=== PATIENT | male | born 1930 | race Caucasian/White ===

== ENCOUNTER 2018-01-07 13:09 | Inpatient (IN) ==
[2018-01-07] MEDS ORDERED: Acetaminophen 325 MG TABLET PO PRN (17:52)
[2018-01-07] MEDS ORDERED: Naloxone 0.4 MG/ML INJ IVP PRN (17:52)
--- NOTE | 2018-01-07 17:54 | Event Note ---
Date of Encounter: 01/07/18 Time of Encounter: 17:50 I have personally performed a face to face evaluation on this patient. I have reviewed and agree with the care plan. History and Exam by me shows: Patient presented on outside hospital for evaluation of severe shortness of breath. Has been progressive over the last 24 hours. He also burning sensation of the upper chest and face. Upon presentation his EKG showed SVT with heart rate in the 200s. He was given adenosine 6 mg and he converted to sinus rhythm. He was given IV fluids and transferred for further workup and care. On exam he is in no acute distress, appears dyskinetic. Heart is regular rate and rhythm S1-S2 with a systolic murmur. Lungs are clear with coarse breath sounds. A: SVT, pancytopenia P: trend troponin, Echo, consult cardiology, consult hematology. Transfuse 2 units platelets.
[2018-01-07] MEDS ORDERED: Ipratropium/Albuterol Neb 3 ML IH PRN (19:01)
[2018-01-07] MEDS ORDERED: Saline Nasal Spray 44 ML BOTTLE NS PRN (19:04)
--- NOTE | 2018-01-07 19:35 | Internal Med History&Physical ---
<Sam Modi - Last Filed: 01/07/18 20:19> Date of Encounter: 01/07/18 Time of Encounter: 18:00 Assessment and Plan (1) Pancytopenia Current visit: Yes Status: Acute Acute pancytopenia w/WBC of 2.9, RBC of 2.47, and platelets of 7K. Pt has chronic anemia and Hgb of 8.1 and Hct of 25.1 today is at or near his recent baseline. Pt. typed and screened. Will transfuse w/2 units of platelets. Platelet count at 23:55. Pt. reports generalized weakness most likely d/t current pancytopenia. Pt. has cancer hx, so concerning for need for further testing. Consult for Oncology Hematology ordered and discussed w/Dr. Barrow and I appreciate the consult. Falls/safety precautions, up with assist, and bed rest w/bathroom privileges w/assist only. Pt. discussed w/Dr. Cohen who is in agreement w/plan of care. Pat is high risk for further morbidity d/t current pancytopenia, anemia, new onset of SVT, generalized weakness and frailty, current tobacco abuse, hx, and other risk factors. Inpatient. (2) SVT (supraventricular tachycardia) Current visit: Yes Status: Acute Acute SVTs today. Pt. presented to [facility] ED today w/onset of sx. Denies hx. Pt. has hx of chronic anemia and is currently pancytopenic. Pt. received adenosine at [facility] which resolved SVT. Continuous cardiac telemetry. Echocardiogram. Cardiology consult ordered and discussed w/Dr. Stauffer and I appreciate the consult. Monitor. (3) SOB (shortness of breath) Current visit: Yes Status: Acute Acute SOB over the past 24 hours. Pt. has hx of COPD and is current smoker of 1/ 2 to 1 PPD. concern is for possible PE d/t D-dimer of 635. D/t pts. renal function, VQ scan ordered to r/o PE. Supplemental O2 w/titration and SpO2 monitoring. DuoNebs Q6 PRN. (4) Generalized weakness Current visit: Yes Status: Acute Acute generalized weakness most likely d/t current pancytopenia and chronic anemia. Nutrition consult ordered for PO supplementation. PT/OT consults ordered to assess for ambulation strength, stability, and safety. Falls/safety precautions/up with assist/bed rest w/bathroom privileges w/assist only. Monitor f/u labs. (5) HLD (hyperlipidemia) Current visit: Yes Status: Chronic Hx of chronic HLD. Lipid panel in a.m. labs. Continue pts. Zocor. Qualifiers: Hyperlipidemia type: pure hypercholesterolemia Qualified Code(s): E78.00 - Pure hypercholesterolemia, unspecified; E78.0 - Pure hypercholesterolemia (6) HTN (hypertension) Current visit: Yes Status: Chronic Hx of chronic HTN. Monitor pt. and VS. Continue pts. Lopressor. Qualifiers: Hypertension type: essential hypertension Qualified Code(s): I10 - Essential (primary) hypertension (7) GERD (gastroesophageal reflux disease) Current visit: Yes Status: Chronic Hx of chronic GERD. IVP Zofran 4 mg every 6 when necessary for nausea and vomiting. IVP Protonix 40 mg daily. Qualifiers: Esophagitis presence: esophagitis presence not specified Qualified Code(s) : K21.9 - Gastro-esophageal reflux disease without esophagitis (8) Anemia Current visit: Yes Status: Chronic Hx of chronic anemia. Hgb 8.1 and Hct 25.1 on admission which is at or near pts. baseline. Patient denies unusual bleeding. Iron profile, B12, and folate levels ordered. H/H in a.m. labs. Monitor. Qualifiers: Anemia type: unspecified type Qualified Code(s): D64.9 - Anemia, unspecified (9) COPD (chronic obstructive pulmonary disease) Current visit: Yes Status: Chronic Hx of chronic COPD. Stable. Supplemental O2 w/titration and SpO2 monitoring. DuoNebs Q6 PRN. Qualifiers: COPD type: unspecified COPD Qualified Code(s): J44.9 - Chronic obstructive pulmonary disease, unspecified (10) DVT prophylaxis Current visit: Yes Status: Acute Bilateral SCDs on LEs for DVT prophylaxis d/t chronic anemia of unknown etiology. Internal Medicine - H&P: HPI Chief complaint: SOB/Generalized Weakness/Palpitations Admitted From: Intrahospital Transfer Plans for Post Hospital Care: Home History of present illness: Mr. 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 Pt. reports hx of anemia w/weakness. Pt. denies recent illness, fever , chills, nausea, vomiting, headache, changes in vision, chest pain, unusual bleeding, abdominal pain, diarrhea, constipation, dizziness, lightheadedness, pre-syncope, or syncope. Past Med Surg Social Fam HX - Past Medical History Source: patient, old records reviewed, obtained from family Medical history: cancer (lung s/p chemo and radiation, and squamous of the vocal cords, spinal stenosis L3-4), COPD (on home oxygen), GERD, hyperlipidemia , osteoporosis, other (vitamin d def, macular degeneration, cataracts bilater, hx of vertebral compression fracture. ) Psychiatric history: no psych history - Past Surgical History Surgical History: orthopedic, other (right shoulder), other (vocal cord polyps, laryngoscopy with bronch for squamous ca of vocal cords.) - Social History Smoking Status: Current every day smoker Packs per day: 1/2 to 1 PPD Smokeless Tobacco Status: No (PT HAS SMOKED X70 YEARS) Alcohol use: none Drug use: none Current living situation: Home, With Family Activity Level: Independent ambulation Recent Out of Country Travel Within the Last 8 Weeks: No Exposure or Possible Exposure to Illness During Travel: No - Family History Father Race: Family Member Ethnicity: Non- Living Status: Age at : 62 Cause of : Asthma/COPD Hx Family Respiratory Disorders: Yes (COPD) Mother Race: Family Member Ethnicity: Non- Living Status: Age at : 99 Cause of : Old age Brother Race: Family Member Ethnicity: Non- Living Status: Age at : 88 Cause of : Complications from surgery Hx Family Cardiac Disorders: Yes Sister Race: Family Member Ethnicity: Non- Living Status: Age at : 90 Cause of : Old age Hx Family Cancer: Yes Internal Medicine - H&P: Meds Simvastatin [Zocor] 40 mg PO HS 08/25/15 [History] Ipratropium/Albuterol Neb [Duoneb] 3 ml IH Q6HR PRN #120 inhsol 08/09/17 [Rx] Metoprolol [Lopressor] 25 mg PO BID 30 Days #60 tablet 08/09/17 [Rx] Acetaminophen [Tylenol] 500 mg PO BID 09/15/17 [History] Cholecalciferol (Vitamin D3) [Vitamin D] 1,000 unit PO DAILY 10/11/17 [History] Sodium Chloride [Saline Nasal Mist] 126 ml NS QID PRN #1 bottle 12/08/17 [Rx] Oxygen 3 each .ROUTE AD 12/11/17 [History] Latanoprost [Xalatan] 1 drop OP AD 01/08/18 [History] 3 Allergy/AdvReac Type Severity Reaction Status Date / Time No Known Allergies Allergy Verified 12/11/17 15:00 All Systems PM: A 10-system review of systems was performed and is negative for pertinent findings except as documented above in the HPI. - Constitutional Constitutional: as per HPI, fatigue, weakness, no chills, no fever(s), no night sweats - EENT Eyes: no change in vision, no discharge, no pain, no photophobia Ears: no ear discharge, no ear pain, no tinnitus Nose, mouth and throat: no dysphagia, no nasal discharge, no neck pain, no sore throat - Breasts Breasts: as per HPI - Cardiovascular Cardiovascular ROS IM: as per HPI, dyspnea, dyspnea on exertion, irregular heart rhythm, palpitations, no chest pain, no diaphoresis, no lightheadedness, no syncope - Respiratory Respiratory: as per HPI, cough, dyspnea, dyspnea on exertion, wheezing, no excessive phlegm production - Gastrointestinal Gastrointestinal: no abdominal pain, no diarrhea, no hematemesis, no hematochezia, no melena, no nausea, no vomiting - Genitourinary Genitourinary ROS male: as per HPI - Musculoskeletal Musculoskeletal ROS IM: no numbness, no tingling - Integumentary Integumentary IM: no rash, no unusual bruising - Neurological Neurological ROS: no confusion, no convulsions, no focal weakness, no numbness, no tingling, no tremor(s) - Psychiatric Psychiatric: as per HPI - Endocrine Endocrine IM: as per HPI - Hematologic/Lymphatic Hematologic/Lymphatic: no easy bruising - Allergic/Immunologic Allergic/Immunologic: as per HPI - Constitutional Vitals: Temp Pulse Resp BP Pulse Ox 98.0 F 106 16 104/57 94 01/07/18 18:44 01/07/18 18:44 01/07/18 18:44 01/07/18 18:44 01/07/18 18:44 General appearance: Present: cooperative, A&O X 3, pleasant, no acute distress, underweight, answers questions appropriately - Head Head exam: Present: atraumatic, normocephalic - Eye Eye exam: Present: PERRL, conjuntiva pink, sclera anicteric Pupils: Present: PERRL - ENT ENT exam: Present: normal exam - Neck Neck exam general surgery: Present: normal inspection, supple, trachea midline. Absent: lymphadenopathy - Respiratory Respiratory exam: Present: decreased breath sounds, wheezes. Absent: accessory muscle use, rales, rhonchi - Cardiovascular Cardiovascular exam: Present: irregular rhythm - GI/Abdominal GI/Abdominal exam: Present: normal bowel sounds, soft, no peritoneal signs. Absent: distended, tenderness - Rectal Rectal exam: Present: deferred - Additional comments: exam deferred. - Extremities Exam Extremities exam: Present: warm, radial pulses palpable and symmetrical. Absent : calf tenderness, cyanotic, pedal edema - Back Exam Back exam: Present: normal inspection - Neurological Exam Neurological exam: Present: CN II-XII intact, oriented X3, no focal deficits. Absent: pronater drift, facial droop, speech deficit - Psychiatric Psychiatric exam: Present: normal affect, normal mood - Skin Skin exam: Present: dry, intact Internal Med - H&P Results - Diagnostic Studies Chest x-ray Additional comments: EXAMINATION: SINGLE VIEW OF THE CHEST 01/07/2018 11:15 am COMPARISON: 07/31/2017 HISTORY: ORDERING SYSTEM PROVIDED HISTORY: sob FINDINGS: Frontal view of the chest demonstrates no lines or tubes. Stable cardiomediastinal silhouette. Hyperexpanded lungs with flattening of the hemidiaphragms is seen. Interval appearance of reticular and ground-glass opacities throughout the lungs. No significant pleural effusions. No pneumothorax. No acute osseous abnormality. XR/XR chest 1V portable IMPRESSION: 1. Interval appearance of reticular and ground-glass opacities throughout the lungs. Differential considerations include pulmonary edema or infection. 2. COPD. D/ / 01/07/2018 11:18:59 Mercedes Kyle MD / earnold Interpreting Provider: Mercedes Kyle MD <Rivera Cohen - Last Filed: 01/08/18 09:59> Date of Encounter: 01/07/18 Internal Medicine - H&P: HPI History of present illness: Mr. Smart is a 87 year old male All Systems PM: A 10-system review of systems was performed and is negative for pertinent findings except as documented above in the HPI. - Constitutional Vitals: Temp Pulse Resp BP Pulse Ox 97.8 F 69 16 103/53 95 01/08/18 08:25 01/08/18 08:25 01/08/18 08:25 01/08/18 08:25 01/08/18 08:25 Internal Med - H&P Results - Labs CBC & Chem 7: 01/08/18 08:08 01/08/18 08:08 Labs: Short CBC 01/07/18 01/08/18 Range/Units 20:13 08:08 WBC 2.5 L (4.3-11.1) K/mcL Hgb 7.6 L (12.9-16.9) g/dL Hct 23.2 L (37.5-50.1) % Plt Count 10 L* 102 L D (140-400) K/mcL BMP 01/08/18 08:08 Sodium 138 Potassium 3.8 Chloride 109 H Carbon Dioxide 24 BUN 19 Creatinine 0.83 Glucose 105 Calcium 8.7 Cardiac Enzymes 01/07/18 01/08/18 Range/Units 20:13 00:11 Troponin I < 0.03 0.03 (< 0.04) ng/mL Liver Function 01/08/18 Range/Units 08:08 Total Bilirubin 0.6 (0.3-1.0) mg/dL AST 14 (13-39) Units/L ALT 14 (7-52) Units/L Alkaline Phosphatase 61 (34-104) Units/L Albumin 3.5 (3.5-5.7) g/dL - Impressions ITS Impressions Pulmonary Perfusion Imaging 01/08/18 07:05 IMPRESSION: Very low probability for pulmonary embolism. D/ / John Richards MD / John Richards MD Interpreting Provider: John Richards MD - Attending Attestation I have personally performed a face to face evaluation on this patient. I have reviewed and agree with the care plan. History and Exam by me shows: I have personally performed a face to face evaluation on this patient. I have reviewed and agree with the care plan. History and Exam by me shows: Patient presented on outside hospital for evaluation of severe shortness of breath associated with cough (cough is chronic for him). It has been progressive over the last 24 hours. He also burning sensation of the upper chest and face. Upon presentation his EKG showed SVT with heart rate in the 200s. He was given adenosine 6 mg and he converted to sinus rhythm. He was given IV fluids and transferred for further workup and care. On exam he is in no acute distress, appears dyskinetic. Heart is regular rate and rhythm S1-S2 with a systolic murmur. Lungs are clear with coarse breath sounds. A: SVT, pancytopenia P: trend troponin, Echo, consult cardiology, consult hematology. Transfuse 2 units platelets.
[2018-01-07] MEDS ORDERED: Pantoprazole 40 MG VIAL IVP SCH (19:45)
[2018-01-07] MEDS ORDERED: Ondansetron 4 MG/2 ML VIAL IVP PRN (19:49)
[2018-01-07 20:41] LABS: % Iron Saturation 39 % (20-55); Iron 88 mcg/dL (65-175); Transferrin 160 mg/dL (203-362)
[2018-01-07] MEDS ORDERED: 0.9 % Sodium Chloride 250 ML ONE (22:29)
[2018-01-08] MEDS ORDERED: 0.9 % Sodium Chloride 250 ML ONE ×2 (03:37→12:27)
[2018-01-08] MEDS: Levalbuterol Neb 0.63 MG/3 ML IH PRN ×2 (05:03→11:15)
[2018-01-08 08:31] LABS: Basophils % 1.2 %; Eosinophils # 0.1 K/mcL (0.0-0.6); Eosinophils % 3.2 %; Hematocrit 23.2 % (37.5-50.1); Hemoglobin 7.6 g/dL (12.9-16.9); Immature Granulocytes % 4.4 % (0-4); Lymphocytes # 0.4 K/mcL (0.6-4.6); Lymphocytes % 17.3 %; Mean Corpuscular HGB Conc 32.8 g/dL (31.6-35.5); Mean Corpuscular Hemoglobin 32.9 pg (28.0-33.3); Mean Corpuscular Volume 100.4 fL (83.0-100.0); Mean Platelet Volume 9.7 fL (9.4-12.4); Monocytes # 0.1 K/mcL (0.0-1.3); Monocytes % 5.2 %; Neutrophils # 1.7 K/mcL (1.6-8.9); Platelet Count 102 K/mcL (140-400); Red Blood Count 2.31 M/mcL (4.19-5.50); Red Cell Distribution Width 20.3 % (11.5-14.5); Segmented Neutrophils % 68.7 %
[2018-01-08 08:33] LABS: INR 1.3; Prothrombin Time 14.1 Seconds (9.4-12.1)
[2018-01-08 08:36] LABS: Activated Partial Thrombo Time 28.7 Seconds (26.0-36.0)
--- NOTE | 2018-01-08 09:10 | Internal Med Progress Note ---
Date of Encounter: 01/08/18 Time of Encounter: 09:08 - Assessment and plan (1) Pancytopenia Current Visit: Yes Status: Acute Assessment and plan: per hx. Follows with Dr. Jones. WBC 2.9, Hgb 8.1, PLTs 10 on admission. Received 2 units FFP with improvement in PLTs to 102. Hgb down to 7.6 on 01/08. Transfuse 1 unit PRBC. Oncology consulted (2) Anemia Current Visit: Yes Status: Chronic Assessment and plan: Hgb down to 7.6 on 01/08. Symptomatic with SOB. Transfuse 1 unit PRBC. Oncology consulted Qualifiers: Anemia type: unspecified type Qualified Code(s): D64.9 - Anemia, unspecified (3) SVT (supraventricular tachycardia) Current Visit: Yes Status: Acute Assessment and plan: Reported SVT per EMS, resolved with adenosine. TTE 07/2017 EF preserved 65%, mild MR, mild TR, severe pulmonary HTN. HRs remain in low 100s; unable to uptitrate BB due to soft/borderline BP. Evaluated by Cardiology who recommended continuing home BB. Duonebs changed to xopenex. No further cardiac work-up while inpt. (4) COPD (chronic obstructive pulmonary disease) Current Visit: Yes Status: Chronic Assessment and plan: per hx. Suspect mild exacerbation with wheezing. No increase in sputum production. Afebrile. Hold on ATB. Add steroid burst, duonebs Qualifiers: COPD type: unspecified COPD Qualified Code(s): J44.9 - Chronic obstructive pulmonary disease, unspecified (5) HTN (hypertension) Current Visit: Yes Status: Chronic Assessment and plan: per hx. BP soft/borderline. Cont home BB while closely monitoring heart rate/BP. Qualifiers: Hypertension type: essential hypertension Qualified Code(s): I10 - Essential (primary) hypertension (6) PAF (paroxysmal atrial fibrillation) Current Visit: Yes Status: Acute Assessment and plan: per hx. With tachycardia as noted above. No anticoagulation with anemia, thrombocyte cytopenia. 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 S/p chemo/radiation. Oncology consulted (8) DVT prophylaxis Current Visit: Yes Status: Acute Assessment and plan: SCD - Subjective Interval history: Seen and examined at bedside. Patient is new to me. Information obtained from chart review and patient report. He is complaining of shortness of breath that is worse with exertion as well as generalized weakness and malaise. No chest pain. No active bleeding. Says he feels a little better overall. - Constitutional Vitals: Temp Pulse Resp BP Pulse Ox 97.8 F 69 16 103/53 95 01/08/18 08:25 01/08/18 08:25 01/08/18 08:25 01/08/18 08:25 01/08/18 08:25 General appearance: Present: cooperative, A&O X 3, pleasant, no acute distress, underweight, answers questions appropriately - Head Head exam: Present: atraumatic, normocephalic - Eye Eye exam: Present: PERRL, conjuntiva pink, sclera anicteric Pupils: Present: PERRL - Neck Neck exam general surgery: Present: supple, trachea midline. Absent: lymphadenopathy - Respiratory Respiratory exam: Present: CTAB. Absent: accessory muscle use, rales, rhonchi, wheezes - Cardiovascular Cardiovascular exam: Present: RRR, +S1, +S2. Absent: diastolic murmur, gallop, rubs, systolic murmur - GI/Abdominal GI/Abdominal exam: Present: normal bowel sounds, soft, no peritoneal signs. Absent: distended, tenderness - Extremities Exam Extremities exam: Present: warm, radial pulses palpable and symmetrical. Absent : calf tenderness, cyanotic, pedal edema - Neurological Exam Neurological exam: Present: CN II-XII intact, oriented X3, no focal deficits. Absent: pronater drift, facial droop, speech deficit - Skin Skin exam: Present: dry, intact Internal Medicine: Result - Labs CBC & Chem 7: 01/08/18 08:08 01/08/18 08:08 Labs: Short CBC 01/07/18 01/08/18 Range/Units 20:13 08:08 WBC 2.5 L (4.3-11.1) K/mcL Hgb 7.6 L (12.9-16.9) g/dL Hct 23.2 L (37.5-50.1) % Plt Count 10 L* 102 L D (140-400) K/mcL Cardiac Enzymes 01/07/18 01/08/18 Range/Units 20:13 00:11 Troponin I < 0.03 0.03 (< 0.04) ng/mL - ABG Interpretation ABG results: PT/INR, D-dimer PT 14.1 Seconds (9.4-12.1) H 01/08/18 08:08 - Impressions Impressions Pulmonary Perfusion Imaging 01/08/18 07:05 IMPRESSION: Very low probability for pulmonary embolism. D/ / John Richards MD / John Richrads MD Interpreting Provider: John Richards MD Consult Discharge Plan - Plan Referrals: Lynne Kim MD [Primary Care Provider] -
[2018-01-08 09:12] LABS: Alanine Aminotransferase 14 Units/L (7-52); Albumin 3.5 g/dL (3.5-5.7); Albumin/Globulin Ratio 0.9 (1.1-2.2); Alkaline Phosphatase 61 Units/L (34-104); Aspartate Amino Transferase 14 Units/L (13-39); BUN/Creatinine Ratio 23 (6-26); Bilirubin,Total 0.6 mg/dL (0.3-1.0); Blood Urea Nitrogen 19 mg/dL (8-23); Calcium 8.7 mg/dL (8.6-10.3); Carbon Dioxide 24 mEq/L (23-29); Chloride 109 mEq/L (98-107); Chol/HDL Ratio 2.2 (0-4.9); Cholesterol 103 mg/dL (< 200); Globulin 3.7 g/dL (2.4-3.5); Glucose 105 mg/dL (70-105); HDL Cholesterol 47 mg/dL (40-59); LDL Cholesterol,Calculated 44 mg/dL (0-99); Magnesium 1.9 mg/dL (1.6-2.6); Osmolality,Calculated 289 (280-300); Potassium 3.8 mEq/L (3.5-5.1); Sodium 138 mEq/L (136-145); Total Protein 7.2 g/dL (6.4-8.9); Triglycerides 61 mg/dL (< 150); eGFR For African Americans > 60 (> 60); eGFR For Non-African Americans > 60 (> 60)
[2018-01-08 09:16] LABS: Hemoglobin A1C 5.5 %
--- NOTE | 2018-01-08 09:22 | Cardiology Consult Note ---
Date of Encounter: 01/08/18 Time of Encounter: 09:17 Assessment and Plan (1) SVT (supraventricular tachycardia) Current Visit: Yes Status: Acute Reported SVT per EMS, resolved with adenosine. Suspect secondary to underlying lung disease, also pancytopenic. Known COPD. Currently requiring 4L O2, on 2L at home. Hx of lung ca and vocal cord SCC, in remission with last treatments being in 2013. On Lopressor 25mg BID at home. BP marginal, will not tolerate increase. Continue current Lopressor dose. K 3.8, Mag 1.9. Echo 07/2017 EF preserved 65%, mild MR, mild TR, severe phtn est RVSP 59mmHg. No further cardiac work-up while inpt. Anticipate sign off once seen and evaluated by Dr. Stauffer. (2) PAF (paroxysmal atrial fibrillation) Current Visit: Yes Status: Acute PAF on prior EKG. Currently SR. [id number] 2 for age. Given pancytopenia with plt count as low as 7k, no anticoagulation and no ASA. (3) Pancytopenia Current Visit: Yes Status: Acute Sees oncology as outpt, has previously declined bone marrow biopsy. Management per primary team/hematology oncology. Discussion w patient/family: The assessment and plan as outlined above was discussed with the patient and/or family members who expressed understanding and agreement. All questions were answered. Thank you for involving us in the care of your patient. Please call with any questions. I will discuss all the above with Dr. Stauffer and make changes as necessary. History of Present Illness Consult date: 01/08/18 Requesting physician: Sam Modi Consult reason: SVT Chief complaint: dyspnea, palpitations, dizziness, weakness History of present illness: Mr. 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 Per reports, EMS found pt to be in SVT, gave adenosine with resolution. There are no EKGs or telemetry strips to confirm this. Pt reports ongoing chronic dyspnea, but palpitations and dizziness were new onset, now improved. Pt reports hx of anemia w/weakness, states infusions have been ordered by oncology when needed. Plt count found to be 7k. Transfused 2 units of platelets and plt 102k today. Troponins negative x 3. Pt. denies chest pain or lower extremity edema. Cardiology consulted for further recommendations. CXR showed Interval appearance of reticular and ground-glass opacities throughout the lungs. Differential considerations include pulmonary edema or infection. COPD. VQ scan very low probability for PE. Prior CV testing: TTE 08/02/17: LVEF 65%, mild MR, moderate TR, severe phtn, est RVSP 59mmHg. Past Med Surg Social Fam HX - Past Medical History Medical history: cancer (lung s/p chemo and radiation, and squamous of the vocal cords, spinal stenosis L3-4), COPD (on home oxygen), GERD, hyperlipidemia , osteoporosis, other (vitamin d def, macular degeneration, cataracts bilater, hx of vertebral compression fracture. ) Psychiatric history: no psych history - Past Surgical History Surgical History: orthopedic, other (right shoulder), other (vocal cord polyps, laryngoscopy with bronch for squamous ca of vocal cords.) - Social History Smoking Status: Current every day smoker Packs per day: 1/2 to 1 PPD Smokeless Tobacco Status: No (PT HAS SMOKED X70 YEARS) Alcohol use: none Drug use: none - Family History Father Race: Family Member Ethnicity: Non- Living Status: Age at : 62 Cause of : Asthma/COPD Hx Family Respiratory Disorders: Yes (COPD) Mother Race: Family Member Ethnicity: Non- Living Status: Age at : 99 Cause of : Old age Brother Race: Family Member Ethnicity: Non- Living Status: Age at : 88 Cause of : Complications from surgery Hx Family Cardiac Disorders: Yes Sister Race: Family Member Ethnicity: Non- Living Status: Age at : 90 Cause of : Old age Hx Family Cancer: Yes Medications and Allergies Simvastatin [Zocor] 40 mg PO HS 08/25/15 [History] Ipratropium/Albuterol Neb [Duoneb] 3 ml IH Q6HR PRN #120 inhsol 08/09/17 [Rx] Metoprolol [Lopressor] 25 mg PO BID 30 Days #60 tablet 08/09/17 [Rx] Acetaminophen [Tylenol] 500 mg PO BID 10/27/17 [History] Cholecalciferol (Vitamin D3) [Vitamin D] 1,000 unit PO DAILY 10/11/17 [History] Sodium Chloride [Saline Nasal Mist] 126 ml NS QID PRN #1 bottle 12/08/17 [Rx] Oxygen 3 each .ROUTE AD 12/11/17 [History] Latanoprost [Xalatan] 1 drop OP AD 01/08/18 [History] 3 Allergy/AdvReac Type Severity Reaction Status Date / Time No Known Allergies Allergy Verified 12/11/17 15:00 All Systems Review: A 10-system review of systems was performed and is negative for pertinent findings except as documented above in the HPI. - Constitutional Constitutional: weakness - Cardiovascular Cardiovascular: as per HPI, dyspnea at rest, dyspnea on exertion, palpitations - Respiratory Respiratory: cough, dyspnea Physical Examination Vital Signs, Last 4 Hours Temp Pulse Resp BP Pulse Ox 01/08/18 08:25 97.8 F 69 16 103/53 95 01/08/18 06:46 98.5 F 108 22 103/62 98 Vital Signs Temp Pulse Resp BP Pulse Ox 01/08/18 08:25 97.8 F 69 16 103/53 95 01/08/18 06:46 98.5 F 108 22 103/62 98 01/08/18 05:03 19 95 01/08/18 04:01 98.7 F 101 24 112/67 93 01/08/18 03:46 98.6 F 102 24 102/54 94 01/08/18 01:45 98.6 F 103 18 96/45 90 01/07/18 23:07 98.8 F 93 18 97/58 94 01/07/18 22:45 98.3 F 94 16 91/50 90 01/07/18 18:44 98.0 F 106 16 104/57 94 01/07/18 17:15 98.4 F 98 14 93/52 94 Intake and Output 01/07/18 01/08/18 01/08/18 23:59 07:59 15:59 Intake Total 0 / 0 870 / 870 Output Total 200 / 200 Balance 0 / 0 670 / 670 Intake: IV Fluids 125 / 125 0.9 % Sodium Chloride 250 ML @ 125 / 125 0 mls/hr .ROUTE .[facility] Rx #:[id number] Blood Product 0 / 745 / 745 Platelet Pheresis Lp Irr 1st 450 / 450 Unit [id number] Platelet Pheresis Lp Irr 2nd 0 / 0 295 / 295 Unit [id number] Output: Urine 200 / 200 Other: # Voids 1 Weight 45 kg General: Conversant, No Apparent Distress HEENT: Atraumatic, Normocephaly, Mucus Membranes Moist Neck: No JVD, Normal carotid pulses Cardiac: Reg Rate and Rhythm, Normal S1 and S2, No Murmur Lungs: Other (diminished) Neuro: Alert and responsive, No focal deficits noted Abdomen: Soft, Non-Tender Skin: No rashes noted on visualized skin Musculoskeletal: No Chest Wall Tenderness Extremities: No Clubbing, No Cyanosis, No Edema, Normal Pulses Results 01/08/18 08:08 01/08/18 08:08 Lab Results 01/07/18 01/07/18 01/08/18 20:13 20:13 00:11 WBC Hgb Hct Plt Count 10 L* INR APTT Sodium Potassium Chloride Carbon Dioxide BUN Creatinine Glucose Calcium Magnesium Total Bilirubin AST ALT Alkaline Phosphatase Troponin I < 0.03 0.03 01/08/18 01/08/18 01/08/18 08:08 08:08 08:08 WBC 2.5 L Hgb 7.6 L Hct 23.2 L Plt Count 102 L D INR 1.3 APTT 28.7 Sodium 138 Potassium 3.8 Chloride 109 H Carbon Dioxide 24 BUN 19 Creatinine 0.83 Glucose 105 Calcium 8.7 Magnesium 1.9 Total Bilirubin 0.6 AST 14 ALT 14 Alkaline Phosphatase 61 Troponin I Short CBC 01/08/18 01/07/18 Range/Units 08:08 20:13 WBC 2.5 L (4.3-11.1) K/mcL Hgb 7.6 L (12.9-16.9) g/dL Hct 23.2 L (37.5-50.1) % Plt Count 102 L D 10 L* (140-400) K/mcL BMP 01/08/18 Range/Units 08:08 Sodium 138 (136-145) mEq/L Potassium 3.8 (3.5-5.1) mEq/L Chloride 109 H (98-107) mEq/L Carbon Dioxide 24 (23-29) mEq/L BUN 19 (8-23) mg/dL Creatinine 0.83 (0.70-1.30) mg/dL Glucose 105 (70-105) mg/dL Calcium 8.7 (8.6-10.3) mg/dL Cardiac Enzymes 01/08/18 01/07/18 Range/Units 00:11 20:13 Troponin I 0.03 < 0.03 (< 0.04) ng/mL Liver Function 01/08/18 Range/Units 08:08 Total Bilirubin 0.6 (0.3-1.0) mg/dL AST 14 (13-39) Units/L ALT 14 (7-52) Units/L Alkaline Phosphatase 61 (34-104) Units/L Albumin 3.5 (3.5-5.7) g/dL Impressions Pulmonary Perfusion Imaging 01/08/18 07:05 IMPRESSION: Very low probability for pulmonary embolism. D/ / John Richards MD / John Richards MD Interpreting Provider: John Richards MD Active Medications Acetaminophen (Tylenol) 650 mg PO Q6HR PRN PRN Reason: Mild Pain/Fever Stop: 07/09/18 17:53 Guaifenesin (Robitussin/Dm) 10 ml PO Q6HR PRN PRN Reason: Cough Stop: 07/10/18 03:59 Last Admin: 01/08/18 05:16 Dose: 10 ml Levalbuterol HCl (Xopenex) 0.63 mg IH [id number] PRN PRN Reason: Shortness Of Breath/Wheezing Stop: 07/10/18 04:01 Last Admin: 01/08/18 05:03 Dose: 0.63 mg Metoprolol Tartrate (Lopressor) 25 mg PO BID HENRRY Stop: 07/09/18 21:01 Last Admin: 01/08/18 09:07 Dose: 25 mg Naloxone HCl (Narcan) 0.4 mg IVP Q2MIN PRN PRN Reason: SEE COMMENTS Stop: 07/09/18 17:53 Omeprazole (Prilosec) 40 mg PO DAILY@0730 [facility] PRN Reason: Protocol Stop: 07/10/18 08:01 Last Admin: 01/08/18 09:07 Dose: 40 mg Ondansetron HCl (Zofran) 4 mg IVP Q6HR PRN; Protocol PRN Reason: Nausea And Vomiting Stop: 07/09/18 19:50 Simvastatin (Zocor) 40 mg PO HS HENRRY PRN Reason: Protocol Stop: 07/09/18 21:01 Last Admin: 01/07/18 20:20 Dose: 40 mg Sodium Chloride ([place] Nasal [place]) 2 spray NS Q2H PRN PRN Reason: Congestion Stop: 07/09/18 19:05 - Imaging and Cardiology Echo: report reviewed - EKG Interpretation EKG results cardiology: personally reviewed (Sinus tach, rate 103), other (12 hr tele AVG HR 101, SR, no significant pauses or arrhythmias noted) Consult Discharge Plan - Plan Referrals: Lynne Kim MD [Primary Care Provider] -
[2018-01-08 10:20] LABS: Hypochromasia Present (Not Present); Macrocytosis Present (Not Present); Microcytosis Present (Not Present); Platelet Estimate Decreased (Normal)
--- NOTE | 2018-01-08 13:51 | Oncology Inp Consult Note ---
<Iza Rodrigez - Last Filed: 01/08/18 15:41> Date of Encounter: 01/08/18 Time of Encounter: 13:51 Assessment and Plan (1) Pancytopenia Status: Acute Assessment and plan: H/O squamous cell carcinoma of lung and vocal cords. S/P concurrent chemoradiation (due to stage IIIB Rx first) therapy to chest completed 04/24/14 (-04/24/14). He has completed 8wkly treatments of carbotaxol, (01/31--04/02) which started prior to RT. Detailed in HPI. Pancytopenia present and worsening since July 2017. He is now agreeable to bone marrow aspiration biopsy w/ FISH and cytogenetics. Risks and benefits of procedure explained to patient and patients family, patient agrees with plan. He understands that he may have MDS secondary to prior chemorad treatments, and if diagnosis is correlated to prior treatment, treatment will likely be supportive in nature. Other differentials may include acute leukemia or myelofibrosis. Will check serum EPO. Continue to monitor CBC with diff. WBC 2.5, hgb 7.6, hct 23%, platelets 102 s/ p 1 unit PRBC (transfusing now, hgb results prior) and 2 units platelets transfused. He continues to report SOB- CXR shows interval appearance of reticular and ground-glass opacities throughout the lungs which could be secondary to infection or pulmonary edema, along with evidence of COPD. VQ scan shows very low probability for pulmonary embolism. Denies s/s bleeding. Will arrange for follow up with Dr. Jones next week to discuss BMB results. Please refer to Dr. Barrow's attestation below for further details. - Data of Consult Patient: known to practice within the last 3 years Consult date: 01/08/18 Requesting Physician: Lnaden Aragon Primary Care Provider: Lynne Kim, - Consult Narrative Reason for consult: squamous cell carcinoma of lung and vocal cords History of present illness: Mr. Smart is a 87 year old male with oncologic history significant for squamous cell carcinoma of the vocal cord as well as left hilar/mediastinal PET positive lymphadenopathy. Biopsy was also suggestive of squamous cell carcinoma of lung and vocal cords. Two primaries/metastatic head and neck cancer. The patient is S/P concurrent chemoradiation (due to stage IIIB Rx first) therapy to chest completed 04/24/14 (03/03-04/24/14). He has completed 8wkly treatments of carbotaxol, (01/31--04/02) which started prior to RT. He has not had any specific treatment for neck (chemo was given for chest--probably helped vocal cord lesion). Repeat ENT bx showed no malignancy ENT bx 12/06 reviewed and benign, follows up 6 mo/annually. He has had previous, multiple discussions with Dr. Jones since his initial presentation of pancytopenia in July 2017, regarding the need for bone marrow biopsy for definitive diagnosis. 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 Previously did not consent to procedure despite discussion of risks vs benefits. He smokes cigarettes daily and on oxygen at home as needed. Smoking cessation advised. Prior CT chest shows no signs of recurrence Currently admitted for SVT, Pancyotpenia, SOB/weakness. Past Med Surg Social Fam HX - Past Medical History Medical history: cancer (lung s/p chemo and radiation, and squamous of the vocal cords, spinal stenosis L3-4), COPD (on home oxygen), GERD, hyperlipidemia , osteoporosis, other (vitamin d def, macular degeneration, cataracts bilater, hx of vertebral compression fracture. ) Psychiatric history: no psych history - Past Surgical History Surgical History: orthopedic, other (right shoulder), other (vocal cord polyps, laryngoscopy with bronch for squamous ca of vocal cords.) - Social History Smoking Status: Current every day smoker Packs per day: 1/2 to 1 PPD Smokeless Tobacco Status: No (PT HAS SMOKED X70 YEARS) Alcohol use: none Drug use: none - Family History Father Race: Family Member Ethnicity: Non- Living Status: Age at : 62 Cause of : Asthma/COPD Hx Family Respiratory Disorders: Yes (COPD) Mother Race: Family Member Ethnicity: Non- Living Status: Age at : 99 Cause of : Old age Brother Race: Family Member Ethnicity: Non- Living Status: Age at : 88 Cause of : Complications from surgery Hx Family Cardiac Disorders: Yes Sister Race: Family Member Ethnicity: Non- Living Status: Age at : 90 Cause of : Old age Hx Family Cancer: Yes Medications and Allergies Simvastatin [Zocor] 40 mg PO HS 08/25/15 [History] Ipratropium/Albuterol Neb [Duoneb] 3 ml IH Q6HR PRN #120 inhsol 08/09/17 [Rx] Metoprolol [Lopressor] 25 mg PO BID 30 Days #60 tablet 08/09/17 [Rx] Acetaminophen [Tylenol] 500 mg PO BID 09/15/17 [History] Cholecalciferol (Vitamin D3) [Vitamin D] 1,000 unit PO DAILY 10/11/17 [History] Sodium Chloride [Saline Nasal Mist] 126 ml NS QID PRN #1 bottle 12/08/17 [Rx] Oxygen 3 each .ROUTE AD 12/11/17 [History] Latanoprost [Xalatan] 1 drop OP AD 01/08/18 [History] 3 Allergy/AdvReac Type Severity Reaction Status Date / Time No Known Allergies Allergy Verified 12/11/17 15:00 Constitutional: Present: anorexia, fatigue, weakness, weight loss. Absent: chills, fever(s) Eyes: Absent: change in vision Cardiovascular: Present: as per HPI. Absent: chest pain, irregular heart rhythm , palpitations Respiratory: Present: dyspnea. Absent: hemoptysis Gastrointestinal: Absent: abdominal pain, hematemesis, hematochezia, melena, nausea, vomiting Additional comments: denies dysuria or hematuria Musculoskeletal: Present: muscle weakness Integumentary: Absent: skin ulcer, wounds Neurological: Absent: focal weakness Psychiatric: Present: change in appetite Hematologic/Lymphatic: Absent: easy bleeding, lymphadenopathy Oncology - Exam - Constitutional Vitals: Temp Pulse Resp BP Pulse Ox 98.5 F 108 20 108/64 95 01/08/18 12:49 01/08/18 12:49 01/08/18 12:49 01/08/18 12:49 01/08/18 12:49 General appearance: cooperative, no acute distress, thin, no febrile - Head Head exam: Present: atraumatic - Respiratory Respiratory exam: Present: CTAB. Absent: respiratory distress - Cardiovascular Cardiovascular exam: Present: RRR, +S1, +S2 - GI/Abdominal GI/Abdominal exam: Present: normal bowel sounds, soft. Absent: tenderness - Extremities Exam Extremities exam: Present: normal inspection. Absent: calf tenderness - Neurological Exam Neurological exam: Present: alert, oriented X3, no focal deficits, strengths equal and symetr throughout - Psychiatric Psychiatric exam: Present: normal affect, normal mood - Skin Skin exam: Present: pallor, warm Oncology - Results Labs: Short CBC 01/07/18 01/08/18 Range/Units 20:13 08:08 WBC 2.5 L (4.3-11.1) K/mcL Hgb 7.6 L (12.9-16.9) g/dL Hct 23.2 L (37.5-50.1) % Plt Count 10 L* 102 L D (140-400) K/mcL Neutrophils # 1.7 (1.6-8.9) K/mcL BMP 01/08/18 08:08 Sodium 138 Potassium 3.8 Chloride 109 H Carbon Dioxide 24 BUN 19 Creatinine 0.83 Glucose 105 Calcium 8.7 Cardiac Enzymes 01/07/18 01/08/18 Range/Units 20:13 00:11 Troponin I < 0.03 0.03 (< 0.04) ng/mL Liver Function 01/08/18 Range/Units 08:08 Total Bilirubin 0.6 (0.3-1.0) mg/dL AST 14 (13-39) Units/L ALT 14 (7-52) Units/L Alkaline Phosphatase 61 (34-104) Units/L Albumin 3.5 (3.5-5.7) g/dL Consult Discharge Plan - Plan Referrals: Lynne Kim MD [Primary Care Provider] - <Grant Barrow - Last Filed: 01/09/18 09:43> Date of Encounter: 01/09/18 - Data of Consult Requesting Physician: Ciara Nava MD Primary Care Provider: Lynne Kim, - Consult Narrative History of present illness: Mr. Smart is a 87 year old male Oncology - Exam - Constitutional Vitals: Temp Pulse Resp BP Pulse Ox 97.7 F 101 17 117/72 97 01/09/18 07:40 01/09/18 07:40 01/09/18 07:40 01/09/18 07:40 01/09/18 07:40 Oncology - Results Labs: Short CBC 01/08/18 01/09/18 Range/Units 08:08 03:54 WBC 3.7 L (4.3-11.1) K/mcL Hgb 8.8 L (12.9-16.9) g/dL Hct 26.1 L (37.5-50.1) % Plt Count 75 L (140-400) K/mcL Neutrophils # 1.7 3.3 (1.6-8.9) K/mcL BMP 01/09/18 03:54 Sodium 136 Potassium 4.4 Chloride 109 H Carbon Dioxide 21 L BUN 18 Creatinine 0.69 L Glucose 148 H Calcium 8.7 Liver Function 01/09/18 Range/Units 03:54 Total Bilirubin 0.6 (0.3-1.0) mg/dL AST 12 L (13-39) Units/L ALT 13 (7-52) Units/L Alkaline Phosphatase 61 (34-104) Units/L Albumin 3.3 L (3.5-5.7) g/dL - Attending Attestation Seen and examined patient and agree with assessment and plan. 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 It appears that it could be quite aggressive process. He is now amenable to BM Bx which we will order. Agree with transfusion support. He may benefit from epo as outpatient. Will get Epo level while he is here.
[2018-01-08] MEDS: predniSONE 20 MG TABLET PO SCH (17:35)
[2018-01-09 05:23] LABS: Hemoglobin 8.8 g/dL (12.9-16.9)
[2018-01-09 05:24] LABS: Hematocrit 26.1 % (37.5-50.1); Immature Platelets 1.8 % (1.1-6.1); Mean Corpuscular HGB Conc 33.7 g/dL (31.6-35.5); Mean Corpuscular Hemoglobin 33.1 pg (28.0-33.3); Mean Corpuscular Volume 98.1 fL (83.0-100.0); Mean Platelet Volume 10.5 fL (9.4-12.4); Monocytes # 0.1 K/mcL (0.0-1.3); Red Blood Count 2.66 M/mcL (4.19-5.50); Red Cell Distribution Width 19.2 % (11.5-14.5)
[2018-01-09 05:30] LABS: Platelet Count 75 K/mcL (140-400)
[2018-01-09 05:55] LABS: Alanine Aminotransferase 13 Units/L (7-52); Albumin 3.3 g/dL (3.5-5.7); Albumin/Globulin Ratio 0.9 (1.1-2.2); Alkaline Phosphatase 61 Units/L (34-104); Aspartate Amino Transferase 12 Units/L (13-39); BUN/Creatinine Ratio 26 (6-26); Bilirubin,Total 0.6 mg/dL (0.3-1.0); Blood Urea Nitrogen 18 mg/dL (8-23); Calcium 8.7 mg/dL (8.6-10.3); Carbon Dioxide 21 mEq/L (23-29); Chloride 109 mEq/L (98-107); Globulin 3.8 g/dL (2.4-3.5); Glucose 148 mg/dL (70-105); Osmolality,Calculated 287 (280-300); Potassium 4.4 mEq/L (3.5-5.1); Sodium 136 mEq/L (136-145); Total Protein 7.1 g/dL (6.4-8.9); eGFR For African Americans > 60 (> 60); eGFR For Non-African Americans > 60 (> 60)
[2018-01-09 06:00] LABS: Anisocytosis 1+ (Not Present); Eosinophils # 0.1 K/mcL (0.0-0.6); Lymphocytes # 0.2 K/mcL (0.6-4.6); Neutrophils # 3.3 K/mcL (1.6-8.9); Platelet Estimate Decreased (Normal)
[2018-01-09] MEDS: predniSONE 20 MG TABLET PO SCH (09:02)
--- NOTE | 2018-01-09 09:29 | Internal Med Progress Note ---
Date of Encounter: 01/09/18 Time of Encounter: 09:45 - Assessment and plan (1) Anemia Current Visit: Yes Status: Chronic Assessment and plan: Hemoglobin 8.8 today. Stable after transfusion. We will continue to monitor blood counts. Bone marrow biopsy plan today to look for any myelodysplastic syndrome. Qualifiers: Anemia type: unspecified type Qualified Code(s): D64.9 - Anemia, unspecified (2) COPD (chronic obstructive pulmonary disease) Current Visit: Yes Status: Chronic Assessment and plan: Being treated for mild exacerbation. On oral steroids and Xopenex. Breathing better today. No significant wheezing on examination today. Begin to taper steroids from tomorrow. Qualifiers: COPD type: unspecified COPD Qualified Code(s): J44.9 - Chronic obstructive pulmonary disease, unspecified (3) HTN (hypertension) Current Visit: Yes Status: Chronic Assessment and plan: Blood pressure is well controlled at this time. Qualifiers: Hypertension type: essential hypertension Qualified Code(s): I10 - Essential (primary) hypertension (4) Laryngeal cancer Current Visit: Yes Status: Resolved Assessment and plan: Patient with squamous cell carcinoma of lung and vocal cords. Has previously completed concurrent chemoradiation therapy. Follows with oncology as outpatient. (5) PAF (paroxysmal atrial fibrillation) Current Visit: Yes Status: Acute Assessment and plan: Rate controlled. Continue beta isidra. Not on anticoagulation due to pancytopenia and thrombocytopenia. (6) Pancytopenia Current Visit: Yes Status: Acute Assessment and plan: Plan for bone marrow biopsy. Platelet counts at 75 today. Avoid anticoagulation (7) SVT (supraventricular tachycardia) Current Visit: Yes Status: Acute Assessment and plan: Heart rate is is well controlled. Continue beta isidra per cardiology recommendations. (8) Chronic respiratory failure Current Visit: Yes Status: Chronic Assessment and plan: Continue O2 supplementation. Qualifiers: Respiratory failure complication: hypoxia Qualified Code(s): J96.11 - Chronic respiratory failure with hypoxia (9) DVT prophylaxis Current Visit: Yes Status: Acute Assessment and plan: On SCDs alone due to anemia and thrombocytopenia - Subjective Interval history: Patient is awake and alert. Doing better today. Has been nothing by mouth for planned bone marrow biopsy planned for later today. Denies any new complaints at this time. No chest pain. No fever or chills. No palpitations. - Constitutional Vitals: Temp Pulse Resp BP Pulse Ox 97.7 F 101 17 117/72 97 01/09/18 07:40 01/09/18 07:40 01/09/18 07:40 01/09/18 07:40 01/09/18 07:40 General appearance: Present: cooperative, A&O X 3, pleasant, no acute distress, underweight, answers questions appropriately - Neck Neck exam general surgery: Present: supple, trachea midline. Absent: lymphadenopathy - Respiratory Respiratory exam: Present: CTAB. Absent: accessory muscle use, rales, rhonchi, wheezes - Cardiovascular Cardiovascular exam: Present: RRR, +S1, +S2. Absent: diastolic murmur, gallop, rubs, systolic murmur - GI/Abdominal GI/Abdominal exam: Present: normal bowel sounds, soft, no peritoneal signs. Absent: distended, tenderness - Extremities Exam Extremities exam: Present: warm, radial pulses palpable and symmetrical. Absent : calf tenderness, cyanotic, pedal edema Internal Medicine: Result - Labs CBC & Chem 7: 01/09/18 03:54 01/09/18 03:54 Labs: Short CBC 01/08/18 01/09/18 Range/Units 08:08 03:54 WBC 3.7 L (4.3-11.1) K/mcL Hgb 8.8 L (12.9-16.9) g/dL Hct 26.1 L (37.5-50.1) % Plt Count 75 L (140-400) K/mcL Neutrophils # 1.7 3.3 (1.6-8.9) K/mcL BMP 01/09/18 03:54 Sodium 136 Potassium 4.4 Chloride 109 H Carbon Dioxide 21 L BUN 18 Creatinine 0.69 L Glucose 148 H Calcium 8.7 Liver Function 01/09/18 Range/Units 03:54 Total Bilirubin 0.6 (0.3-1.0) mg/dL AST 12 L (13-39) Units/L ALT 13 (7-52) Units/L Alkaline Phosphatase 61 (34-104) Units/L Albumin 3.3 L (3.5-5.7) g/dL - ABG Interpretation ABG results: PT/INR, D-dimer PT 14.1 Seconds (9.4-12.1) H 01/08/18 08:08 Consult Discharge Plan - Plan Referrals: Lynne Kim MD [Primary Care Provider] -
[2018-01-09] MEDS ORDERED: *HR* FentaNYL (PF) 100 MCG/2 ML VIAL IVP ONE (10:37)
[2018-01-09] MEDS ORDERED: *HR* Midazolam HCl 2 MG/2 ML VIAL IVP ONE (10:37)
[2018-01-09] MEDS ORDERED: 0.9 % Sodium Chloride 500 ML ONE (12:33)
[2018-01-10 05:25] LABS: Mean Corpuscular Volume 98.5 fL (83.0-100.0); Red Cell Distribution Width 18.8 % (11.5-14.5)
[2018-01-10 05:27] LABS: Hematocrit 25.8 % (37.5-50.1); Hemoglobin 8.5 g/dL (12.9-16.9); Immature Platelets 1.9 % (1.1-6.1); Lymphocytes # 0.5 K/mcL (0.6-4.6); Mean Corpuscular HGB Conc 32.9 g/dL (31.6-35.5); Mean Corpuscular Hemoglobin 32.4 pg (28.0-33.3); Mean Platelet Volume 10.7 fL (9.4-12.4); Monocytes # 0.1 K/mcL (0.0-1.3); Nucleated Red Blood Cells 0.9 /100 WBC (0); Red Blood Count 2.62 M/mcL (4.19-5.50)
[2018-01-10 05:28] LABS: Platelet Count 52 K/mcL (140-400)
[2018-01-10 05:45] LABS: Alanine Aminotransferase 18 Units/L (7-52); Albumin 3.1 g/dL (3.5-5.7); Albumin/Globulin Ratio 0.9 (1.1-2.2); Alkaline Phosphatase 56 Units/L (34-104); Aspartate Amino Transferase 14 Units/L (13-39); BUN/Creatinine Ratio 37 (6-26); Bilirubin,Total 0.3 mg/dL (0.3-1.0); Blood Urea Nitrogen 29 mg/dL (8-23); Calcium 8.6 mg/dL (8.6-10.3); Carbon Dioxide 25 mEq/L (23-29); Chloride 110 mEq/L (98-107); Globulin 3.6 g/dL (2.4-3.5); Glucose 118 mg/dL (70-105); Osmolality,Calculated 297 (280-300); Potassium 4.1 mEq/L (3.5-5.1); Sodium 140 mEq/L (136-145); Total Protein 6.7 g/dL (6.4-8.9); eGFR For African Americans > 60 (> 60); eGFR For Non-African Americans > 60 (> 60)
[2018-01-10 06:04] LABS: Basophils # 0.1 K/mcL (0.0-0.2); Neutrophils # 3.8 K/mcL (1.6-8.9); Platelet Estimate Decreased (Normal)
[2018-01-10 06:05] LABS: Anisocytosis 1+ (Not Present); Macrocytosis Present (Not Present); Microcytosis Present (Not Present)
[2018-01-10] MEDS: predniSONE 20 MG TABLET PO SCH (10:36)
--- NOTE | 2018-01-10 10:43 | Discharge Summary ---
Orders not resulted at time of discharge: Pending orders 01/07/18 20:13 MMA (VIT B12 STATUS) Routine 01/08/18 09:40 Occult Blood,Stool [BF] Stat 01/08/18 15:29 Bone Marrow, Flow & Cytogen Routine Pathologist Review, Body Fluid [BF] Routine 01/09/18 CT guided biopsy [CT] Routine 01/09/18 03:54 Erythropoietin AM 0400 01/11/18 04:00 Complete Blood Count [HEME] AM 0400 Comprehensive Metabolic Panel AM 0400 01/12/18 04:00 Complete Blood Count [HEME] AM 0400 Comprehensive Metabolic Panel AM 0400 Date of Encounter: 01/10/18 Time of Encounter: 09:00 - Discharge Diagnosis (1) Pancytopenia Priority: Primary Status: Acute (2) Anemia Priority: Secondary Status: Chronic Qualifiers: Anemia type: unspecified type Qualified Code(s): D64.9 - Anemia, unspecified (3) COPD (chronic obstructive pulmonary disease) Priority: Secondary Status: Chronic Qualifiers: COPD type: unspecified COPD Qualified Code(s): J44.9 - Chronic obstructive pulmonary disease, unspecified (4) HTN (hypertension) Priority: Secondary Status: Chronic Qualifiers: Hypertension type: essential hypertension Qualified Code(s): I10 - Essential (primary) hypertension (5) Laryngeal cancer Priority: Secondary Status: Resolved (6) PAF (paroxysmal atrial fibrillation) Priority: Secondary Status: Acute (7) SVT (supraventricular tachycardia) Priority: Secondary Status: Acute (8) Chronic respiratory failure Priority: Secondary Status: Chronic Qualifiers: Respiratory failure complication: hypoxia Qualified Code(s): J96.11 - Chronic respiratory failure with hypoxia (9) DVT prophylaxis Priority: Secondary Status: Acute Hospital course: Mr. 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 He had pancytopenia on blood work done and so was hospitalized for further evaluation. Hematology was consulted and they recommended doing a bone marrow biopsy. Patient underwent this procedure yesterday. He did receive 1 unit of packed red blood cell transfusion and 2 units of packed platelets. His platelet counts have improved since the transfusion. Presently he is feeling much better. He was evaluated by physical therapy and was recommended home health. He will be discharged today and will follow up with hematology for further management regarding the bone marrow biopsy results. Was also diagnosed with mild acute COPD exacerbation and was treated with bronchodilators and steroids. He will complete a short course of steroid taper. Discharge discussed with: patient, family - Time Spent with Patient Total time spent providing and/or coordinating discharge services: Less than 30 minutes (25 min) - Discharge Medications Prescriptions: predniSONE [PredniSONE] 30 mg PO DAILY 6 Days tablet Home Medications: Simvastatin [Zocor] 40 mg PO HS 08/25/15 [History] Ipratropium/Albuterol Neb [Duoneb] 3 ml IH Q6HR PRN #120 inhsol 08/09/17 [Rx] Metoprolol [Lopressor] 25 mg PO BID 30 Days #60 tablet 08/09/17 [Rx] Acetaminophen [Tylenol] 500 mg PO BID 09/15/17 [History] Cholecalciferol (Vitamin D3) [Vitamin D3] 1,000 unit PO DAILY 10/11/17 [History] Sodium Chloride [Saline Nasal Mist] 126 ml NS QID PRN #1 bottle 12/08/17 [Rx] Oxygen 3 each .ROUTE AD 12/11/17 [History] Latanoprost [Xalatan] 1 drop OP AD 01/08/18 [History] predniSONE [PredniSONE] 30 mg PO DAILY 6 Days tablet 01/10/18 [Rx] Allergies/Adverse Reactions: 3 Allergy/AdvReac Type Severity Reaction Status Date / Time No Known Allergies Allergy Verified 12/11/17 15:00 Date of admission: 01/07/18 17:52 Primary care physician: Lynne Kim, Consults: 01/07/18 17:55 Consult to Pr Manager [CONS] Routine Reason for SW Consult: Please assess patient for possible home needs for post -discharge planning. 01/07/18 17:56 Consult to Occupational Therapy [CONS] Routine Comment: Evaluate, develop and implement POC Reason for Consult: Pt. is 87 yo male with pancytopenia, hx of cancer, is underweight, and experiencing generalized weakness, especially with ambulation. Please assess patient for ambulation strength, safety, stability, and possible home assistive needs for post-discharge planning. 01/07/18 17:58 Consult to Physical Therapy [CONS] Routine Comment: Evaluate, develop and implement POC Reason for Consult: Pt. is 87 yo male with pancytopenia, hx of cancer, is underweight, and experiencing generalized weakness, especially with ambulation. Please assess patient for ambulation strength, safety, stability, and possible home assistive needs for post-discharge planning. 01/07/18 17:59 Consult to Nutrition [CONS] Routine Comment: Pt. prefers CHOCOLATE BOOST Consulting Provider: NUTRITION Reason for Dietary Consult: PO Supplementation 01/07/18 18:29 Consult to Cardiology [CONS] Routine Comment: Consulting Provider: Cardiology Sveta Reason for Consult: Patient is 87 yo male w/hx of HLD and HTN, lung cancer, and is current everyday smoker of 1/2-1 PPD being admitted for palpitations and SVTs while at [facility]. Pt was given adenosine and transferred to [facility]. Found to have pancytopenia w/plates of 7K. Pt. also has chronic anemia. Trop -. No CP. Echo in 08/06 shows LVEF 65% with normal LV chamber size, wall thickness, and function. Indeterminate diastolic function, normal right ventricular structure and function, mild mitral regurgitation, moderate tricuspid regurgitation, severe pulmonary hypertension, and estimated RVSP 59 mmHg. Call Completed: Yes Consult to Oncology Hematology [CONS] Routine Consulting Provider: Grant Barrow Reason for Consult: Patient has hx of chronic anemia as well as previous lung cancer dx and is being admitted for generalized weakness. Labs show pancytopenia w/ plates of 7K. Transfusing w/2 units of platelets. Call Completed: Yes 01/08/18 15:29 Consult to Interventional Radiology [CONS] Routine Consulting Provider: Radiology Interventional Cols Reason for Consult: bone marrow aspiration biopsy, FISH, cytogenetics, pathology review (orders should be in) Call Completed: Yes Discharging clinician: Ciara Nava Anticipated date of discharge: 01/10/18 - Constitutional Vitals: Temp Pulse Resp BP Pulse Ox 98.2 F 86 17 123/68 99 01/10/18 06:28 01/10/18 06:28 01/10/18 06:28 01/10/18 06:28 01/10/18 06:28 General appearance: Present: cooperative, A&O X 3, pleasant, no acute distress, underweight, answers questions appropriately - Neck Neck exam general surgery: Present: supple, trachea midline. Absent: lymphadenopathy - Respiratory Respiratory exam: Present: prolonged expiratory phase. Absent: accessory muscle use, rales, rhonchi, wheezes - Cardiovascular Cardiovascular exam: Present: RRR, +S1, +S2. Absent: diastolic murmur, gallop, rubs, systolic murmur - GI/Abdominal GI/Abdominal exam: Present: normal bowel sounds, soft, no peritoneal signs. Absent: distended, tenderness - Patient Status Disposition: Home, Self-Care Condition: Good Functional capacity at discharge: independent ambulation Overall status at discharge: patient is progressing back to baseline - Discharge Instructions Instructions: Prednisone (By mouth), Chronic Obstructive Pulmonary Disease (DC) , Anemia (GEN) Follow Up With: Lynne Kim MD [Primary Care Provider] - 01/12/18 11:00 am (Please follow as schedule...) Kamila Mills MD [Partnered Physician] - (in 1-2 weeks ) - Diet and Activity Activity: increase activity as tolerated Diet: low fat, low cholesterol, low salt diet
[2018-01-10 10:48] VITALS: BP 118/53
--- NOTE | 2018-01-10 11:26 | Physician Discharge Referral ---
Home Health/Hosp Referral Info Transfer to: Home Health Provider in Charge Post Discharge: PCP - Diagnosis (1) Pancytopenia Priority: Primary Status: Acute (2) Anemia Priority: Secondary Status: Chronic (3) COPD (chronic obstructive pulmonary disease) Priority: Secondary Status: Chronic (4) HTN (hypertension) Priority: Secondary Status: Chronic (5) Laryngeal cancer Priority: Secondary Status: Resolved (6) PAF (paroxysmal atrial fibrillation) Priority: Secondary Status: Acute (7) SVT (supraventricular tachycardia) Priority: Secondary Status: Acute (8) Chronic respiratory failure Priority: Secondary Status: Chronic (9) DVT prophylaxis Priority: Secondary Status: Acute - Respiratory Orders Smoking Cessation: Smoking cessation has been advised. For more information, call the [place] Tobacco Quit Line at 5-025-AWRI-NOW. - Diet/Nutrition Diet/Nutrition Orders: Cardiac - Activity Activity Orders: Walker - Services Needed Following services are medically necessary services: Nursing, Physical Therapy, Occupational Therapy - Transfer Medications Prescriptions: predniSONE [PredniSONE] 30 mg PO DAILY 6 Days tablet Home Medications: Simvastatin [Zocor] 40 mg PO HS 08/25/15 [History] Ipratropium/Albuterol Neb [Duoneb] 3 ml IH Q6HR PRN #120 inhsol 08/09/17 [Rx] Metoprolol [Lopressor] 25 mg PO BID 30 Days #60 tablet 08/09/17 [Rx] Acetaminophen [Tylenol] 500 mg PO BID 09/15/17 [History] Cholecalciferol (Vitamin D3) [Vitamin D3] 1,000 unit PO DAILY 10/11/17 [History] Sodium Chloride [Saline Nasal Mist] 126 ml NS QID PRN #1 bottle 12/08/17 [Rx] Oxygen 3 each .ROUTE AD 12/11/17 [History] Latanoprost [Xalatan] 1 drop OP AD 01/08/18 [History] predniSONE [PredniSONE] 30 mg PO DAILY 6 Days tablet 01/10/18 [Rx] Allergies/Adverse Reactions: 3 Allergy/AdvReac Type Severity Reaction Status Date / Time No Known Allergies Allergy Verified 12/11/17 15:00 Certification: Further, I certify that my clinical findings support that this patient is homebound (i.e. absences from home require considerable and taxing effort and are for medical reasons or hindu services or infrequently or short duration when for other reasons) because: Homebound Reason: Patient requires assistance of a person or device to safely leave home Attestation: My signature below is to certify that this patient is under my care and that I, or nurse practitioner, or a physician's hr administrative assistant working with me, has a face-to -face encounter with this patient.
== END 2018-01-10 11:25 | disposition home or self-care (01) | DRG 809 ==
LOC: 2ANU → SUATTDRO 17:52
PROVIDERS: ADMIT Internal Medicine; ATTEND Internal Medicine

== ENCOUNTER 2018-01-15 17:26 | Inpatient (IN) ==
[2018-01-15] MEDS ORDERED: Ipratropium/Albuterol Neb 3 ML IH PRN (20:37)
[2018-01-15] MEDS ORDERED: methylPREDNISolone 125 MG/2 ML VIAL IVP ONE (21:10)
[2018-01-15] MEDS ORDERED: Benzonatate 100 MG CAPSULE PO PRN (21:12)
--- NOTE | 2018-01-15 21:20 | Internal Med History&Physical ---
Date of Encounter: 01/15/18 Time of Encounter: 20:30 Assessment and Plan (1) HCAP (healthcare-associated pneumonia) Current visit: Yes Status: Acute Add Vanc and Zosyn to Levaquin Blood Cultures done in ED IVF resuscitation Albuterol Nebs Spiriva Symbicort Repeat Lactic acid (2) COPD exacerbation Current visit: No Status: Acute COPD with home O2 Finished Prednisone shwetha yesterday Albuterol Nebs Add SoluMedrol Add Symbicort Add Tessalon and Muccinex (3) PAF (paroxysmal atrial fibrillation) Current visit: No Status: Acute Continue Metoprolol Almost rate controlle (100-105 range ) now No a/c due to severe thrombocytopenia (4) Hypotension Current visit: No Status: Acute Resolving with gentle hydration Qualifiers: Hypotension type: unspecified hypotension type Qualified Code(s): I95.9 - Hypotension, unspecified (5) HTN (hypertension) Current visit: No Status: Chronic Hold all anti-HTN medications Qualifiers: Hypertension type: essential hypertension Qualified Code(s): I10 - Essential (primary) hypertension Internal Medicine - H&P: HPI Chief complaint: sob, palpitations Admitted From: Emergency Dept Plans for Post Hospital Care: Home History of present illness: 87 year old male patient transferred from [place] ER c/o SOB, fever, dyspnea , and palpitatons. He had Afib, fever, dyspnea and mild hypotension. He was given Levaquin for LLL PNA noted CXR and exam. He was gentle hydrated because of sepsis criteria and hypotension. 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 His Platelet count is 21K but no signs of bleeding. His Lactic acid is elevated at 2.7. Past Med Surg Social Fam HX - Past Medical History Medical history: cancer, COPD, GERD, hyperlipidemia, osteoporosis, other Psychiatric history: no psych history - Past Surgical History Surgical History: orthopedic, other, other - Social History Smoking Status: Current every day smoker Packs per day: 0.5 Smokeless Tobacco Status: No (PT HAS SMOKED X70 YEARS) Alcohol use: none Drug use: none - Family History Father Family Member Ethnicity: Non- Living Status: Age at : 69 Cause of : Respiratory failure Hx Family Respiratory Disorders: Yes (COPD) Mother Family Member Ethnicity: Non- Living Status: Age at : 99 Cause of : unknown Brother Family Member Ethnicity: Non- Living Status: Cause of : Cardiac related Hx Family Cardiac Disorders: Yes Sister Family Member Ethnicity: Non- Living Status: Age at : 80 Cause of : Cancer Hx Family Cancer: Yes Internal Medicine - H&P: Meds Simvastatin [Zocor] 40 mg PO HS 08/25/15 [History] Ipratropium/Albuterol Neb [Duoneb] 3 ml IH Q6HR PRN #120 inhsol 08/09/17 [Rx] Metoprolol [Lopressor] 25 mg PO BID 30 Days #60 tablet 08/09/17 [Rx] Acetaminophen [Tylenol] 500 mg PO BID 09/15/17 [History] Cholecalciferol (Vitamin D3) [Vitamin D3] 1,000 unit PO DAILY 10/11/17 [History] Oxygen 3 each .ROUTE AD 12/11/17 [History] Latanoprost [Xalatan] 1 drop OP HS 01/08/18 [History] 3 Allergy/AdvReac Type Severity Reaction Status Date / Time No Known Allergies Allergy Verified 12/11/17 15:00 All Systems PM: A 10-system review of systems was performed and is negative for pertinent findings except as documented above in the HPI. - Constitutional Constitutional: anorexia, chills, weight loss, no excessive sweating, no falls, no lethargy - EENT Eyes: no diplopia, no discharge, no floaters, no loss of vision Nose, mouth and throat: no change in voice, no dental pain, no dysphagia, no epistaxis, no nasal congestion, no nasal obstruction, no post-nasal drip, no throat swelling - Cardiovascular Cardiovascular ROS IM: dyspnea, no claudication, no diaphoresis, no orthopnea, no paroxysmal nocturnal dyspnea - Respiratory Respiratory: cough, dyspnea, no hemoptysis, no dyspnea on exertion, no wheezing - Gastrointestinal Gastrointestinal: no hematemesis, no hematochezia - Genitourinary Genitourinary ROS male: urinary frequency, no dysuria, no genital lesions, no nocturia - Neurological Neurological ROS: no abnormal hearing, no confusion, no disequilibrium, no frequent falls, no memory loss, no paresthesias, no restless legs, no tremor(s) , no vertigo - Psychiatric Psychiatric: no auditory hallucinations, no hallucinations, no hopelessness - Constitutional Vitals: Temp Pulse Resp BP Pulse Ox 97.6 F 95 17 102/52 96 01/15/18 19:27 01/15/18 19:27 01/15/18 19:27 01/15/18 19:27 01/15/18 19:27 General appearance: Present: cachectic, mild distress, A&O X 3 - Head Head exam: Present: atraumatic, normocephalic - Eye Eye exam: Present: EOMI, PERRL, conjuntiva pink, sclera anicteric Pupils: Present: PERRL - Neck Neck exam general surgery: Present: supple, trachea midline. Absent: lymphadenopathy - Respiratory Respiratory exam: Present: rales, wheezes. Absent: accessory muscle use, respiratory distress, rhonchi - Cardiovascular Cardiovascular exam: Present: irregular rhythm, +S1, +S2, tachycardia. Absent: diastolic murmur, gallop, rubs, systolic murmur - GI/Abdominal GI/Abdominal exam: Present: normal bowel sounds, soft, no peritoneal signs. Absent: bruit, distended, guarding, hernia, rebound, tenderness - Extremities Exam Extremities exam: Present: warm, radial pulses palpable and symmetrical. Absent : calf tenderness, cyanotic, pedal edema - Neurological Exam Neurological exam: Present: CN II-XII intact, oriented X3, no focal deficits. Absent: pronater drift, facial droop, speech deficit - Psychiatric Psychiatric exam: Present: normal affect, normal mood - Skin Skin exam: Present: dry, intact. Absent: cyanosis, petechiae
[2018-01-15 21:52] LABS: INR 1.7; Prothrombin Time 18.5 Seconds (9.4-12.1)
[2018-01-15 21:55] LABS: Activated Partial Thrombo Time 29.5 Seconds (26.0-36.0)
[2018-01-15 22:22] LABS: Bilirubin,Urine Negative (Negative); Blood,Urine Moderate (Negative); Clarity,Urine Clear (Clear); Color,Urine Yellow (Yellow); Glucose,Urine (UA) Normal (Normal); Ketones,Urine Negative (Negative); Leukocyte Esterase,Urine Negative (Negative); Nitrite,Urine Negative (Negative); Protein,Urine Negative (Neg-Trace); Specific Gravity,Urine 1.016 (1.010-1.025); Urobilinogen,Urine Normal (Normal)
[2018-01-15 22:25] LABS: Bacteria,Urine None Seen per hpf (None-Few); Hyaline Casts,Urine None Seen per lpf (None-Few); RBC,Urine 30-50 per hpf (0-3); Squamous Epithelial Cell,Urine Many per lpf (None-Few); WBC,Urine 0-3 per hpf (0-3)
[2018-01-15] MEDS: 0.9 % Sodium Chloride 1,000 ML IVC SCH (22:41)
[2018-01-15] MEDS: Latanoprost 2.5 ML BOTTLE BOTH EYES SCH (22:45)
[2018-01-15] MEDS: Piperacillin/Tazobactam 3.375 GM in 0.9 % Sodium Chloride Mini Bag 100 ML IVPB SCH (23:57)
[2018-01-16] MEDS: methylPREDNISolone 125 MG/2 ML VIAL IVP SCH ×4 (03:15→18:11)
[2018-01-16 04:37] LABS: Hemoglobin 8.2 g/dL (12.9-16.9)
[2018-01-16 04:39] LABS: Immature Platelets 5.5 % (1.1-6.1); Mean Corpuscular HGB Conc 32.8 g/dL (31.6-35.5); Mean Corpuscular Hemoglobin 32.5 pg (28.0-33.3); Mean Corpuscular Volume 99.2 fL (83.0-100.0); Mean Platelet Volume 13.3 fL (9.4-12.4); Red Blood Count 2.52 M/mcL (4.19-5.50); Red Cell Distribution Width 19.6 % (11.5-14.5)
[2018-01-16 05:15] LABS: BUN/Creatinine Ratio 22 (6-26); Blood Urea Nitrogen 17 mg/dL (8-23); Calcium 8.2 mg/dL (8.6-10.3); Carbon Dioxide 23 mEq/L (23-29); Chloride 108 mEq/L (98-107); Glucose 119 mg/dL (70-105); Osmolality,Calculated 289 (280-300); Potassium 3.8 mEq/L (3.5-5.1); Sodium 138 mEq/L (136-145); eGFR For African Americans > 60 (> 60); eGFR For Non-African Americans > 60 (> 60)
[2018-01-16] MEDS: Budesonide/Formoterol 160/4.5 MDI IH SCH ×3 (05:16→20:38)
[2018-01-16] MEDS ORDERED: 0.9 % Sodium Chloride 500 ML ONE (05:54)
[2018-01-16] MEDS ORDERED: Famotidine 20 MG TABLET PO SCH (07:30)
[2018-01-16] MEDS: Tiotropium 18 MCG inhalation IH SCH (08:09)
[2018-01-16] MEDS: Piperacillin/Tazobactam 3.375 GM in 0.9 % Sodium Chloride Mini Bag 100 ML IVPB SCH ×2 (09:10→16:25)
[2018-01-16] MEDS: Cholecalciferol (D-3) 1,000 UNIT TABLET PO SCH (09:12)
[2018-01-16] MEDS ORDERED: Lidocaine Jelly 6ml 1 APPL/6 ML JEL.PF.APP TP ONE (15:36)
[2018-01-16] MEDS: 0.9 % Sodium Chloride 1,000 ML IVC SCH (16:24)
--- NOTE | 2018-01-16 17:34 | Internal Med Progress Note ---
Date of Encounter: 01/16/18 Time of Encounter: 17:32 - Assessment and plan (1) HCAP (healthcare-associated pneumonia) Current Visit: Yes Status: Acute Assessment and plan: Continue vancomycin, Zosyn, Levaquin Blood cultures follow-up IVF gentle hydration Repeat lactic acid (2) COPD exacerbation Current Visit: No Status: Acute Assessment and plan: COPD with home O2 Finished Prednisone shwetha yesterday Albuterol Nebs Add SoluMedrol Add Symbicort Add Tessalon and Muccinex (3) Hypotension Current Visit: No Status: Acute Assessment and plan: Continue gentle IV fluid hydration Qualifiers: Hypotension type: unspecified hypotension type Qualified Code(s): I95.9 - Hypotension, unspecified (4) PAF (paroxysmal atrial fibrillation) Current Visit: No Status: Acute Assessment and plan: Continue Metoprolol Almost rate controlle (100-105 range ) now No a/c due to severe thrombocytopenia (5) HTN (hypertension) Current Visit: No Status: Chronic Assessment and plan: BP now in lower normal to normal limits. Hold off antihypertensive medications for now. Qualifiers: Hypertension type: essential hypertension Qualified Code(s): I10 - Essential (primary) hypertension (6) Pancytopenia Current Visit: No Status: Acute Assessment and plan: Consult Oncology, patient does have bone marrow biopsy that was recently done. (7) Cancer of left lung Current Visit: No Status: Chronic Assessment and plan: Consult Oncology Qualifiers: Lung location: unspecified part of lung Qualified Code(s): C34.92 - Malignant neoplasm of unspecified part of left bronchus or lung (8) Laryngeal cancer Current Visit: No Status: Resolved (9) DVT prophylaxis Current Visit: No Status: Acute - Subjective Interval history: No acute events overnight. - Constitutional Vitals: Temp Pulse Resp BP Pulse Ox 97.8 F 91 16 121/64 94 01/16/18 15:19 01/16/18 15:19 01/16/18 15:19 01/16/18 15:19 01/16/18 15:19 General appearance: Present: cachectic, mild distress, A&O X 3 Exam: - Head Head exam: Present: atraumatic, normocephalic - Eye Eye exam: Present: EOMI, PERRL, conjuntiva pink, sclera anicteric Pupils: Present: PERRL - Neck Neck exam general surgery: Present: supple, trachea midline. Absent: lymphadenopathy - Respiratory Respiratory exam: Present: rales, wheezes. Absent: accessory muscle use, respiratory distress, rhonchi - Cardiovascular Cardiovascular exam: Present: irregular rhythm, +S1, +S2, tachycardia. Absent: diastolic murmur, gallop, rubs, systolic murmur - GI/Abdominal GI/Abdominal exam: Present: normal bowel sounds, soft, no peritoneal signs. Absent: bruit, distended, guarding, hernia, rebound, tenderness - Extremities Exam Extremities exam: Present: warm, radial pulses palpable and symmetrical. Absent : calf tenderness, cyanotic, pedal edema - Neurological Exam Neurological exam: Present: CN II-XII intact, oriented X3, no focal deficits. Absent: pronater drift, facial droop, speech deficit - Psychiatric Psychiatric exam: Present: normal affect, normal mood - Skin Skin exam: Present: dry, intact. Absent: cyanosis, petechiae Internal Medicine: Result - Labs CBC & Chem 7: 01/16/18 04:27 01/16/18 04:27 Labs: Short CBC 01/16/18 Range/Units 04:27 WBC 3.1 L (4.3-11.1) K/mcL Hgb 8.2 L (12.9-16.9) g/dL Hct 25.0 L (37.5-50.1) % Plt Count 10 L* D (140-400) K/mcL BMP 01/16/18 04:27 Sodium 138 Potassium 3.8 Chloride 108 H Carbon Dioxide 23 BUN 17 Creatinine 0.78 Glucose 119 H Calcium 8.2 L Cardiac Enzymes 01/15/18 01/16/18 Range/Units 21:34 04:27 Troponin I < 0.03 < 0.03 (< 0.04) ng/mL Urine 01/15/18 Range/Units 22:10 Urine Color Yellow (Yellow) Urine Clarity Clear (Clear) Urine pH 7.0 (5.0-8.0) pH Units Ur Specific [place] 1.016 (1.010-1.025) Urine Protein Negative (Neg-Trace) mg/dL Urine Glucose (UA) Normal (Normal) mg/dL - ABG Interpretation ABG results: PT/INR, D-dimer PT 18.5 Seconds (9.4-12.1) H 01/15/18 21:34 - VTE Documentation of Mechanical Device: Intermittent pneumatic compression device Consult Discharge Plan - Plan Referrals: NONE,PCP [Primary Care Provider] -
[2018-01-16] MEDS: *HR* HYDROcodone/Acet 5/325 mg TABLET PO PRN (19:51)
[2018-01-16] MEDS: Latanoprost 2.5 ML BOTTLE BOTH EYES SCH (19:58)
[2018-01-17] MEDS: Piperacillin/Tazobactam 3.375 GM in 0.9 % Sodium Chloride Mini Bag 100 ML IVPB SCH ×3 (01:54→21:37)
[2018-01-17] MEDS: *HR* HYDROcodone/Acet 5/325 mg TABLET PO PRN (01:55)
[2018-01-17] MEDS: methylPREDNISolone 125 MG/2 ML VIAL IVP SCH (01:56)
[2018-01-17 06:02] LABS: Basophils % 0.4 %; Eosinophils % 0.2 %; Hemoglobin 7.7 g/dL (12.9-16.9); Nucleated Red Blood Cells 0.4 /100 WBC (0); Red Cell Distribution Width 19.5 % (11.5-14.5)
[2018-01-17 06:04] LABS: Hematocrit 23.4 % (37.5-50.1); Immature Platelets 3.2 % (1.1-6.1); Lymphocytes # 0.2 K/mcL (0.6-4.6); Lymphocytes % 3.7 %; Mean Corpuscular HGB Conc 32.9 g/dL (31.6-35.5); Mean Corpuscular Hemoglobin 32.5 pg (28.0-33.3); Mean Corpuscular Volume 98.7 fL (83.0-100.0); Mean Platelet Volume 11.7 fL (9.4-12.4); Monocytes # 0.1 K/mcL (0.0-1.3); Monocytes % 1.8 %; Red Blood Count 2.37 M/mcL (4.19-5.50); Segmented Neutrophils % 86.9 %
[2018-01-17 06:15] LABS: BUN/Creatinine Ratio 40 (6-26); Blood Urea Nitrogen 26 mg/dL (8-23); Calcium 8.3 mg/dL (8.6-10.3); Carbon Dioxide 23 mEq/L (23-29); Chloride 110 mEq/L (98-107); Glucose 150 mg/dL (70-105); Osmolality,Calculated 294 (280-300); Potassium 3.4 mEq/L (3.5-5.1); Sodium 138 mEq/L (136-145); eGFR For African Americans > 60 (> 60); eGFR For Non-African Americans > 60 (> 60)
[2018-01-17 06:19] LABS: Neutrophils # 4.3 K/mcL (1.6-8.9)
[2018-01-17 06:21] LABS: Platelet Count 25 K/mcL (140-400)
[2018-01-17 06:50] LABS: Anisocytosis 1+ (Not Present); Platelet Estimate Marked Decrease (Normal); Toxic Granulation Present (Not Present)
[2018-01-17] MEDS: Famotidine 20 MG TABLET PO SCH (08:33)
[2018-01-17] MEDS: Cholecalciferol (D-3) 1,000 UNIT TABLET PO SCH (08:33)
[2018-01-17] MEDS: 0.9 % Sodium Chloride 1,000 ML IVC SCH (08:34)
[2018-01-17] MEDS: Budesonide/Formoterol 160/4.5 MDI IH SCH ×2 (08:52→21:33)
[2018-01-17] MEDS: Tiotropium 18 MCG inhalation IH SCH (08:52)
[2018-01-17] MEDS ORDERED: Nicotine 2 MG GUM BC PRN (14:58)
--- NOTE | 2018-01-17 15:53 | Oncology Inp Consult Note ---
Date of Encounter: 01/17/18 Time of Encounter: 12:00 Assessment and Plan (1) Acute myeloid leukemia Status: Acute Assessment and plan: 87-year-old male with a new diagnosis of acute myeloid leukemia, thrombocytopenia and anemia requiring transfusion support, history of COPD, prior history of lung cancer, admitted with shortness of breath status post transfusion, antibiotics for bilateral pneumonia. Reviewed the bone marrow aspiration biopsy results with patient, and daughter bedside. Prognosis of acute leukemia, possibly therapy related with and without treatment reviewed with him in detail. Per pathology patient has complex karyotype, which would imply poor prognosis. We will obtain molecular studies, and bone marrow/peripheral blood for IDH1, IDH2 and FLT3 mutations, discussed hypomethylating agent treatment with him vs hospice. He has not decided on either of these options. He wants to receive tranfusion blood products, antibiotics for infection and return home with HHservices. He declines to palliative care consultation. Transfuse to keep Plt>10k, PRBCs to keep Hgb 7-8g. ANC s nl. He does not want intubation in case of cardiac arrest/DNI, DNR. Plan of care as above reviewed with patient, daughter and . Qualifiers: Leukemia Active/Remission status: without remission Qualified Code(s): C92.00 - Acute myeloblastic leukemia, not having achieved remission - Data of Consult Requesting Physician: Yeyo Ortiz MD Primary Care Provider: PCP NONE - Consult Narrative Reason for consult: AML, hx head and neck, lung cancers History of present illness: Mr. 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 The patient had initial PET uptake positive in the precarinal/subcarinal lymph nodes as well as in the mediastinum, likely two separate primaries. S/P carbo/taxol q wkly doses, RT to mediastinum through April/2014 with disease in remission was noted to have in lab works from 09/13/17 declined plt, macocytosis. B12, folate, SPEP normal. LDH normal. Reactive lymphs PS. On CBCD steadily declined plt. Pt has bleeding nostrils on and off. He was initially not agreeable to BM bx. A biopsy was obtained during his in patient stay 01/07 showed acute leukemia, with myeloid blasts in BM--24% in aspirate and flow showed 30% blasts. He is hospitalized for fatigue, SOB, Rx of pneumonia. He is cytopenic with plt ~10-20 needing plt and PRBCs. He edson not decided about treatment for AML. He is seen today to discuss bx results, prognosis in detail and plan further care. He is SOB and has some distress due to Joshi catheter insertion. Cough congestion on IV abx. Received plt Transfusion yesterday. Wants to go home. Past Med Surg Social Fam HX - Past Medical History Medical history: cancer, COPD, GERD, hyperlipidemia, osteoporosis, other Psychiatric history: no psych history - Past Surgical History Surgical History: orthopedic, other, other - Social History Smoking Status: Current every day smoker Packs per day: 0.5 Smokeless Tobacco Status: No (PT HAS SMOKED X70 YEARS) Alcohol use: none Drug use: none - Family History Father Family Member Ethnicity: Non- Living Status: Age at : 69 Cause of : Respiratory failure Hx Family Respiratory Disorders: Yes (COPD) Mother Family Member Ethnicity: Non- Living Status: Age at : 99 Cause of : unknown Brother Family Member Ethnicity: Non- Living Status: Cause of : Cardiac related Hx Family Cardiac Disorders: Yes Sister Family Member Ethnicity: Non- Living Status: Age at : 80 Cause of : Cancer Hx Family Cancer: Yes Medications and Allergies Simvastatin [Zocor] 40 mg PO HS 08/25/15 [History] Ipratropium/Albuterol Neb [Duoneb] 3 ml IH Q6HR PRN #120 inhsol 08/09/17 [Rx] Metoprolol [Lopressor] 25 mg PO BID 30 Days #60 tablet 08/09/17 [Rx] Acetaminophen [Tylenol] 500 mg PO BID 09/15/17 [History] Cholecalciferol (Vitamin D3) [Vitamin D3] 1,000 unit PO DAILY 10/11/17 [History] Oxygen 3 each .ROUTE AD 12/11/17 [History] Latanoprost [Xalatan] 1 drop OP HS 01/08/18 [History] Ipratropium [place] 1 spr NS AD 01/16/18 [History] 3 Allergy/AdvReac Type Severity Reaction Status Date / Time No Known Allergies Allergy Verified 12/11/17 15:00 Constitutional: Present: weakness Cardiovascular: Present: dyspnea Respiratory: Present: dyspnea Gastrointestinal: Present: as per HPI Musculoskeletal: Present: as per HPI Neurological: Present: as per HPI Psychiatric: Present: as per HPI Hematologic/Lymphatic: Present: as per HPI Oncology - Exam - Constitutional Vitals: Temp Pulse Resp BP Pulse Ox 97.6 F 98 18 127/69 90 01/17/18 15:44 01/17/18 15:44 01/17/18 15:44 01/17/18 15:44 01/17/18 15:44 General appearance: mild distress - Head Head exam: Present: atraumatic, normal inspection - Eye Eye exam: Present: conjunctival injection - ENT ENT exam: Present: mucous membranes dry - Neck Neck exam: Present: full ROM - Respiratory Respiratory exam: Present: CTAB - Cardiovascular Cardiovascular exam: Present: +S1, +S2 - GI/Abdominal GI/Abdominal exam: Present: normal bowel sounds, soft - Additional comments: Joshi catheter clear urine min debris - Extremities Exam Extremities exam: Present: normal inspection - Neurological Exam Neurological exam: Present: alert, CN II-XII intact, oriented X3 - Psychiatric Psychiatric exam: Present: normal mood Oncology - Results Labs: Short CBC 01/17/18 Range/Units 05:44 WBC 4.9 D (4.3-11.1) K/mcL Hgb 7.7 L (12.9-16.9) g/dL Hct 23.4 L (37.5-50.1) % Plt Count 25 L* D (140-400) K/mcL Neutrophils # 4.3 (1.6-8.9) K/mcL BMP 01/17/18 05:44 Sodium 138 Potassium 3.4 L Chloride 110 H Carbon Dioxide 23 BUN 26 H Creatinine 0.65 L Glucose 150 H Calcium 8.3 L Consult Discharge Plan - Plan Referrals: NONE,PCP [Primary Care Provider] -
[2018-01-17] MEDS ORDERED: Levofloxacin 750 MG/150 ML 750 MG/150 ML BAG IVPB SCH (16:00)
--- NOTE | 2018-01-17 16:18 | Internal Med Progress Note ---
Date of Encounter: 01/17/18 Time of Encounter: 16:11 - Assessment and plan (1) HCAP (healthcare-associated pneumonia) Current Visit: Yes Status: Acute Assessment and plan: Continue vancomycin, Zosyn, Levaquin Blood cultures follow-up Stop IVF Remove cruz cath Up in chair PT/OT possible discharge tomorrow pending PT/OT disposition recommendations (2) COPD exacerbation Current Visit: No Status: Acute Assessment and plan: COPD with home O2 Finished Prednisone taper Albuterol Nebs Taper SoluMedrol Continue Symbicort (3) Hypotension Current Visit: No Status: Acute Assessment and plan: Normotensive, stop IVF and monitor Qualifiers: Hypotension type: unspecified hypotension type Qualified Code(s): I95.9 - Hypotension, unspecified (4) PAF (paroxysmal atrial fibrillation) Current Visit: No Status: Acute Assessment and plan: Continue Metoprolol No a/c due to severe thrombocytopenia (5) HTN (hypertension) Current Visit: No Status: Chronic Assessment and plan: BP now in lower normal to normal limits. Hold off antihypertensive medications for now. Qualifiers: Hypertension type: essential hypertension Qualified Code(s): I10 - Essential (primary) hypertension (6) Pancytopenia Current Visit: No Status: Acute Assessment and plan: Oncology consulted, recommendations reviewed Transfuse to keep platelets >10k Transfuse PRBC to keep hemoglobin between 7-8 g. (7) Cancer of left lung Current Visit: No Status: Chronic Assessment and plan: Oncology following, recommendations appreciated. Qualifiers: Lung location: unspecified part of lung Qualified Code(s): C34.92 - Malignant neoplasm of unspecified part of left bronchus or lung (8) Laryngeal cancer Current Visit: No Status: Resolved (9) DVT prophylaxis Current Visit: No Status: Acute - Subjective Interval history: No acute events overnight. Cruz causing some irritation - Constitutional Vitals: Temp Pulse Resp BP Pulse Ox 97.6 F 98 18 127/69 90 01/17/18 15:44 01/17/18 15:44 01/17/18 15:44 01/17/18 15:44 01/17/18 15:44 General appearance: Present: cachectic, mild distress, A&O X 3 - Head Head exam: Present: atraumatic, normocephalic - Eye Eye exam: Present: PERRL, conjuntiva pink, sclera anicteric Pupils: Present: PERRL - Neck Neck exam general surgery: Present: supple, trachea midline. Absent: lymphadenopathy - Respiratory Respiratory exam: Present: decreased breath sounds, rales. Absent: accessory muscle use, rhonchi, wheezes - Cardiovascular Cardiovascular exam: Present: RRR, +S1, +S2. Absent: diastolic murmur, gallop, rubs, systolic murmur - GI/Abdominal GI/Abdominal exam: Present: normal bowel sounds, soft, no peritoneal signs. Absent: distended, tenderness - Extremities Exam Extremities exam: Present: warm, radial pulses palpable and symmetrical. Absent : calf tenderness, cyanotic, pedal edema - Neurological Exam Neurological exam: Present: CN II-XII intact, oriented X3, no focal deficits. Absent: pronater drift, facial droop, speech deficit - Skin Skin exam: Present: dry, intact Internal Medicine: Result - Labs CBC & Chem 7: 01/17/18 05:44 01/17/18 05:44 Labs: Short CBC 01/17/18 Range/Units 05:44 WBC 4.9 D (4.3-11.1) K/mcL Hgb 7.7 L (12.9-16.9) g/dL Hct 23.4 L (37.5-50.1) % Plt Count 25 L* D (140-400) K/mcL Neutrophils # 4.3 (1.6-8.9) K/mcL BMP 01/17/18 05:44 Sodium 138 Potassium 3.4 L Chloride 110 H Carbon Dioxide 23 BUN 26 H Creatinine 0.65 L Glucose 150 H Calcium 8.3 L - ABG Interpretation ABG results: PT/INR, D-dimer PT 18.5 Seconds (9.4-12.1) H 01/15/18 21:34 - VTE Documentation of Mechanical Device: Intermittent pneumatic compression device Consult Discharge Plan - Plan Referrals: NONE,PCP [Primary Care Provider] -
[2018-01-17] MEDS: Melatonin 3 MG TABLET PO PRN (21:36)
[2018-01-17] MEDS: Latanoprost 2.5 ML BOTTLE BOTH EYES SCH (21:54)
[2018-01-18] MEDS: Piperacillin/Tazobactam 3.375 GM in 0.9 % Sodium Chloride Mini Bag 100 ML IVPB SCH ×4 (01:38→21:29)
[2018-01-18 05:49] LABS: Hemoglobin 7.3 g/dL (12.9-16.9); Mean Corpuscular Hemoglobin 32.6 pg (28.0-33.3); Red Blood Count 2.24 M/mcL (4.19-5.50)
[2018-01-18 05:52] LABS: Hematocrit 22.7 % (37.5-50.1); Immature Platelets 5.6 % (1.1-6.1); Mean Corpuscular HGB Conc 32.2 g/dL (31.6-35.5); Mean Corpuscular Volume 101.3 fL (83.0-100.0); Nucleated Red Blood Cells 0.4 /100 WBC (0); Red Cell Distribution Width 20.2 % (11.5-14.5)
[2018-01-18 05:54] LABS: Platelet Count 15 K/mcL (140-400)
[2018-01-18 06:09] LABS: BUN/Creatinine Ratio 49 (6-26); Blood Urea Nitrogen 36 mg/dL (8-23); Calcium 8.5 mg/dL (8.6-10.3); Carbon Dioxide 26 mEq/L (23-29); Chloride 110 mEq/L (98-107); Glucose 143 mg/dL (70-105); Osmolality,Calculated 305 (280-300); Potassium 3.9 mEq/L (3.5-5.1); Sodium 142 mEq/L (136-145); eGFR For African Americans > 60 (> 60); eGFR For Non-African Americans > 60 (> 60)
[2018-01-18 06:16] LABS: Anisocytosis 1+ (Not Present); Lymphocytes # 0.4 K/mcL (0.6-4.6); Neutrophils # 4.6 K/mcL (1.6-8.9); Platelet Estimate Decreased (Normal)
[2018-01-18] MEDS: Cholecalciferol (D-3) 1,000 UNIT TABLET PO SCH (08:51)
[2018-01-18] MEDS: Famotidine 20 MG TABLET PO SCH (08:51)
[2018-01-18] MEDS: Tiotropium 18 MCG inhalation IH SCH (10:16)
[2018-01-18] MEDS: Budesonide/Formoterol 160/4.5 MDI IH SCH ×2 (10:17→22:36)
--- NOTE | 2018-01-18 12:11 | Internal Med Progress Note ---
Date of Encounter: 01/18/18 Time of Encounter: 17:49 - Assessment and plan (1) Acute and chronic respiratory failure Current Visit: Yes Status: Acute Assessment and plan: Patient with HCAP, COPD exacerbation. 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 Has dyspnea with minimal exertion today - Willing to do bipap, will try today and monitor - Continue aersolol therapy - Xopenex - Vancomycin, Levaquin, Zosyn - Solu- Medrol Overall patient prognosis is poor. at bedside, they are willing to have consultation with Palliative service to discuss goals of care. Currently he is DNR, DNI Qualifiers: Respiratory failure complication: hypoxia Qualified Code(s): J96.21 - Acute and chronic respiratory failure with hypoxia (2) HCAP (healthcare-associated pneumonia) Current Visit: Yes Status: Acute Assessment and plan: Continue vancomycin, Zosyn, Levaquin Blood cultures follow-up (3) COPD exacerbation Current Visit: No Status: Acute Assessment and plan: COPD with home O2 Finished Prednisone taper Albuterol Nebs Taper SoluMedrol Continue Symbicort (4) PAF (paroxysmal atrial fibrillation) Current Visit: No Status: Acute Assessment and plan: Continue Metoprolol No a/c due to severe thrombocytopenia (5) HTN (hypertension) Current Visit: No Status: Chronic Assessment and plan: BP now in lower normal to normal limits. Hold off antihypertensive medications for now. Qualifiers: Hypertension type: essential hypertension Qualified Code(s): I10 - Essential (primary) hypertension (6) Pancytopenia Current Visit: No Status: Acute Assessment and plan: Oncology consulted, recommendations reviewed Transfuse to keep platelets >10k Transfuse PRBC to keep hemoglobin between 7-8 g. (7) Acute myeloid leukemia Current Visit: Yes Status: Acute Assessment and plan: Patient with poor prognosis. He initially refused Palliative consultation, but patient at this point is willing to consult them and discuss goals of care. Qualifiers: Leukemia Active/Remission status: without remission Qualified Code(s): C92.00 - Acute myeloblastic leukemia, not having achieved remission (8) DVT prophylaxis Current Visit: No Status: Acute - Subjective Interval history: Throughout the day patient was short of breath, with minimal exertion. In afternoon patient HR jumped to 160s. EKG showed SVT. Patient did cough/vagal and HR improved to 100 bpm. Patient willing to try bipap right now. - Constitutional Vitals: Temp Pulse Resp BP Pulse Ox 97.8 F 94 20 116/70 94 01/18/18 11:58 01/18/18 11:58 01/18/18 11:58 01/18/18 11:58 01/18/18 11:58 General appearance: Present: cachectic, mild distress, A&O X 3 Exam: Lungs: Poor air exchange, + wheezing, course breath sounds throughout CVS: tachycardic Abd; nt/nd Ext: no edema Internal Medicine: Result - Labs CBC & Chem 7: 01/18/18 05:01 01/18/18 05:01 Labs: Short CBC 01/18/18 Range/Units 05:01 WBC 5.0 (4.3-11.1) K/mcL Hgb 7.3 L (12.9-16.9) g/dL Hct 22.7 L (37.5-50.1) % Plt Count 15 L* (140-400) K/mcL Neutrophils # 4.6 (1.6-8.9) K/mcL BMP 01/18/18 05:01 Sodium 142 Potassium 3.9 Chloride 110 H Carbon Dioxide 26 BUN 36 H Creatinine 0.74 Glucose 143 H Calcium 8.5 L - ABG Interpretation ABG results: PT/INR, D-dimer PT 18.5 Seconds (9.4-12.1) H 01/15/18 21:34 - VTE Documentation of Mechanical Device: Intermittent pneumatic compression device Consult Discharge Plan - Plan Referrals: NONE,PCP [Primary Care Provider] -
[2018-01-18] MEDS ORDERED: Levalbuterol Neb 1.25 MG/3 ML ONE (15:53)
[2018-01-18] MEDS ORDERED: methylPREDNISolone 125 MG/2 ML VIAL IVP SCH (16:30)
[2018-01-18] MEDS: MethylPREDNISolone 40 MG/ML VIAL IVP SCH (18:21)
[2018-01-18] MEDS: ALPRAZolam 0.25 MG TABLET PO PRN (21:28)
[2018-01-18] MEDS: Melatonin 3 MG TABLET PO PRN (21:28)
[2018-01-18] MEDS: Latanoprost 2.5 ML BOTTLE BOTH EYES SCH (21:29)
[2018-01-18] MEDS: Levalbuterol Neb 1.25 MG/3 ML IH SCH (22:36)
[2018-01-19] MEDS: Levalbuterol Neb 1.25 MG/3 ML IH SCH ×4 (04:23→21:19)
[2018-01-19] MEDS: MethylPREDNISolone 40 MG/ML VIAL IVP SCH ×2 (05:28→18:56)
[2018-01-19] MEDS: Piperacillin/Tazobactam 3.375 GM in 0.9 % Sodium Chloride Mini Bag 100 ML IVPB SCH ×3 (05:28→22:58)
[2018-01-19 05:50] LABS: Hemoglobin 7.1 g/dL (12.9-16.9); Nucleated Red Blood Cells 0.8 /100 WBC (0)
[2018-01-19 05:53] LABS: Hematocrit 21.9 % (37.5-50.1); Immature Platelets 6.8 % (1.1-6.1); Lymphocytes # 0.2 K/mcL (0.6-4.6); Mean Corpuscular HGB Conc 32.4 g/dL (31.6-35.5); Mean Corpuscular Hemoglobin 32.3 pg (28.0-33.3); Mean Corpuscular Volume 99.5 fL (83.0-100.0); Monocytes # 0.2 K/mcL (0.0-1.3); Red Cell Distribution Width 20.1 % (11.5-14.5)
[2018-01-19 05:58] LABS: Platelet Count 10 K/mcL (140-400)
[2018-01-19 06:13] LABS: BUN/Creatinine Ratio 52 (6-26); Blood Urea Nitrogen 34 mg/dL (8-23); Calcium 8.3 mg/dL (8.6-10.3); Carbon Dioxide 25 mEq/L (23-29); Chloride 106 mEq/L (98-107); Glucose 152 mg/dL (70-105); Osmolality,Calculated 299 (280-300); Potassium 3.9 mEq/L (3.5-5.1); Sodium 139 mEq/L (136-145); eGFR For African Americans > 60 (> 60); eGFR For Non-African Americans > 60 (> 60)
[2018-01-19 06:19] LABS: Neutrophils # 3.3 K/mcL (1.6-8.9)
[2018-01-19 06:20] LABS: Platelet Estimate Marked Decrease (Normal)
[2018-01-19 06:22] LABS: Anisocytosis 1+ (Not Present)
[2018-01-19] MEDS: Cholecalciferol (D-3) 1,000 UNIT TABLET PO SCH (08:45)
[2018-01-19] MEDS: ALPRAZolam 0.25 MG TABLET PO PRN ×2 (08:46→23:01)
[2018-01-19] MEDS ORDERED: 0.9 % Sodium Chloride 500 ML ONE ×2 (10:59→14:43)
[2018-01-19] MEDS: Tiotropium 18 MCG inhalation IH SCH (11:06)
[2018-01-19] MEDS: Budesonide/Formoterol 160/4.5 MDI IH SCH ×2 (11:06→21:19)
--- NOTE | 2018-01-19 12:57 | Palliative - Consult Note ---
Date of Encounter: 01/19/18 Time of Encounter: 12:50 - Assessment and Plan (1) Generalized pain Current Visit: Yes Status: Acute Assessment and plan: Has [place] PRN - has not utilized in the last couple of days. Monitor (2) Debility Current Visit: Yes Status: Acute Assessment and plan: Has been too unstable to participate in PT/OT (3) Counseling regarding advanced care planning and goals of care Current Visit: Yes Status: Acute Assessment and plan: 70min meeting with , 4 children regarding goals of care with myself, Washington Gonzalez, and Dr. Lawson did join us for part of meeting. Family updated on clinical status - discussed options of continuing current level of care vs. comfort care and hospice. Patient and family understand that pt too frail for chemotherapy, however, pt does not desire hospice care at this time, and wants to continue transfusions and IV antibiotic therapy. Washington Gonzalez discussed at length discharge options and rehab. Patient will maintain current course of care over the weekend and palliative will follow up on Monday. (4) Acute myeloid leukemia Current Visit: Yes Status: Acute Qualifiers: Leukemia Active/Remission status: without remission Qualified Code(s): C92.00 - Acute myeloblastic leukemia, not having achieved remission (5) HCAP (healthcare-associated pneumonia) Current Visit: Yes Status: Acute Palliative-CN HPI - Data of Consult Consult date: 01/19/18 Requesting Physician: Yeyo Ortiz MD Primary Care Provider: PCP NONE - Consult Narrative History of present illness: Mr. Smart is a 87 year old male who presented to [place] ER with shortness of breath and fever, and was transferred to [place]. He was diagnosed with pneumonia and has been treated with IV antibiotics. He has previous medical history of lung/laryngx ca in remission, COPD, A fib,pancytopenia, and has been seen by [facility]. He has transitioned to AML. Oncologist saw pt few days ago and discussed options. Upon my visit, he is in no acute distress - currently receiving platelet infusion. Denies and pain/dyspnea, c/o generalized weakness and poor appetite. Son is at bedside. CC: Yyeo Ortiz MD Past Med Surg Social Fam HX - Past Medical History Medical history: cancer, COPD, GERD, hyperlipidemia, osteoporosis, other Psychiatric history: no psych history - Past Surgical History Surgical History: orthopedic, other, other - Social History Smoking Status: Current every day smoker Packs per day: 0.5 Smokeless Tobacco Status: No (PT HAS SMOKED X70 YEARS) Alcohol use: none Drug use: none - Family History Father Family Member Ethnicity: Non- Living Status: Age at : 69 Cause of : Respiratory failure Hx Family Respiratory Disorders: Yes (COPD) Mother Family Member Ethnicity: Non- Living Status: Age at : 99 Cause of : unknown Brother Family Member Ethnicity: Non- Living Status: Cause of : Cardiac related Hx Family Cardiac Disorders: Yes Sister Family Member Ethnicity: Non- Living Status: Age at : 80 Cause of : Cancer Hx Family Cancer: Yes Medications and Allergies Simvastatin [Zocor] 40 mg PO HS 08/25/15 [History] Ipratropium/Albuterol Neb [Duoneb] 3 ml IH Q6HR PRN #120 inhsol 08/09/17 [Rx] Metoprolol [Lopressor] 25 mg PO BID 30 Days #60 tablet 08/09/17 [Rx] Acetaminophen [Tylenol] 500 mg PO BID 09/15/17 [History] Cholecalciferol (Vitamin D3) [Vitamin D3] 1,000 unit PO DAILY 10/11/17 [History] Oxygen 3 each .ROUTE AD 12/11/17 [History] Latanoprost [Xalatan] 1 drop OP HS 01/08/18 [History] Ipratropium [place] 1 spr NS AD 01/16/18 [History] 3 Allergy/AdvReac Type Severity Reaction Status Date / Time No Known Allergies Allergy Verified 12/11/17 15:00 All systems: reviewed and no additional remarkable complaints except as stated ( generalized weakness, poor appetite, shortness of breath) Palliative Care-Exam - Constitutional Vitals: Temp Pulse Resp BP Pulse Ox 97.7 F 91 16 113/57 96 01/19/18 11:28 01/19/18 11:28 01/19/18 11:28 01/19/18 11:28 01/19/18 11:28 General appearance: Present: mild distress, no acute distress - Head Head Exam: Present: normal inspection, normocephalic - Respiratory Respiratory exam: Present: decreased breath sounds, CTAB - Cardiovascular Cardiovascular exam: Present: +S1, +S2 - GI/Abdominal Exam GI/Abdominal exam: Present: normal bowel sounds, soft - Extremities Exam Extremities exam: Present: normal capillary refill, normal inspection - Neurological Exam Neurological exam: Present: alert, oriented X3, strengths equal and symetr throughout Additional comments: Generalized weakness - Skin Skin exam: Present: dry, pallor, warm Internal Medicine - CN: Reslt - Labs CBC & Chem 7: 01/19/18 05:24 01/19/18 05:24 Labs: Short CBC 01/19/18 Range/Units 05:24 WBC 3.7 L (4.3-11.1) K/mcL Hgb 7.1 L (12.9-16.9) g/dL Hct 21.9 L (37.5-50.1) % Plt Count 10 L* (140-400) K/mcL Neutrophils # 3.3 (1.6-8.9) K/mcL BMP 01/19/18 05:24 Sodium 139 Potassium 3.9 Chloride 106 Carbon Dioxide 25 BUN 34 H Creatinine 0.66 L Glucose 152 H Calcium 8.3 L - ABG Interpretation ABG results: PT/INR, D-dimer PT 18.5 Seconds (9.4-12.1) H 01/15/18 21:34 Consult Discharge Plan - Plan Referrals: NONE,PCP [Primary Care Provider] - Palliative Quality Palliative Quality: Screen for Code Status: Yes, Screen for Goals of Care: Yes, Screen for Pain: Yes, If Pain Regimen Started, Initiate Bowel Regimen: NA, Screen for Nausea/Vomitting: Yes Code Status: 01/18/18 17:58 CODE [Resuscitation Status: Active] [RES] Routine Comment: Resuscitation Status: [id number]
--- NOTE | 2018-01-19 16:15 | Oncology Inp Progress Note ---
Date of Encounter: 01/19/18 Time of Encounter: 16:15 (1) Acute myeloid leukemia Current Visit: Yes Status: Acute Assessment and plan: New diagnosis of acute myeloid leukemia, thrombocytopenia and anemia requiring transfusion support, history of COPD, prior history of lung cancer, admitted with shortness of breath status post transfusion, antibiotics for bilateral pneumonia. Prognosis of acute leukemia, possibly therapy related with and without treatment reviewed with him in detail. Per pathology patient has complex karyotype, which would imply poor prognosis. We will obtain molecular studies, and bone marrow/peripheral blood for IDH1, IDH2 and FLT3 mutations. Prior discussions with Dr. Jones regarding hypomethylating agent treatment with him vs hospice. He has not decided definitively on either of these options. While meeting with patient in room today he continues to go back and forth at times stating "I am tired of all this and want to go home" and at other times stating he wishes to pursue treatment. Discussed Hospice philosophy and that Hospice care would not include AML treatment or multiple trips for transfusion support, goal would be to keep him comfortable, spend time with family etc. At this time he seems to lean towards the idea to receive tranfusion blood products, antibiotics for infection and return home with HHservices, but states he wishes to have further discussion with family this weekend following the meeting taking place with palliative care at this time. At this time, patients condition is quite frail, he is weak and has been unable to get out of bed, he has needed bipap at times, he will need time to recover and rehab if he wishes to pursue this route, however, hospice appears like a very reasonable approach for this patient. Will continue to follow next week with decisions made following family meeting. Transfuse to keep Plt>10k, PRBCs to keep Hgb 7-8g. ANC s nl. He does not want intubation in case of cardiac arrest/DNI, DNR. Qualifiers: Leukemia Active/Remission status: without remission Qualified Code(s): C92.00 - Acute myeloblastic leukemia, not having achieved remission Oncology: Subj Interval history: Mr. Smart is resting in bed with his daughter in law at bedside. He denies pain. Reports he is fatigued and has poor appetite, reports generalized weakness. Family with palliative care in family meeting discussing goals of care at this time. - Constitutional Vitals: Vital Signs Temp Pulse Resp BP Pulse Ox 01/19/18 15:30 97.7 F 110 20 133/68 96 01/19/18 15:15 97.8 F 108 22 131/76 93 01/19/18 13:23 97.8 F 122 22 131/76 90 01/19/18 11:28 97.7 F 91 16 113/57 96 01/19/18 11:14 97.7 F 97 18 110/71 92 01/19/18 11:11 18 96 01/19/18 06:30 98 F 91 18 119/69 93 01/19/18 04:23 18 93 01/19/18 03:26 98.8 F 83 16 103/56 94 01/18/18 22:36 18 97 01/18/18 19:45 92 01/18/18 19:42 98.8 F 106 32 159/83 93 01/18/18 16:28 97.6 F 96 24 116/63 97 Intake and Output 01/19/18 01/19/18 01/19/18 07:59 15:59 23:59 Intake Total 100 / 100 1270 / 1270 Output Total 600 / 600 225 / 225 Balance -500 / -500 1045 / 1045 Intake: IV Fluids 100 / 100 100 / 100 Zosyn 3.375 GM In 0.9 % Sodium 100 / 100 100 / 100 Chloride (Mini-Bag +) 100 ML @ 25 mls/hr IVPB Q8H [id number] Rx#: [id number] Oral 720 / 720 Blood Product 450 / 450 Platelet Pheresis Lp Irr 2nd 450 / 450 Unit [id number] Platelet Pheresis Lp Irr 2nd 0 / 0 Unit [id number] Output: Urine 600 / 600 225 / 225 Other: Meal Breakfast Percent of Meal Consumed 75% Weight 50.5 kg Patient Weight 01/19/18 23:59 Weight 50.5 kg General appearance: cooperative, no acute distress, thin, no febrile Exam: chronically ill appearing - Head Head exam: Present: atraumatic - Respiratory Respiratory exam: Present: decreased breath sounds, CTAB. Absent: respiratory distress - Cardiovascular Cardiovascular exam: Present: RRR, +S1, +S2 - GI/Abdominal GI/Abdominal exam: Present: normal bowel sounds, soft. Absent: tenderness - Extremities Exam Extremities exam: Present: normal inspection. Absent: calf tenderness, pedal edema - Neurological Exam Neurological exam: Present: alert, oriented X3, no focal deficits, strengths equal and symetr throughout - Psychiatric Psychiatric exam: Present: normal affect, normal mood - Skin Skin exam: Present: pallor, warm Oncology: Obj Data - Labs CBC & Chem 7: 01/22/18 06:11 01/22/18 06:11 Labs: Laboratory Results - last 24 hr 01/16/18 01/19/18 01/19/18 05:22 05:24 05:24 WBC 3.7 L RBC 2.20 L Hgb 7.1 L Hct 21.9 L MCV 99.5 MCH 32.3 MCHC 32.4 RDW 20.1 H Plt Count 10 L* MPV TNP Seg Neutrophils % 88.0 Lymphocytes % 6.0 Monocytes % 6.0 Neutrophils # 3.3 Lymphocytes # 0.2 L Monocytes # 0.2 Nucleated RBCs/100 WBC 0.8 H Platelet Estimate Marked Decrease L Immature Plt Fraction 6.8 H Anisocytosis 1+ A Sodium 139 Potassium 3.9 Chloride 106 Carbon Dioxide 25 BUN 34 H Creatinine 0.66 L Est GFR ( Amer) > 60 Est GFR (Non-Af Amer) > 60 BUN/Creatinine Ratio 52 H Glucose 152 H Calculated Osmolality 299 Calcium 8.3 L Blood Type A POSITIVE Antibody Screen NEGATIVE - ABG Interpretation ABG results: PT/INR, D-dimer PT 18.5 Seconds (9.4-12.1) H 01/15/18 21:34 Consult Discharge Plan - Plan Referrals: NONE,PCP [Non-Partnered Physician] -
[2018-01-19] MEDS ORDERED: Furosemide 20 MG/2 ML VIAL IVP ONE (17:19)
--- NOTE | 2018-01-19 17:20 | Internal Med Progress Note ---
Date of Encounter: 01/19/18 Time of Encounter: 17:14 - Assessment and plan (1) Acute and chronic respiratory failure Current Visit: Yes Status: Acute Assessment and plan: Patient with HCAP, COPD exacerbation. 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 Has dyspnea with minimal exertion today - bipap as needed - Aersol therapy Xopenex Q6H - Vancomycin, Levaquin, Zosyn - Solu- Medrol Slight fluid overload, give one time Lasix 20 mg IV. Overall patient prognosis is poor. We discussion of patient prognosis. Patient himself wishes to have no intubation or CPR but he would like transfusion of blood products if needed. Qualifiers: Respiratory failure complication: hypoxia Qualified Code(s): J96.21 - Acute and chronic respiratory failure with hypoxia (2) HCAP (healthcare-associated pneumonia) Current Visit: Yes Status: Acute Assessment and plan: Continue vancomycin, Zosyn, Levaquin Blood cultures follow-up (3) COPD exacerbation Current Visit: No Status: Acute Assessment and plan: COPD with home O2 Finished Prednisone taper Albuterol Nebs Taper SoluMedrol Continue Symbicort (4) PAF (paroxysmal atrial fibrillation) Current Visit: No Status: Acute Assessment and plan: Continue Metoprolol No a/c due to severe thrombocytopenia (5) HTN (hypertension) Current Visit: No Status: Chronic Assessment and plan: BP now in lower normal to normal limits. Hold off antihypertensive medications for now. Qualifiers: Hypertension type: essential hypertension Qualified Code(s): I10 - Essential (primary) hypertension (6) Pancytopenia Current Visit: No Status: Acute Assessment and plan: Oncology consulted, recommendations reviewed Transfuse to keep platelets >10k Transfuse PRBC to keep hemoglobin between 7-8 g. (7) Acute myeloid leukemia Current Visit: Yes Status: Acute Assessment and plan: Patient with poor prognosis. He initially refused Palliative consultation, but patient at this point is willing to consult them and discuss goals of care. Qualifiers: Leukemia Active/Remission status: without remission Qualified Code(s): C92.00 - Acute myeloblastic leukemia, not having achieved remission (8) BPH (benign prostatic hyperplasia) Current Visit: Yes Status: Acute Assessment and plan: Start Flomax Qualifiers: Lower urinary tract symptom presence: symptoms present Lower urinary tract symptom detail: unspecified Qualified Code(s): N40.1 - Benign prostatic hyperplasia with lower urinary tract symptoms (9) DVT prophylaxis Current Visit: No Status: Acute - Subjective Interval history: Patient improved compared to yesterday but family does note that he still appears fatigued. Patient tells me his breathing is better but still gets tired. - Constitutional Vitals: Temp Pulse Resp BP Pulse Ox 97.7 F 110 20 133/68 96 01/19/18 15:30 01/19/18 15:30 01/19/18 16:27 01/19/18 15:30 01/19/18 16:27 General appearance: Present: cachectic, mild distress, A&O X 3 Exam: CVS: tachycardic Lungs: course breath sounds throughout, scant wheezing diffusely, fine rales. Abd: NT/ND ext: no cyanosis, no edema Internal Medicine: Result - Labs CBC & Chem 7: 01/19/18 05:24 01/19/18 05:24 Labs: Short CBC 01/19/18 Range/Units 05:24 WBC 3.7 L (4.3-11.1) K/mcL Hgb 7.1 L (12.9-16.9) g/dL Hct 21.9 L (37.5-50.1) % Plt Count 10 L* (140-400) K/mcL Neutrophils # 3.3 (1.6-8.9) K/mcL BMP 01/19/18 05:24 Sodium 139 Potassium 3.9 Chloride 106 Carbon Dioxide 25 BUN 34 H Creatinine 0.66 L Glucose 152 H Calcium 8.3 L - ABG Interpretation ABG results: PT/INR, D-dimer PT 18.5 Seconds (9.4-12.1) H 01/15/18 21:34 - VTE Documentation of Mechanical Device: Intermittent pneumatic compression device Consult Discharge Plan - Plan Referrals: NONE,PCP [Primary Care Provider] -
--- NOTE | 2018-01-19 20:18 | Electrocardiograph Report ---
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
--- NOTE | 2018-01-19 20:19 | Electrocardiograph Report ---
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
[2018-01-19] MEDS ORDERED: 0.9 % Sodium Chloride 250 ML ONE (21:00)
[2018-01-19] MEDS: Levofloxacin 750 MG/150 ML 750 MG/150 ML BAG IVPB SCH (21:24)
[2018-01-19] MEDS: Latanoprost 2.5 ML BOTTLE BOTH EYES SCH (21:54)
[2018-01-20] MEDS: Levalbuterol Neb 1.25 MG/3 ML IH SCH ×4 (03:56→21:56)
[2018-01-20] MEDS: Piperacillin/Tazobactam 3.375 GM in 0.9 % Sodium Chloride Mini Bag 100 ML IVPB SCH ×3 (04:30→21:04)
[2018-01-20 05:58] LABS: Mean Platelet Volume 10.5 fL (9.4-12.4)
[2018-01-20 06:00] LABS: Hemoglobin 8.9 g/dL (12.9-16.9); Immature Platelets 2.7 % (1.1-6.1); Mean Corpuscular Hemoglobin 31.6 pg (28.0-33.3); Mean Corpuscular Volume 95.7 fL (83.0-100.0); Nucleated Red Blood Cells 1.5 /100 WBC (0); Red Blood Count 2.82 M/mcL (4.19-5.50); Red Cell Distribution Width 18.8 % (11.5-14.5)
[2018-01-20] MEDS: MethylPREDNISolone 40 MG/ML VIAL IVP SCH ×2 (06:01→17:25)
[2018-01-20 06:04] LABS: Platelet Count 55 K/mcL (140-400)
[2018-01-20 06:15] LABS: BUN/Creatinine Ratio 45 (6-26); Blood Urea Nitrogen 33 mg/dL (8-23); Calcium 8.4 mg/dL (8.6-10.3); Carbon Dioxide 27 mEq/L (23-29); Chloride 102 mEq/L (98-107); Glucose 132 mg/dL (70-105); Osmolality,Calculated 295 (280-300); Potassium 3.5 mEq/L (3.5-5.1); Sodium 138 mEq/L (136-145); eGFR For African Americans > 60 (> 60); eGFR For Non-African Americans > 60 (> 60)
[2018-01-20 07:52] LABS: Lymphocytes # 0.6 K/mcL (0.6-4.6); Monocytes # 0.1 K/mcL (0.0-1.3); Platelet Estimate Decreased (Normal); Polychromasia 1+ (Not Present); Reactive Lymphocytes Present (Not Present); Toxic Granulation Present (Not Present)
[2018-01-20 07:53] LABS: Anisocytosis 1+ (Not Present); Macrocytosis Present (Not Present)
[2018-01-20] MEDS: Cholecalciferol (D-3) 1,000 UNIT TABLET PO SCH (08:51)
--- NOTE | 2018-01-20 08:53 | Palliative Progress Note ---
Date of Encounter: 01/20/18 Time of Encounter: 07:30 - Assessment and plan (1) Counseling regarding advanced care planning and goals of care Current Visit: Yes Status: Acute Assessment and plan: She is DNR CCA DNI. Family wished to continue to get transfusions and antibiotics at least at this time. She recognizes he is too weak for chemotherapy but believes that if he does get up and start moving around her but he may get stronger. The patient wishes to have as fusions for pancytopenia he is not hospice eligible, and at this time does not wish to have hospice anyway. He does not feel they can take care of him at home any further and rehabilitation is being discussed. (2) Generalized pain Current Visit: Yes Status: Acute Assessment and plan: Per patient under control at this time continue current meds continue to watch (3) HCAP (healthcare-associated pneumonia) Current Visit: Yes Status: Acute Assessment and plan: No culture results available, patient is on antibiotics plan per hospitalist team (4) Pancytopenia Current Visit: No Status: Acute Assessment and plan: White count is 2.7 today, being followed by oncology - Time Spent With Patient Total time spent is greater than 50% in coordination of care (as documented) at patient's floor/unit and/or counseling patient: - Subjective Interval history: Patient states he feels very weak but also feels that he must get up into a chair and try to move around a little bit. He does not feel he is getting any better just laying in bed. He wishes to go home as soon as this is possible. - Constitutional Vitals: Abnormal lab results WBC 2.7 K/mcL (4.3-11.1) L 01/20/18 05:40 RBC 2.82 M/mcL (4.19-5.50) L 01/20/18 05:40 Hgb 8.9 g/dL (12.9-16.9) L D 01/20/18 05:40 Hct 27.0 % (37.5-50.1) L 01/20/18 05:40 RDW 18.8 % (11.5-14.5) H 01/20/18 05:40 Plt Count 55 K/mcL (140-400) L D 01/20/18 05:40 Immature Gran % 7.0 % (0-4) H 01/17/18 05:44 Band Neutrophils % 6.0 % (0-4) H 01/18/18 05:01 Nucleated RBCs/100 WBC 1.5 /100 WBC (0) H 01/20/18 05:40 Reactive Lymphocytes Present (Not Present) A 01/20/18 05:40 Toxic Granulation Present (Not Present) A 01/20/18 05:40 Platelet Estimate Decreased (Normal) L 01/20/18 05:40 Polychromasia 1+ (Not Present) A 01/20/18 05:40 Anisocytosis 1+ (Not Present) A 01/20/18 05:40 Macrocytosis Present (Not Present) A 01/20/18 05:40 PT 18.5 Seconds (9.4-12.1) H 01/15/18 21:34 BUN 33 mg/dL (8-23) H 01/20/18 05:40 BUN/Creatinine Ratio 45 (6-26) H 01/20/18 05:40 Glucose 132 mg/dL (70-105) H 01/20/18 05:40 Calcium 8.4 mg/dL (8.6-10.3) L 01/20/18 05:40 Urine Blood Moderate (Negative) H 01/15/18 22:10 Urine Microscopic RBC 30-50 per hpf (0-3) H 01/15/18 22:10 Ur Squamous Epith Cells Many per lpf (None-Few) H 01/15/18 22:10 Vancomycin Trough 5.0 mcg/mL (10-20) L 01/17/18 16:54 General appearance: Present: no acute distress - Head Head exam: Present: atraumatic, normal inspection - Respiratory Respiratory exam: Present: decreased breath sounds, tachypnea - Cardiovascular Cardiovascular exam: Present: RRR - GI/Abdominal GI/Abdominal exam: Present: normal bowel sounds, soft. Absent: tenderness - Extremities Exam Extremities exam: Absent: pedal edema, tenderness - Neurological Exam Neurological exam: Present: alert - Psychiatric Psychiatric exam: Absent: agitated, anxious (But does want to get up and move around, like to get up to a chair he starts thinking about going home.) - Skin Skin exam: Present: dry, warm Palliative Quality Palliative Quality: Screen for Code Status: Yes, Screen for Goals of Care: Yes, Screen for Pain: Yes, If Pain Regimen Started, Initiate Bowel Regimen: NA, Screen for Nausea/Vomitting: Yes Code Status: 01/18/18 17:58 CODE [Resuscitation Status: Active] [RES] Routine Comment: Resuscitation Status: [id number] - Labs CBC & Chem 7: 01/20/18 05:40 01/20/18 05:40 Labs: Laboratory Results - last 24 hr 01/16/18 01/20/18 01/20/18 05:22 05:40 05:40 WBC 2.7 L RBC 2.82 L Hgb 8.9 L D Hct 27.0 L MCV 95.7 MCH 31.6 MCHC 33.0 RDW 18.8 H Plt Count 55 L D MPV 10.5 Seg Neutrophils % 74.0 Lymphocytes % 22.0 Monocytes % 4.0 Neutrophils # 2.0 Lymphocytes # 0.6 Monocytes # 0.1 Nucleated RBCs/100 WBC 1.5 H Reactive Lymphocytes Present A Toxic Granulation Present A Platelet Estimate Decreased L Immature Plt Fraction 2.7 Polychromasia 1+ A Anisocytosis 1+ A Macrocytosis Present A Sodium 138 Potassium 3.5 Chloride 102 Carbon Dioxide 27 BUN 33 H Creatinine 0.73 Est GFR ( Amer) > 60 Est GFR (Non-Af Amer) > 60 BUN/Creatinine Ratio 45 H Glucose 132 H Calculated Osmolality 295 Calcium 8.4 L Blood Type A POSITIVE Antibody Screen NEGATIVE Crossmatch See Detail - ABG Interpretation ABG results: PT/INR, D-dimer PT 18.5 Seconds (9.4-12.1) H 01/15/18 21:34 Consult Discharge Plan - Plan Referrals: NONE,PCP [Primary Care Provider] -
[2018-01-20] MEDS: Budesonide/Formoterol 160/4.5 MDI IH SCH ×2 (09:47→21:56)
[2018-01-20] MEDS: Tiotropium 18 MCG inhalation IH SCH (09:48)
[2018-01-20] MEDS: *HR* HYDROcodone/Acet 5/325 mg TABLET PO PRN (10:49)
--- NOTE | 2018-01-20 17:15 | Internal Med Progress Note ---
Date of Encounter: 01/20/18 Time of Encounter: 17:13 - Assessment and plan (1) Acute and chronic respiratory failure Current Visit: Yes Status: Acute Assessment and plan: Patient with HCAP, COPD exacerbation. 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 Has dyspnea with minimal exertion today - bipap as needed - Aersol therapy Xopenex Q6H - Vancomycin, Levaquin, Zosyn - Solu- Medrol Repeat chest x-ray One dose IV Lasix today Patient gradually improved but still unstable for discharge Qualifiers: Respiratory failure complication: hypoxia Qualified Code(s): J96.21 - Acute and chronic respiratory failure with hypoxia (2) HCAP (healthcare-associated pneumonia) Current Visit: Yes Status: Acute Assessment and plan: Continue vancomycin, Zosyn, Levaquin Blood cultures follow-up (3) COPD exacerbation Current Visit: No Status: Acute Assessment and plan: COPD with home O2 Finished Prednisone taper Albuterol Nebs Taper SoluMedrol Continue Symbicort (4) PAF (paroxysmal atrial fibrillation) Current Visit: No Status: Acute Assessment and plan: Continue Metoprolol No a/c due to severe thrombocytopenia (5) HTN (hypertension) Current Visit: No Status: Chronic Assessment and plan: BP now in lower normal to normal limits. Hold off antihypertensive medications for now. Qualifiers: Hypertension type: essential hypertension Qualified Code(s): I10 - Essential (primary) hypertension (6) Pancytopenia Current Visit: No Status: Acute Assessment and plan: Oncology consulted, recommendations reviewed Transfuse to keep platelets >10k Transfuse PRBC to keep hemoglobin between 7-8 g. Had 2 units platelets, and 1 units PRBC yesterday, labs improved. (7) Acute myeloid leukemia Current Visit: Yes Status: Acute Assessment and plan: Patient with poor prognosis. He initially refused Palliative consultation, but patient at this point is willing to consult them and discuss goals of care. Qualifiers: Leukemia Active/Remission status: without remission Qualified Code(s): C92.00 - Acute myeloblastic leukemia, not having achieved remission (8) BPH (benign prostatic hyperplasia) Current Visit: Yes Status: Acute Assessment and plan: Start Flomax Qualifiers: Lower urinary tract symptom presence: symptoms present Lower urinary tract symptom detail: unspecified Qualified Code(s): N40.1 - Benign prostatic hyperplasia with lower urinary tract symptoms (9) DVT prophylaxis Current Visit: No Status: Acute - Subjective Interval history: Patient has not had significant change from yesterday. Family in room note that he still gets very tachycardic and fatigued with minimal exertion. He denies fevers/chills, chest pain, n/v. - Constitutional Vitals: Temp Pulse Resp BP Pulse Ox 98 F 100 19 107/58 94 01/20/18 16:20 01/20/18 16:20 01/20/18 16:20 01/20/18 16:20 01/20/18 16:20 General appearance: Present: cachectic, mild distress, A&O X 3 Exam: CVS: tachycardic Lungs: course breath sounds throughout, scant wheezing diffusely, fine rales. Abd: NT/ND ext: no cyanosis, no edema Internal Medicine: Result - Labs CBC & Chem 7: 01/20/18 05:40 01/20/18 05:40 Labs: Short CBC 01/20/18 Range/Units 05:40 WBC 2.7 L (4.3-11.1) K/mcL Hgb 8.9 L D (12.9-16.9) g/dL Hct 27.0 L (37.5-50.1) % Plt Count 55 L D (140-400) K/mcL Neutrophils # 2.0 (1.6-8.9) K/mcL BMP 01/20/18 05:40 Sodium 138 Potassium 3.5 Chloride 102 Carbon Dioxide 27 BUN 33 H Creatinine 0.73 Glucose 132 H Calcium 8.4 L - ABG Interpretation ABG results: PT/INR, D-dimer PT 18.5 Seconds (9.4-12.1) H 01/15/18 21:34 - VTE Documentation of Mechanical Device: Intermittent pneumatic compression device Consult Discharge Plan - Plan Referrals: NONE,PCP [Primary Care Provider] -
[2018-01-20] MEDS: Latanoprost 2.5 ML BOTTLE BOTH EYES SCH (23:46)
[2018-01-21] MEDS: Levalbuterol Neb 1.25 MG/3 ML IH SCH ×4 (04:03→22:33)
[2018-01-21] MEDS: MethylPREDNISolone 40 MG/ML VIAL IVP SCH ×2 (05:21→17:54)
[2018-01-21] MEDS: Piperacillin/Tazobactam 3.375 GM in 0.9 % Sodium Chloride Mini Bag 100 ML IVPB SCH ×3 (05:21→21:11)
[2018-01-21] MEDS: *HR* HYDROcodone/Acet 5/325 mg TABLET PO PRN (06:58)
[2018-01-21 08:09] LABS: Hematocrit 27.4 % (37.5-50.1); Mean Corpuscular HGB Conc 32.8 g/dL (31.6-35.5); Mean Corpuscular Hemoglobin 31.9 pg (28.0-33.3); Mean Corpuscular Volume 97.2 fL (83.0-100.0); Mean Platelet Volume 10.5 fL (9.4-12.4); Monocytes # 0.3 K/mcL (0.0-1.3); Nucleated Red Blood Cells 0.9 /100 WBC (0); Red Blood Count 2.82 M/mcL (4.19-5.50); Red Cell Distribution Width 19.3 % (11.5-14.5)
[2018-01-21 08:34] LABS: BUN/Creatinine Ratio 50 (6-26); Blood Urea Nitrogen 36 mg/dL (8-23); Calcium 8.2 mg/dL (8.6-10.3); Carbon Dioxide 27 mEq/L (23-29); Chloride 105 mEq/L (98-107); Glucose 111 mg/dL (70-105); Osmolality,Calculated 297 (280-300); Potassium 4.2 mEq/L (3.5-5.1); Sodium 139 mEq/L (136-145); eGFR For African Americans > 60 (> 60); eGFR For Non-African Americans > 60 (> 60)
[2018-01-21] MEDS: Cholecalciferol (D-3) 1,000 UNIT TABLET PO SCH (09:32)
[2018-01-21] MEDS: Budesonide/Formoterol 160/4.5 MDI IH SCH ×2 (09:40→22:33)
[2018-01-21] MEDS: Tiotropium 18 MCG inhalation IH SCH (09:42)
[2018-01-21 10:11] LABS: Platelet Count 31 K/mcL (140-400)
[2018-01-21 10:14] LABS: Lymphocytes # 0.6 K/mcL (0.6-4.6); Neutrophils # 2.5 K/mcL (1.6-8.9); Platelet Estimate Decreased (Normal)
[2018-01-21] MEDS: Melatonin 3 MG TABLET PO PRN (21:09)
[2018-01-21] MEDS: Levofloxacin 750 MG/150 ML 750 MG/150 ML BAG IVPB SCH (21:10)
[2018-01-21] MEDS: ALPRAZolam 0.25 MG TABLET PO PRN (21:11)
--- NOTE | 2018-01-21 21:56 | Internal Med Progress Note ---
Date of Encounter: 01/21/18 Time of Encounter: 10:56 - Assessment and plan (1) Acute and chronic respiratory failure Current Visit: Yes Status: Acute Assessment and plan: Patient with HCAP, COPD exacerbation and fluid overload seen on x-ray. 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 - bipap as needed - Aersol therapy Xopenex Q6H - Vancomycin, Levaquin, Zosyn - continue steroids Qualifiers: Respiratory failure complication: hypoxia Qualified Code(s): J96.21 - Acute and chronic respiratory failure with hypoxia (2) HCAP (healthcare-associated pneumonia) Current Visit: Yes Status: Acute Assessment and plan: Continue vancomycin, Zosyn, Levaquin Transition to PO when able (3) COPD exacerbation Current Visit: No Status: Acute Assessment and plan: COPD with home O2 Albuterol Nebs Continue Symbicort (4) PAF (paroxysmal atrial fibrillation) Current Visit: No Status: Acute Assessment and plan: Continue Metoprolol No a/c due to severe thrombocytopenia (5) HTN (hypertension) Current Visit: No Status: Chronic Assessment and plan: BP now in lower normal to normal limits. Hold off antihypertensive medications for now. Qualifiers: Hypertension type: essential hypertension Qualified Code(s): I10 - Essential (primary) hypertension (6) Pancytopenia Current Visit: No Status: Acute Assessment and plan: Oncology consulted, recommendations reviewed Transfuse to keep platelets >10k Transfuse PRBC to keep hemoglobin between 7-8 g. Had 2 units platelets, and 1 units PRBC labs improved (7) Acute myeloid leukemia Current Visit: Yes Status: Acute Assessment and plan: Patient with poor prognosis. He initially refused Palliative consultation, now has discussed goals of care. Qualifiers: Leukemia Active/Remission status: without remission Qualified Code(s): C92.00 - Acute myeloblastic leukemia, not having achieved remission (8) BPH (benign prostatic hyperplasia) Current Visit: Yes Status: Acute Assessment and plan: continue Flomax Qualifiers: Lower urinary tract symptom presence: symptoms present Lower urinary tract symptom detail: unspecified Qualified Code(s): N40.1 - Benign prostatic hyperplasia with lower urinary tract symptoms (9) DVT prophylaxis Current Visit: No Status: Acute - Subjective Interval history: Patient has not had significant change from yesterday. - Constitutional Vitals: Temp Pulse Resp BP Pulse Ox 98.3 F 109 20 127/75 90 01/21/18 20:00 01/21/18 20:00 01/21/18 20:00 01/21/18 20:00 01/21/18 20:00 General appearance: Present: cachectic, mild distress, A&O X 3 Exam: CVS:RRR Lungs: Course breath sounds throughout, good air exchange, Ext: no cyanosis, no clubbing, trace bipedal edema Internal Medicine: Result - Labs CBC & Chem 7: 01/23/18 03:58 01/23/18 03:58 Labs: Short CBC 01/21/18 Range/Units 07:42 WBC 3.4 L (4.3-11.1) K/mcL Hgb 9.0 L (12.9-16.9) g/dL Hct 27.4 L (37.5-50.1) % Plt Count 31 L (140-400) K/mcL Neutrophils # 2.5 (1.6-8.9) K/mcL BMP 01/21/18 07:42 Sodium 139 Potassium 4.2 Chloride 105 Carbon Dioxide 27 BUN 36 H Creatinine 0.72 Glucose 111 H Calcium 8.2 L - ABG Interpretation ABG results: PT/INR, D-dimer PT 18.5 Seconds (9.4-12.1) H 01/15/18 21:34 - Impressions Impressions Chest X-Ray 01/20/18 17:14 IMPRESSION: Left pleural effusion as well as airspace disease superimposed upon emphysema, edema or pneumonia. D/ / Jasmin Cedillo Cha, MD / Jasmin Cedillo Cha, MD Interpreting Provider: Jasmin Cedillo Cha, MD - VTE Documentation of Mechanical Device: Intermittent pneumatic compression device Consult Discharge Plan - Plan Referrals: Lynne Kim MD [Primary Care Provider] -
[2018-01-21] MEDS: Latanoprost 2.5 ML BOTTLE BOTH EYES SCH (23:37)
[2018-01-21] MEDS: Furosemide 40 MG/4 ML VIAL IVP SCH (23:46)
[2018-01-22] MEDS: Levalbuterol Neb 1.25 MG/3 ML IH SCH ×4 (05:14→22:15)
[2018-01-22] MEDS: MethylPREDNISolone 40 MG/ML VIAL IVP SCH (05:39)
[2018-01-22] MEDS: Piperacillin/Tazobactam 3.375 GM in 0.9 % Sodium Chloride Mini Bag 100 ML IVPB SCH ×3 (05:41→21:32)
[2018-01-22 07:39] LABS: BUN/Creatinine Ratio 45 (6-26); Blood Urea Nitrogen 39 mg/dL (8-23); Calcium 8.5 mg/dL (8.6-10.3); Carbon Dioxide 29 mEq/L (23-29); Chloride 100 mEq/L (98-107); Glucose 118 mg/dL (70-105); Osmolality,Calculated 292 (280-300); Potassium 4.3 mEq/L (3.5-5.1); Sodium 136 mEq/L (136-145); eGFR For African Americans > 60 (> 60); eGFR For Non-African Americans > 60 (> 60)
[2018-01-22 08:19] LABS: Red Cell Distribution Width 18.8 % (11.5-14.5)
[2018-01-22 08:21] LABS: Hematocrit 28.9 % (37.5-50.1); Hemoglobin 9.2 g/dL (12.9-16.9); Immature Platelets 4.9 % (1.1-6.1); Mean Corpuscular HGB Conc 31.8 g/dL (31.6-35.5); Mean Corpuscular Hemoglobin 31.5 pg (28.0-33.3); Mean Platelet Volume 11.3 fL (9.4-12.4); Monocytes # 0.2 K/mcL (0.0-1.3); Nucleated Red Blood Cells 1.2 /100 WBC (0); Red Blood Count 2.92 M/mcL (4.19-5.50)
[2018-01-22 09:27] LABS: Platelet Count 19 K/mcL (140-400)
[2018-01-22] MEDS: Cholecalciferol (D-3) 1,000 UNIT TABLET PO SCH (09:50)
[2018-01-22] MEDS: Furosemide 40 MG/4 ML VIAL IVP SCH ×2 (09:50→21:31)
--- NOTE | 2018-01-22 09:56 | Palliative Progress Note ---
Date of Encounter: 01/22/18 Time of Encounter: 09:40 - Assessment and plan (1) Pancytopenia Current Visit: No Status: Acute Assessment and plan: Continued monitoring completed by Oncology. Platelet count down to 19 today. (2) Generalized weakness Current Visit: No Status: Acute Assessment and plan: Patient continued weakness and requires assistance with ADLs. Patient requested attainment of Wheelchair, notified SW of need. PT/OT reconsulted, as patient has been discharged from services, to work with patient. Nursing assisting patient to stand and pivot for urinal and bedside commode usage. (3) HCAP (healthcare-associated pneumonia) Current Visit: Yes Status: Acute (4) Debility Current Visit: Yes Status: Acute Assessment and plan: Inability to care for self. Family continuing to discuss plan for discharge, home versus ECF. (5) Generalized pain Current Visit: Yes Status: Acute Assessment and plan: Patient ordered Rentz, no doses administered in the last 24 hours. Denies pain at present time. (6) Counseling regarding advanced care planning and goals of care Current Visit: Yes Status: Acute Assessment and plan: Discussed plan of care at discharge. Patient does not want to go to ECF and wants to go home, refuses hospice at present time. Family to discuss with patient plans for discharge, follow up at later time. SW following. (7) Anxiety Current Visit: Yes Status: Acute Assessment and plan: Patient reports anxiety due to length of hospital stay. Patient is ordered Xanax PO for anxiety, no doses in last 24 hours; informed patient has available if needed. - Time Spent With Patient Total time spent is greater than 50% in coordination of care (as documented) at patient's floor/unit and/or counseling patient: - Subjective Interval history: Patient sitting in bed, alert and oriented upon arrival to room. No family present at bedside.Reports current illnesses include COPD and Leukemia, "don't want any of those illnesses." Denies pain at present time. 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 Discussed ability to self care, patient states he has a nurse that comes in sometimes and family. Reports using urinal and bedside commode. Has walker and wheelchair to assist with ambulation at home, but wheelchair is very old and interested in attaining a new one. Open to visit from to arrange for wheelchair. Reports has been able to get up with assistance to bedside for urinal and bedside commode. Reports being able to stand independently, but self reports being unsteady. - Constitutional Vitals: Abnormal lab results WBC 3.4 K/mcL (4.3-11.1) L 01/22/18 06:11 RBC 2.92 M/mcL (4.19-5.50) L 01/22/18 06:11 Hgb 9.2 g/dL (12.9-16.9) L 01/22/18 06:11 Hct 28.9 % (37.5-50.1) L 01/22/18 06:11 RDW 18.8 % (11.5-14.5) H 01/22/18 06:11 Plt Count 19 K/mcL (140-400) L* 01/22/18 06:11 Immature Gran % 7.0 % (0-4) H 01/17/18 05:44 Metamyelocytes % 2.0 % (0) H 01/21/18 07:42 Nucleated RBCs/100 WBC 1.2 /100 WBC (0) H 01/22/18 06:11 Reactive Lymphocytes Present (Not Present) A 01/20/18 05:40 Toxic Granulation Present (Not Present) A 01/20/18 05:40 Platelet Estimate Decreased (Normal) L 01/21/18 07:42 Polychromasia 1+ (Not Present) A 01/20/18 05:40 Anisocytosis 1+ (Not Present) A 01/20/18 05:40 Macrocytosis Present (Not Present) A 01/20/18 05:40 PT 18.5 Seconds (9.4-12.1) H 01/15/18 21:34 BUN 39 mg/dL (8-23) H 01/22/18 06:11 BUN/Creatinine Ratio 45 (6-26) H 01/22/18 06:11 Glucose 118 mg/dL (70-105) H 01/22/18 06:11 Calcium 8.5 mg/dL (8.6-10.3) L 01/22/18 06:11 Urine Blood Moderate (Negative) H 01/15/18 22:10 Urine Microscopic RBC 30-50 per hpf (0-3) H 01/15/18 22:10 Ur Squamous Epith Cells Many per lpf (None-Few) H 01/15/18 22:10 Vancomycin Trough 2.3 mcg/mL (10-20) L 01/20/18 15:45 - Head Head exam: Present: normal inspection - Eye Eye exam: Present: normal appearance - ENT ENT exam: Present: mucous membranes moist - Neck Neck exam: Present: full ROM, normal inspection - Respiratory Respiratory exam: Present: CTAB - Cardiovascular Cardiovascular exam: Present: +S1, +S2. Absent: irregular rhythm - GI/Abdominal GI/Abdominal exam: Present: normal bowel sounds, soft. Absent: tenderness - Rectal Rectal exam: Present: deferred - Extremities Exam Extremities exam: Present: normal capillary refill. Absent: calf tenderness - Neurological Exam Neurological exam: Present: alert, oriented X3 - Psychiatric Psychiatric exam: Present: anxious, normal mood - Skin Skin exam: Present: dry, normal color, warm Palliative Quality Palliative Quality: Screen for Code Status: Yes, Screen for Goals of Care: Yes, Screen for Pain: Yes, If Pain Regimen Started, Initiate Bowel Regimen: NA, Screen for Nausea/Vomitting: Yes Code Status: 01/18/18 17:58 CODE [Resuscitation Status: Active] [RES] Routine Comment: Resuscitation Status: [id number] - Labs CBC & Chem 7: 01/22/18 06:11 01/22/18 06:11 Labs: Laboratory Results - last 24 hr 01/21/18 01/22/18 01/22/18 07:42 06:11 06:11 WBC 3.4 L 3.4 L RBC 2.82 L 2.92 L Hgb 9.0 L 9.2 L Hct 27.4 L 28.9 L MCV 97.2 99.0 MCH 31.9 31.5 MCHC 32.8 31.8 RDW 19.3 H 18.8 H Plt Count 31 L 19 L* MPV 10.5 11.3 Seg Neutrophils % 70.0 Band Neutrophils % 2.0 Lymphocytes % 18.0 Monocytes % 8.0 Metamyelocytes % 2.0 H Neutrophils # 2.5 Lymphocytes # 0.6 Monocytes # 0.3 Nucleated RBCs/100 WBC 0.9 H 1.2 H Platelet Estimate Decreased L Immature Plt Fraction 3.0 4.9 Sodium 136 Potassium 4.3 Chloride 100 Carbon Dioxide 29 BUN 39 H Creatinine 0.86 Est GFR ( Amer) > 60 Est GFR (Non-Af Amer) > 60 BUN/Creatinine Ratio 45 H Glucose 118 H Calculated Osmolality 292 Calcium 8.5 L - ABG Interpretation ABG results: PT/INR, D-dimer PT 18.5 Seconds (9.4-12.1) H 01/15/18 21:34 Consult Discharge Plan - Plan Referrals: NONE,PCP [Non-Partnered Physician] -
[2018-01-22 10:27] LABS: Lymphocytes # 0.5 K/mcL (0.6-4.6); Neutrophils # 2.5 K/mcL (1.6-8.9)
[2018-01-22 10:28] LABS: Platelet Estimate Marked Decrease (Normal)
[2018-01-22] MEDS: Budesonide/Formoterol 160/4.5 MDI IH SCH ×2 (11:17→22:17)
[2018-01-22] MEDS: Tiotropium 18 MCG inhalation IH SCH (11:18)
--- NOTE | 2018-01-22 16:20 | Internal Med Progress Note ---
Date of Encounter: 01/22/18 Time of Encounter: 16:16 - Assessment and plan (1) Acute and chronic respiratory failure Current Visit: Yes Status: Acute Assessment and plan: Patient with HCAP, COPD exacerbation and fluid overload seen on x-ray. 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 - bipap as needed - Aersol therapy Xopenex Q6H - Vancomycin, Levaquin, Zosyn - Transition to oral steroids today Patient improving, possibly stable for discharge tomorrow PT/OT evaluation pending. Recheck platelets in AM Qualifiers: Respiratory failure complication: hypoxia Qualified Code(s): J96.21 - Acute and chronic respiratory failure with hypoxia (2) HCAP (healthcare-associated pneumonia) Current Visit: Yes Status: Acute Assessment and plan: Continue vancomycin, Zosyn, Levaquin Transition to PO (3) COPD exacerbation Current Visit: No Status: Acute Assessment and plan: COPD with home O2 Albuterol Nebs Continue Symbicort (4) PAF (paroxysmal atrial fibrillation) Current Visit: No Status: Acute Assessment and plan: Continue Metoprolol No a/c due to severe thrombocytopenia (5) HTN (hypertension) Current Visit: No Status: Chronic Assessment and plan: BP now in lower normal to normal limits. Hold off antihypertensive medications for now. Qualifiers: Hypertension type: essential hypertension Qualified Code(s): I10 - Essential (primary) hypertension (6) Pancytopenia Current Visit: No Status: Acute Assessment and plan: Oncology consulted, recommendations reviewed Transfuse to keep platelets >10k Transfuse PRBC to keep hemoglobin between 7-8 g. Had 2 units platelets, and 1 units PRBC labs improved (7) Acute myeloid leukemia Current Visit: Yes Status: Acute Assessment and plan: Patient with poor prognosis. He initially refused Palliative consultation, but patient at this point is willing to consult them and discuss goals of care. Qualifiers: Leukemia Active/Remission status: without remission Qualified Code(s): C92.00 - Acute myeloblastic leukemia, not having achieved remission (8) BPH (benign prostatic hyperplasia) Current Visit: Yes Status: Acute Assessment and plan: Start Flomax Qualifiers: Lower urinary tract symptom presence: symptoms present Lower urinary tract symptom detail: unspecified Qualified Code(s): N40.1 - Benign prostatic hyperplasia with lower urinary tract symptoms (9) DVT prophylaxis Current Visit: No Status: Acute - Subjective Interval history: Patient feeling better. Gets some fatigue with exertion but much improved since before. - Constitutional Vitals: Temp Pulse Resp BP Pulse Ox 97.7 F 103 18 121/70 88 01/22/18 06:46 01/22/18 06:46 01/22/18 11:17 01/22/18 06:46 01/22/18 11:17 General appearance: Present: cachectic, mild distress, A&O X 3 Exam: CVS: RRR Lungs: course breath sounds throughout, wheezing improved, fine rales. Abd: NT/ND ext: no cyanosis, no edema Internal Medicine: Result - Labs CBC & Chem 7: 01/22/18 06:11 01/22/18 06:11 Labs: Short CBC 01/22/18 Range/Units 06:11 WBC 3.4 L (4.3-11.1) K/mcL Hgb 9.2 L (12.9-16.9) g/dL Hct 28.9 L (37.5-50.1) % Plt Count 19 L* (140-400) K/mcL Neutrophils # 2.5 (1.6-8.9) K/mcL BMP 01/22/18 06:11 Sodium 136 Potassium 4.3 Chloride 100 Carbon Dioxide 29 BUN 39 H Creatinine 0.86 Glucose 118 H Calcium 8.5 L - ABG Interpretation ABG results: PT/INR, D-dimer PT 18.5 Seconds (9.4-12.1) H 01/15/18 21:34 - VTE Documentation of Mechanical Device: Intermittent pneumatic compression device Consult Discharge Plan - Plan Referrals: NONE,PCP [Non-Partnered Physician] -
[2018-01-22] MEDS: Nystatin SUSP 5 ML UD.LIQ PO SCH ×2 (17:23→21:31)
[2018-01-22] MEDS: Latanoprost 2.5 ML BOTTLE BOTH EYES SCH (21:30)
[2018-01-22] MEDS: Melatonin 3 MG TABLET PO PRN (21:33)
[2018-01-23] MEDS: Levalbuterol Neb 1.25 MG/3 ML IH SCH ×4 (04:05→22:23)
[2018-01-23 04:38] LABS: Basophils % 0.5 %; Eosinophils % 2.8 %; Hematocrit 25.6 % (37.5-50.1); Hemoglobin 8.4 g/dL (12.9-16.9); Mean Corpuscular HGB Conc 32.8 g/dL (31.6-35.5); Mean Platelet Volume 13.3 fL (9.4-12.4); Red Cell Distribution Width 18.6 % (11.5-14.5)
[2018-01-23 04:40] LABS: BUN/Creatinine Ratio 61 (6-26); Blood Urea Nitrogen 47 mg/dL (8-23); Carbon Dioxide 30 mEq/L (23-29); Chloride 102 mEq/L (98-107); Eosinophils # 0.1 K/mcL (0.0-0.6); Glucose 111 mg/dL (70-105); Immature Platelets 5.9 % (1.1-6.1); Lymphocytes # 0.4 K/mcL (0.6-4.6); Lymphocytes % 10.9 %; Mean Corpuscular Hemoglobin 32.1 pg (28.0-33.3); Mean Corpuscular Volume 97.7 fL (83.0-100.0); Monocytes # 0.3 K/mcL (0.0-1.3); Monocytes % 7.5 %; Neutrophils # 2.5 K/mcL (1.6-8.9); Nucleated Red Blood Cells 2.8 /100 WBC (0); Osmolality,Calculated 299 (280-300); Potassium 3.7 mEq/L (3.5-5.1); Red Blood Count 2.62 M/mcL (4.19-5.50); Segmented Neutrophils % 64.3 %; Sodium 138 mEq/L (136-145); eGFR For African Americans > 60 (> 60); eGFR For Non-African Americans > 60 (> 60)
[2018-01-23] MEDS: Piperacillin/Tazobactam 3.375 GM in 0.9 % Sodium Chloride Mini Bag 100 ML IVPB SCH ×3 (05:12→20:03)
[2018-01-23 05:24] LABS: Platelet Count 13 K/mcL (140-400)
[2018-01-23 05:26] LABS: Platelet Estimate Decreased (Normal); Reactive Lymphocytes Present (Not Present)
[2018-01-23] MEDS: Cholecalciferol (D-3) 1,000 UNIT TABLET PO SCH (09:20)
[2018-01-23] MEDS: predniSONE 20 MG TABLET PO SCH (09:20)
[2018-01-23] MEDS: Nystatin SUSP 5 ML UD.LIQ PO SCH ×4 (09:20→20:03)
[2018-01-23] MEDS: Furosemide 40 MG/4 ML VIAL IVP SCH (09:21)
[2018-01-23] MEDS: Budesonide/Formoterol 160/4.5 MDI IH SCH ×2 (10:17→22:24)
[2018-01-23] MEDS: Tiotropium 18 MCG inhalation IH SCH (10:17)
--- NOTE | 2018-01-23 10:26 | Palliative Progress Note ---
Date of Encounter: 01/23/18 Time of Encounter: 10:05 - Assessment and plan (1) Pancytopenia Current Visit: No Status: Acute Assessment and plan: Continued monitoring completed by Oncology. Platelet count down to 13 today, orders in place to transfuse at 10. (2) Generalized weakness Current Visit: No Status: Acute Assessment and plan: Patient continued weakness and requires assistance with ADLs, and repositioning in bed. PT/OT has been consulted to work with patient. (3) HCAP (healthcare-associated pneumonia) Current Visit: Yes Status: Acute Assessment and plan: Patient has coarse and rhonchi lung sounds. Continued treatment on Vancomycin, Zosyn, and Levaquin as ordered. (4) Debility Current Visit: Yes Status: Acute Assessment and plan: Inability to care for self. PT and OT to work with patient. (5) Generalized pain Current Visit: Yes Status: Acute Assessment and plan: Patient ordered [place], no doses administered in the last 24 hours. Denies pain at present time. (6) Counseling regarding advanced care planning and goals of care Current Visit: Yes Status: Acute (7) Anxiety Current Visit: Yes Status: Acute Assessment and plan: Patient reports anxiety due to length of hospital stay. Patient is ordered Xanax PO for anxiety, no doses in last 24 hours. - Time Spent With Patient Total time spent is greater than 50% in coordination of care (as documented) at patient's floor/unit and/or counseling patient: - Subjective Interval history: Patient getting bath on arrival to room. Is alert and oriented. No family present at bedside. Denies pain at present time, does reports anxiety due to duration of hospital stay. Patient has not taken oral anxiety medication or pain medication for greater than 24 hours. Assisted patient care to move patient up in bed to assist with becoming more comfortable. Patient wishes to be discharged home today, but reports has not been around yet. Reports with patients "blood levels" he does not think the doctor will allow him to leave. No further complaints at this time. - Constitutional Vitals: Abnormal lab results WBC 3.9 K/mcL (4.3-11.1) L 01/23/18 03:58 RBC 2.62 M/mcL (4.19-5.50) L 01/23/18 03:58 Hgb 8.4 g/dL (12.9-16.9) L 01/23/18 03:58 Hct 25.6 % (37.5-50.1) L 01/23/18 03:58 RDW 18.6 % (11.5-14.5) H 01/23/18 03:58 Plt Count 13 K/mcL (140-400) L* 01/23/18 03:58 MPV 13.3 fL (9.4-12.4) H 01/23/18 03:58 Immature Gran % 14.0 % (0-4) H 01/23/18 03:58 Band Neutrophils % 14.0 % (0-4) H 01/22/18 06:11 Metamyelocytes % 2.0 % (0) H 01/22/18 06:11 Myelocytes % 2.0 % (0) H 01/22/18 06:11 Lymphocytes # 0.4 K/mcL (0.6-4.6) L 01/23/18 03:58 Nucleated RBCs/100 WBC 2.8 /100 WBC (0) H 01/23/18 03:58 Reactive Lymphocytes Present (Not Present) A 01/23/18 03:58 Toxic Granulation Present (Not Present) A 01/20/18 05:40 Platelet Estimate Decreased (Normal) L 01/23/18 03:58 Polychromasia 1+ (Not Present) A 01/20/18 05:40 Anisocytosis 1+ (Not Present) A 01/20/18 05:40 Macrocytosis Present (Not Present) A 01/20/18 05:40 PT 18.5 Seconds (9.4-12.1) H 01/15/18 21:34 Carbon Dioxide 30 mEq/L (23-29) H 01/23/18 03:58 BUN 47 mg/dL (8-23) H 01/23/18 03:58 BUN/Creatinine Ratio 61 (6-26) H 01/23/18 03:58 Glucose 111 mg/dL (70-105) H 01/23/18 03:58 Calcium 8.0 mg/dL (8.6-10.3) L 01/23/18 03:58 Urine Blood Moderate (Negative) H 01/15/18 22:10 Urine Microscopic RBC 30-50 per hpf (0-3) H 01/15/18 22:10 Ur Squamous Epith Cells Many per lpf (None-Few) H 01/15/18 22:10 - Head Head exam: Present: normal inspection, normocephalic - Eye Eye exam: Present: normal appearance - ENT ENT exam: Present: mucous membranes dry - Neck Neck exam: Present: full ROM, normal inspection - Respiratory Respiratory exam: Present: rhonchi - Cardiovascular Cardiovascular exam: Present: +S1, +S2 - GI/Abdominal GI/Abdominal exam: Present: normal bowel sounds, soft. Absent: tenderness - Rectal Rectal exam: Present: deferred - Neurological Exam Neurological exam: Present: alert, oriented X3 - Psychiatric Psychiatric exam: Present: anxious, normal mood Palliative Quality Palliative Quality: Screen for Code Status: Yes, Screen for Goals of Care: Yes, Screen for Pain: Yes, If Pain Regimen Started, Initiate Bowel Regimen: NA, Screen for Nausea/Vomitting: Yes Code Status: 01/18/18 17:58 CODE [Resuscitation Status: Active] [RES] Routine Comment: Resuscitation Status: [id number] - Labs CBC & Chem 7: 01/23/18 03:58 01/23/18 03:58 Labs: Laboratory Results - last 24 hr 01/22/18 01/22/18 01/23/18 06:11 15:47 03:58 WBC 3.9 L RBC 2.62 L Hgb 8.4 L Hct 25.6 L MCV 97.7 MCH 32.1 MCHC 32.8 RDW 18.6 H Plt Count 13 L* MPV 13.3 H Immature Gran % 14.0 H Seg Neutrophils % 60.0 64.3 Band Neutrophils % 14.0 H Lymphocytes % 16.0 10.9 Monocytes % 6.0 7.5 Eosinophils % 2.8 Basophils % 0.5 Metamyelocytes % 2.0 H Myelocytes % 2.0 H Neutrophils # 2.5 2.5 Lymphocytes # 0.5 L 0.4 L Monocytes # 0.2 0.3 Eosinophils # 0.1 Basophils # 0.0 Nucleated RBCs/100 WBC 2.8 H Reactive Lymphocytes Present A Platelet Estimate Marked Decrease L Decreased L Immature Plt Fraction 5.9 Sodium Potassium Chloride Carbon Dioxide BUN Creatinine Est GFR ( Amer) Est GFR (Non-Af Amer) BUN/Creatinine Ratio Glucose Calculated Osmolality Calcium Vancomycin Trough 14.2 01/23/18 03:58 WBC RBC Hgb Hct MCV MCH MCHC RDW Plt Count MPV Immature Gran % Seg Neutrophils % Band Neutrophils % Lymphocytes % Monocytes % Eosinophils % Basophils % Metamyelocytes % Myelocytes % Neutrophils # Lymphocytes # Monocytes # Eosinophils # Basophils # Nucleated RBCs/100 WBC Reactive Lymphocytes Platelet Estimate Immature Plt Fraction Sodium 138 Potassium 3.7 Chloride 102 Carbon Dioxide 30 H BUN 47 H Creatinine 0.77 Est GFR ( Amer) > 60 Est GFR (Non-Af Amer) > 60 BUN/Creatinine Ratio 61 H Glucose 111 H Calculated Osmolality 299 Calcium 8.0 L Vancomycin Trough - ABG Interpretation ABG results: PT/INR, D-dimer PT 18.5 Seconds (9.4-12.1) H 01/15/18 21:34 Consult Discharge Plan - Plan Referrals: Lynne Kim MD [Primary Care Provider] -
--- NOTE | 2018-01-23 16:51 | Internal Med Progress Note ---
Date of Encounter: 01/23/18 Time of Encounter: 16:51 - Assessment and plan (1) HCAP (healthcare-associated pneumonia) Current Visit: Yes Status: Acute (2) COPD exacerbation Current Visit: No Status: Acute (3) PAF (paroxysmal atrial fibrillation) Current Visit: No Status: Acute (4) HTN (hypertension) Current Visit: No Status: Chronic Qualifiers: Hypertension type: essential hypertension Qualified Code(s): I10 - Essential (primary) hypertension - Subjective Interval history: Assessment and plan (1) Acute and chronic respiratory failure Patient with HCAP, COPD exacerbation and fluid overload seen on x-ray. 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 - bipap as needed - Aersol therapy Xopenex Q6H - Vancomycin, Levaquin, Zosyn - Transition to oral steroids today (2) HCAP (healthcare-associated pneumonia) Continue vancomycin, Zosyn, Levaquin Transition to PO (3) COPD exacerbation COPD with home O2 Albuterol Nebs Continue Symbicort (4) PAF (paroxysmal atrial fibrillation) No a/c due to severe thrombocytopenia (5) HTN (hypertension) BP now in lower normal to normal limits. Hold off antihypertensive medications for now. - Constitutional Vitals: Temp Pulse Resp BP Pulse Ox 98.6 F 110 16 119/66 93 01/23/18 15:16 01/23/18 15:16 01/23/18 16:21 01/23/18 15:16 01/23/18 16:21 General appearance: Present: cachectic, mild distress, A&O X 3 - Head Head exam: Present: atraumatic, normocephalic - Eye Eye exam: Present: PERRL, conjuntiva pink, sclera anicteric Pupils: Present: PERRL - Neck Neck exam general surgery: Present: supple, trachea midline. Absent: lymphadenopathy - Respiratory Respiratory exam: Present: CTAB. Absent: accessory muscle use, rales, rhonchi, wheezes - Cardiovascular Cardiovascular exam: Present: RRR, +S1, +S2. Absent: diastolic murmur, gallop, rubs, systolic murmur - GI/Abdominal GI/Abdominal exam: Present: normal bowel sounds, soft, no peritoneal signs. Absent: distended, tenderness - Extremities Exam Extremities exam: Present: warm, radial pulses palpable and symmetrical. Absent : calf tenderness, cyanotic, pedal edema - Neurological Exam Neurological exam: Present: CN II-XII intact, oriented X3, no focal deficits. Absent: pronater drift, facial droop, speech deficit - Skin Skin exam: Present: dry, intact Internal Medicine: Result - Labs CBC & Chem 7: 01/23/18 03:58 01/23/18 03:58 Labs: Short CBC 01/23/18 Range/Units 03:58 WBC 3.9 L (4.3-11.1) K/mcL Hgb 8.4 L (12.9-16.9) g/dL Hct 25.6 L (37.5-50.1) % Plt Count 13 L* (140-400) K/mcL Neutrophils # 2.5 (1.6-8.9) K/mcL BMP 01/23/18 03:58 Sodium 138 Potassium 3.7 Chloride 102 Carbon Dioxide 30 H BUN 47 H Creatinine 0.77 Glucose 111 H Calcium 8.0 L - ABG Interpretation ABG results: PT/INR, D-dimer PT 18.5 Seconds (9.4-12.1) H 01/15/18 21:34 - VTE Documentation of Mechanical Device: Intermittent pneumatic compression device Consult Discharge Plan - Plan Referrals: Lynne Kim MD [Primary Care Provider] -
[2018-01-23] MEDS: Melatonin 3 MG TABLET PO PRN (20:03)
[2018-01-23] MEDS: Latanoprost 2.5 ML BOTTLE BOTH EYES SCH (20:03)
[2018-01-23] MEDS ORDERED: levoFLOXacin 750 MG TABLET PO SCH (21:00)
[2018-01-24 03:21] LABS: Hematocrit 24.7 % (37.5-50.1); Hemoglobin 7.9 g/dL (12.9-16.9)
[2018-01-24 03:23] LABS: Basophils % 0.3 %; Eosinophils # 0.1 K/mcL (0.0-0.6); Eosinophils % 1.9 %; Immature Granulocytes % 11.9 % (0-4); Immature Platelets 4.5 % (1.1-6.1); Lymphocytes # 0.3 K/mcL (0.6-4.6); Lymphocytes % 10.1 %; Mean Corpuscular Hemoglobin 31.2 pg (28.0-33.3); Mean Corpuscular Volume 97.6 fL (83.0-100.0); Mean Platelet Volume 12.1 fL (9.4-12.4); Monocytes # 0.2 K/mcL (0.0-1.3); Monocytes % 6.3 %; Neutrophils # 2.2 K/mcL (1.6-8.9); Nucleated Red Blood Cells 1.6 /100 WBC (0); Red Blood Count 2.53 M/mcL (4.19-5.50); Red Cell Distribution Width 18.2 % (11.5-14.5); Segmented Neutrophils % 69.5 %
[2018-01-24 03:36] LABS: BUN/Creatinine Ratio 52 (6-26); Blood Urea Nitrogen 44 mg/dL (8-23); Calcium 8.2 mg/dL (8.6-10.3); Carbon Dioxide 30 mEq/L (23-29); Chloride 103 mEq/L (98-107); Glucose 124 mg/dL (70-105); Osmolality,Calculated 299 (280-300); Potassium 4.1 mEq/L (3.5-5.1); Sodium 138 mEq/L (136-145); eGFR For African Americans > 60 (> 60); eGFR For Non-African Americans > 60 (> 60)
[2018-01-24] MEDS: Levalbuterol Neb 1.25 MG/3 ML IH SCH ×4 (03:41→22:35)
[2018-01-24 03:54] LABS: Platelet Count 8 K/mcL (140-400); Platelet Estimate Marked Decrease (Normal)
[2018-01-24 03:55] LABS: Anisocytosis 1+ (Not Present); Macrocytosis Present (Not Present)
[2018-01-24] MEDS: Piperacillin/Tazobactam 3.375 GM in 0.9 % Sodium Chloride Mini Bag 100 ML IVPB SCH ×3 (05:25→20:55)
[2018-01-24] MEDS ORDERED: 0.9 % Sodium Chloride 500 ML ONE (08:21)
--- NOTE | 2018-01-24 09:11 | Palliative Progress Note ---
Date of Encounter: 01/24/18 Time of Encounter: 08:50 - Assessment and plan (1) Pancytopenia Current Visit: No Status: Acute Assessment and plan: Continued monitoring completed by Oncology. Platelet count down to 8 today, patient receiving platelet transfusion at time of assessment. (2) Generalized weakness Current Visit: No Status: Acute Assessment and plan: Patient continued weakness and requires assistance with ADLs, and repositioning in bed. PT/OT to continue working with patient. (3) HCAP (healthcare-associated pneumonia) Current Visit: Yes Status: Acute Assessment and plan: Lung CTAB. Continued treatment on Vancomycin, Zosyn, and Levaquin as ordered; internal medicine note transitioning to PO Antibiotics and Steroids. (4) Debility Current Visit: Yes Status: Acute Assessment and plan: Inability to care for self. PT and OT to work with patient. (5) Generalized pain Current Visit: Yes Status: Acute Assessment and plan: Patient ordered [place], no doses administered in the last 24 hours. Denies pain at time of assessment. (6) Counseling regarding advanced care planning and goals of care Current Visit: Yes Status: Acute Assessment and plan: Discussed plan of care at discharge. Patient and family agree for patient to be discharged to [facility] for rehabilitation. SW following. Palliative care will continue to follow patient at a distance, until further services are needed or patient discharged. (7) Anxiety Current Visit: Yes Status: Acute Assessment and plan: Denies anxiety at time of assessment. Patient is ordered Xanax PO for anxiety, no doses in last 24 hours. - Time Spent With Patient Total time spent is greater than 50% in coordination of care (as documented) at patient's floor/unit and/or counseling patient: - Subjective Interval history: Patient discussing meal plans for the next day with nurse on arrival, in good spirits. Is alert and oriented times three. No family present at bedside. Denies pain and anxiety. Reports family meeting held yesterday evening and has decided to be transferred to [facility] for rehabilitation on discharge. Does report continued dyspnea with activities. Receiving platelet transfusion at this time. Patient has not taken oral anxiety medication or pain medication for greater than 24 hours. - Constitutional Vitals: Abnormal lab results WBC 3.2 K/mcL (4.3-11.1) L 01/24/18 03:01 RBC 2.53 M/mcL (4.19-5.50) L 01/24/18 03:01 Hgb 7.9 g/dL (12.9-16.9) L 01/24/18 03:01 Hct 24.7 % (37.5-50.1) L 01/24/18 03:01 RDW 18.2 % (11.5-14.5) H 01/24/18 03:01 Plt Count 8 K/mcL (140-400) L* 01/24/18 03:01 Immature Gran % 11.9 % (0-4) H 01/24/18 03:01 Band Neutrophils % 14.0 % (0-4) H 01/22/18 06:11 Metamyelocytes % 2.0 % (0) H 01/22/18 06:11 Myelocytes % 2.0 % (0) H 01/22/18 06:11 Lymphocytes # 0.3 K/mcL (0.6-4.6) L 01/24/18 03:01 Nucleated RBCs/100 WBC 1.6 /100 WBC (0) H 01/24/18 03:01 Reactive Lymphocytes Present (Not Present) A 01/23/18 03:58 Toxic Granulation Present (Not Present) A 01/20/18 05:40 Platelet Estimate Marked Decrease (Normal) L 01/24/18 03:01 Polychromasia 1+ (Not Present) A 01/20/18 05:40 Anisocytosis 1+ (Not Present) A 01/24/18 03:01 Macrocytosis Present (Not Present) A 01/24/18 03:01 PT 18.5 Seconds (9.4-12.1) H 01/15/18 21:34 Carbon Dioxide 30 mEq/L (23-29) H 01/24/18 03:01 BUN 44 mg/dL (8-23) H 01/24/18 03:01 BUN/Creatinine Ratio 52 (6-26) H 01/24/18 03:01 Glucose 124 mg/dL (70-105) H 01/24/18 03:01 Calcium 8.2 mg/dL (8.6-10.3) L 01/24/18 03:01 Urine Blood Moderate (Negative) H 01/15/18 22:10 Urine Microscopic RBC 30-50 per hpf (0-3) H 01/15/18 22:10 Ur Squamous Epith Cells Many per lpf (None-Few) H 01/15/18 22:10 - Head Head exam: Present: normal inspection, normocephalic - Eye Eye exam: Present: normal appearance - ENT ENT exam: Present: mucous membranes dry - Neck Neck exam: Present: full ROM, normal inspection - Respiratory Respiratory exam: Present: CTAB Additional comments: Dyspnea with exertion, accessory muscles utilized only during activities. - Cardiovascular Cardiovascular exam: Present: irregular rhythm, +S1, +S2 - GI/Abdominal GI/Abdominal exam: Present: normal bowel sounds, soft. Absent: tenderness - Rectal Rectal exam: Present: deferred - Neurological Exam Neurological exam: Present: alert, oriented X3 - Psychiatric Psychiatric exam: Present: normal affect, normal mood. Absent: anxious - Skin Skin exam: Present: dry, pallor, warm. Absent: cyanosis, diaphoretic Palliative Quality Palliative Quality: Screen for Code Status: Yes, Screen for Goals of Care: Yes, Screen for Pain: Yes, If Pain Regimen Started, Initiate Bowel Regimen: NA, Screen for Nausea/Vomitting: Yes Code Status: 01/18/18 17:58 CODE [Resuscitation Status: Active] [RES] Routine Comment: Resuscitation Status: [id number] - Labs CBC & Chem 7: 01/24/18 03:01 01/24/18 03:01 Labs: Laboratory Results - last 24 hr 01/24/18 01/24/18 01/24/18 03:01 03:01 05:47 WBC 3.2 L RBC 2.53 L Hgb 7.9 L Hct 24.7 L MCV 97.6 MCH 31.2 MCHC 32.0 RDW 18.2 H Plt Count 8 L* MPV 12.1 Immature Gran % 11.9 H Seg Neutrophils % 69.5 Lymphocytes % 10.1 Monocytes % 6.3 Eosinophils % 1.9 Basophils % 0.3 Neutrophils # 2.2 Lymphocytes # 0.3 L Monocytes # 0.2 Eosinophils # 0.1 Basophils # 0.0 Nucleated RBCs/100 WBC 1.6 H Platelet Estimate Marked Decrease L Immature Plt Fraction 4.5 Anisocytosis 1+ A Macrocytosis Present A Sodium 138 Potassium 4.1 Chloride 103 Carbon Dioxide 30 H BUN 44 H Creatinine 0.84 Est GFR ( Amer) > 60 Est GFR (Non-Af Amer) > 60 BUN/Creatinine Ratio 52 H Glucose 124 H Calculated Osmolality 299 Calcium 8.2 L Blood Type A POSITIVE Antibody Screen NEGATIVE - ABG Interpretation ABG results: PT/INR, D-dimer PT 18.5 Seconds (9.4-12.1) H 01/15/18 21:34 Consult Discharge Plan - Plan Referrals: Lynne Kim MD [Primary Care Provider] -
[2018-01-24] MEDS: Budesonide/Formoterol 160/4.5 MDI IH SCH ×2 (10:51→22:35)
[2018-01-24] MEDS: Tiotropium 18 MCG inhalation IH SCH (10:51)
[2018-01-24] MEDS: predniSONE 20 MG TABLET PO SCH (11:24)
[2018-01-24] MEDS: Cholecalciferol (D-3) 1,000 UNIT TABLET PO SCH (11:25)
[2018-01-24] MEDS: *HR* HYDROcodone/Acet 5/325 mg TABLET PO PRN (11:29)
[2018-01-24] MEDS: Nystatin SUSP 5 ML UD.LIQ PO SCH ×4 (11:30→20:58)
[2018-01-24] MEDS: ALPRAZolam 0.25 MG TABLET PO PRN (15:11)
--- NOTE | 2018-01-24 17:29 | Oncology Inp Progress Note ---
Date of Encounter: 01/24/18 Time of Encounter: 15:00 (1) Acute myeloid leukemia Current Visit: Yes Status: Acute Assessment and plan: New diagnosis of acute myeloid leukemia, thrombocytopenia and anemia requiring transfusion support, history of COPD, prior history of lung cancer, admitted with shortness of breath status post transfusion, antibiotics for bilateral pneumonia. Per pathology patient has complex karyotype, which would imply poor prognosis. We will obtain molecular studies, and bone marrow/peripheral blood for IDH1, IDH2 and FLT3 mutations. Prior discussions with Dr. Jones regarding hypomethylating agent treatment with him vs hospice. 01/24/18: Discussed options of continued transfusions or rehab with goal to gain strength to receive treatment in future vs. goal of hospice with patient and patients today. At this time he continues to wish to receive further tranfusional support with blood products along with antibiotic treatment for infection. His states she is unable to care for him at home in this state and he is planned to go to SNF/ECF. At this time he is too frail to receive hypomethylating agent and will need time to rehab and recover from acute infection. He needed platelet transfusion today for platelet count of 8. He has poor venous access and if plan is for patient to continue to receive transfusional support he will need superintendent container terminal venous access placement, would recommend PICC line if goal continues to be that he wishes to receive superintendent container terminal transfusions. He understands that he has a poor prognosis given his complex karyotype, his blood counts will not improve without treatment for which he is currently too frail to receive. He will need labs draws multiple times per week, every day to every other day, and likely require multiple transfusions of blood products weekly. The patient and patients verbalize understanding of this, but I believe they may underestimate the gravity of the situation and that this approach will greatly affect his quality of life. Will continue to discuss with patient and patients tomorrow. Hospice would appear to be a reasonable decision, however, this decision is ultimately up to patient to decide. Transfuse to keep Plt>10k, PRBCs to keep Hgb 7-8g. ANC s nl. He does not want intubation in case of cardiac arrest/DNI, DNR. Qualifiers: Qualified Code(s): C92.00 - Acute myeloblastic leukemia, not having achieved remission Oncology: Subj Interval history: Mr. Smart is resting in bed with his at bedside. He reports that his pain is controlled. SOB stable. Therapy is in room and planning to assist patient to ambulate with a goal of 15 feet. He is tolerating activity poorly due to tachycardia. - Constitutional Vitals: Vital Signs Temp Pulse Resp BP Pulse Ox 01/24/18 16:15 16 100 01/24/18 15:13 98.1 F 114 18 106/53 100 01/24/18 11:58 96 01/24/18 11:54 98.3 F 01/24/18 11:21 97.7 F 122 20 109/49 100 01/24/18 11:00 116 18 109/49 100 01/24/18 10:51 16 100 01/24/18 08:43 97.4 F L 110 22 101/60 100 01/24/18 08:28 96.6 F L 99 20 114/59 100 01/24/18 07:00 97.6 F 83 18 106/63 100 01/24/18 05:11 97.7 F 116 22 114/66 93 01/24/18 03:42 17 89 01/23/18 22:26 17 96 01/23/18 21:00 97.5 F L 105 19 109/63 92 Intake and Output 01/24/18 01/24/18 01/24/18 07:59 15:59 23:59 Intake Total 100 / 100 1390 / 1390 Output Total 500 / 500 150 / 150 Balance -400 / -400 1240 / 1240 Intake: IV Fluids 100 / 100 100 / 100 Zosyn 3.375 GM In 0.9 % Sodium 100 / 100 100 / 100 Chloride (Mini-Bag +) 100 ML @ 25 mls/hr IVPB Q8H [facility] Rx#: [id number] Oral 0 / 0 840 / 840 Blood Product 450 / 450 Platelet Pheresis Lp Irr 1st 450 / 450 Unit [id number] Output: Urine 500 / 500 150 / 150 Other: Meal Lunch Percent of Meal Consumed 90% # Voids 1 General appearance: cooperative, no acute distress, thin, no febrile Exam: chronically ill appearing, cachectic - Head Head exam: Present: atraumatic - ENT ENT exam: Present: mucous membranes moist - Respiratory Respiratory exam: Present: decreased breath sounds, CTAB - Cardiovascular Cardiovascular exam: Present: RRR, +S1, +S2, tachycardia - GI/Abdominal GI/Abdominal exam: Present: normal bowel sounds, soft. Absent: tenderness - Extremities Exam Extremities exam: Present: normal inspection. Absent: calf tenderness - Neurological Exam Neurological exam: Present: alert, oriented X3, no focal deficits, strengths equal and symetr throughout - Psychiatric Psychiatric exam: Present: normal affect, normal mood - Skin Skin exam: Present: pallor, warm Oncology: Obj Data - Labs CBC & Chem 7: 01/25/18 03:44 01/25/18 03:44 Labs: Laboratory Results - last 24 hr - ABG Interpretation ABG results: PT/INR, D-dimer PT 18.5 Seconds (9.4-12.1) H 01/15/18 21:34 Consult Discharge Plan - Plan Referrals: Lynne Kim MD [Primary Care Provider] -
--- NOTE | 2018-01-24 17:30 | Internal Med Progress Note ---
Date of Encounter: 01/24/18 Time of Encounter: 17:29 - Subjective Interval history: Breathing more comfortably. Stephanie cp/juli. Assessment and plan (1) Acute and chronic respiratory failure Patient with HCAP, COPD exacerbation and fluid overload seen on x-ray. 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 - Bipap as needed - Xopenex Q6H - Vancomycin, Levaquin, Zosyn to be d/c'd tomorrow - Transition to oral steroids today (2) HCAP (healthcare-associated pneumonia) D/C all abx tommorow (vancomycin, Zosyn, Levaquin) following 10 days of ABx treatment (3) COPD exacerbation COPD with home O2 Albuterol Nebs Continue Symbicort Lungs sound clear (4) PAF (paroxysmal atrial fibrillation) Not rate controlled Increase Metoprolol to 50 BID No a/c due to severe thrombocytopenia (5) HTN (hypertension) BP now in lower normal to normal limits. Hold off antihypertensive medications for now. - Constitutional Vitals: Temp Pulse Resp BP Pulse Ox 98.1 F 114 16 106/53 100 01/24/18 15:13 01/24/18 15:13 01/24/18 16:15 01/24/18 15:13 01/24/18 16:15 General appearance: Present: cachectic, mild distress, A&O X 3, pleasant - Head Head exam: Present: atraumatic, normocephalic - Eye Eye exam: Present: PERRL, conjuntiva pink, sclera anicteric Pupils: Present: PERRL - Neck Neck exam general surgery: Present: supple, trachea midline. Absent: lymphadenopathy - Respiratory Respiratory exam: Absent: accessory muscle use, rales, rhonchi, wheezes - Cardiovascular Cardiovascular exam: Present: RRR, +S1, +S2. Absent: diastolic murmur, gallop, rubs, systolic murmur - GI/Abdominal GI/Abdominal exam: Present: normal bowel sounds, soft, no peritoneal signs. Absent: distended, guarding, rebound, tenderness - Extremities Exam Extremities exam: Present: warm, radial pulses palpable and symmetrical. Absent : calf tenderness, cyanotic, pedal edema - Neurological Exam Neurological exam: Present: CN II-XII intact, oriented X3, no focal deficits. Absent: pronater drift, facial droop, speech deficit - Skin Skin exam: Present: dry, intact Internal Medicine: Result - Labs CBC & Chem 7: 01/24/18 03:01 01/24/18 03:01 Labs: Short CBC 01/24/18 Range/Units 03:01 WBC 3.2 L (4.3-11.1) K/mcL Hgb 7.9 L (12.9-16.9) g/dL Hct 24.7 L (37.5-50.1) % Plt Count 8 L* (140-400) K/mcL Neutrophils # 2.2 (1.6-8.9) K/mcL BMP 01/24/18 03:01 Sodium 138 Potassium 4.1 Chloride 103 Carbon Dioxide 30 H BUN 44 H Creatinine 0.84 Glucose 124 H Calcium 8.2 L - ABG Interpretation ABG results: PT/INR, D-dimer PT 18.5 Seconds (9.4-12.1) H 01/15/18 21:34 - VTE Documentation of Mechanical Device: Intermittent pneumatic compression device Consult Discharge Plan - Plan Referrals: Lynne Kim MD [Primary Care Provider] -
[2018-01-24] MEDS: Latanoprost 2.5 ML BOTTLE BOTH EYES SCH (20:59)
[2018-01-25 03:55] LABS: Hemoglobin 8.2 g/dL (12.9-16.9)
[2018-01-25 03:57] LABS: Hematocrit 25.7 % (37.5-50.1); Immature Platelets 3.5 % (1.1-6.1); Mean Corpuscular HGB Conc 31.9 g/dL (31.6-35.5); Mean Corpuscular Volume 100.4 fL (83.0-100.0); Mean Platelet Volume 12.1 fL (9.4-12.4); Monocytes # 0.3 K/mcL (0.0-1.3); Nucleated Red Blood Cells 0.8 /100 WBC (0); Red Blood Count 2.56 M/mcL (4.19-5.50); Red Cell Distribution Width 18.1 % (11.5-14.5)
[2018-01-25] MEDS: Levalbuterol Neb 1.25 MG/3 ML IH SCH ×4 (04:01→22:53)
[2018-01-25 04:08] LABS: Platelet Count 22 K/mcL (140-400)
[2018-01-25 04:13] LABS: BUN/Creatinine Ratio 46 (6-26); Blood Urea Nitrogen 40 mg/dL (8-23); Calcium 8.3 mg/dL (8.6-10.3); Carbon Dioxide 27 mEq/L (23-29); Chloride 106 mEq/L (98-107); Glucose 115 mg/dL (70-105); Osmolality,Calculated 297 (280-300); Potassium 4.4 mEq/L (3.5-5.1); Sodium 138 mEq/L (136-145); eGFR For African Americans > 60 (> 60); eGFR For Non-African Americans > 60 (> 60)
[2018-01-25 04:30] LABS: Lymphocytes # 0.6 K/mcL (0.6-4.6); Neutrophils # 2.8 K/mcL (1.6-8.9); Platelet Estimate Marked Decrease (Normal)
[2018-01-25 04:31] LABS: Anisocytosis 2+ (Not Present); Macrocytosis Present (Not Present)
[2018-01-25] MEDS: Piperacillin/Tazobactam 3.375 GM in 0.9 % Sodium Chloride Mini Bag 100 ML IVPB SCH (05:24)
[2018-01-25] MEDS: Tiotropium 18 MCG inhalation IH SCH (08:01)
[2018-01-25] MEDS: Budesonide/Formoterol 160/4.5 MDI IH SCH ×2 (08:04→22:53)
[2018-01-25] MEDS ORDERED: Aminoglycoside Consult 1 EACH MC ONE (08:08)
[2018-01-25] MEDS: Cholecalciferol (D-3) 1,000 UNIT TABLET PO SCH (09:21)
[2018-01-25] MEDS: predniSONE 20 MG TABLET PO SCH (09:21)
--- NOTE | 2018-01-25 09:21 | Palliative Progress Note ---
Date of Encounter: 01/25/18 Time of Encounter: 09:00 - Assessment and plan (1) Pancytopenia Current Visit: No Status: Acute Assessment and plan: Continued monitoring completed by Oncology. Platelet improved to 22 today. (2) Generalized weakness Current Visit: No Status: Acute Assessment and plan: Patient continued weakness and requires assistance with ADLs, and repositioning in bed. PT/OT to continue working with patient. (3) HCAP (healthcare-associated pneumonia) Current Visit: Yes Status: Acute Assessment and plan: Lung CTAB. Per internal medicine note, treatment completed today and continue oral Steroids. (4) Debility Current Visit: Yes Status: Acute Assessment and plan: Inability to care for self. PT and OT to work with patient. Plan for discharge to transfer to [facility] for rehabilitation. (5) Generalized pain Current Visit: Yes Status: Acute Assessment and plan: Patient ordered Boles, 1 administered in the last 24 hours. Denies pain at time of assessment. (6) Counseling regarding advanced care planning and goals of care Current Visit: Yes Status: Acute Assessment and plan: Discussed plan of care at discharge: Patient is awaiting insurance and [facility] approval for transfer to complete rehabilitation. SW following. Palliative care will continue to follow patient at a distance, until further services are needed or patient discharged. (7) Anxiety Current Visit: Yes Status: Acute Assessment and plan: Reports some anxiety at time of assessment; denies need for intervention at this time. Patient is ordered Xanax PO for anxiety, 1 dose administered in last 24 hours. - Time Spent With Patient Total time spent is greater than 50% in coordination of care (as documented) at patient's floor/unit and/or counseling patient: - Subjective Interval history: Patient is resting with eyes closed upon arrival. Patient is alert and oriented 3; no family is present at bedside. Denies pain at present time; one dose of Boles in last 24 hours, reports controls pain well. Reports some anxiety regarding length of stay, but denies need for Xanax PO at this time; has taken one dose in the last 24 hours and reports allowed to rest well. Reports waiting on patient's son and SW to get "affairs squared away to get [facility]." Denies dyspnea at present time, no accessory muscles being utilized; does report continued dyspnea with activities. Reports last bowel movement yesterday; "I am pretty regular in that regard and if I miss a day it' s ok." - Constitutional Vitals: Abnormal lab results WBC 3.8 K/mcL (4.3-11.1) L 01/25/18 03:44 RBC 2.56 M/mcL (4.19-5.50) L 01/25/18 03:44 Hgb 8.2 g/dL (12.9-16.9) L 01/25/18 03:44 Hct 25.7 % (37.5-50.1) L 01/25/18 03:44 MCV 100.4 fL (83.0-100.0) H 01/25/18 03:44 RDW 18.1 % (11.5-14.5) H 01/25/18 03:44 Plt Count 22 K/mcL (140-400) L* D 01/25/18 03:44 Immature Gran % 11.9 % (0-4) H 01/24/18 03:01 Metamyelocytes % 2.0 % (0) H 01/22/18 06:11 Myelocytes % 2.0 % (0) H 01/25/18 03:44 Nucleated RBCs/100 WBC 0.8 /100 WBC (0) H 01/25/18 03:44 Reactive Lymphocytes Present (Not Present) A 01/23/18 03:58 Toxic Granulation Present (Not Present) A 01/20/18 05:40 Platelet Estimate Marked Decrease (Normal) L 01/25/18 03:44 Polychromasia 1+ (Not Present) A 01/20/18 05:40 Anisocytosis 2+ (Not Present) A 01/25/18 03:44 Macrocytosis Present (Not Present) A 01/25/18 03:44 PT 18.5 Seconds (9.4-12.1) H 01/15/18 21:34 BUN 40 mg/dL (8-23) H 01/25/18 03:44 BUN/Creatinine Ratio 46 (6-26) H 01/25/18 03:44 Glucose 115 mg/dL (70-105) H 01/25/18 03:44 Calcium 8.3 mg/dL (8.6-10.3) L 01/25/18 03:44 Urine Blood Moderate (Negative) H 01/15/18 22:10 Urine Microscopic RBC 30-50 per hpf (0-3) H 01/15/18 22:10 Ur Squamous Epith Cells Many per lpf (None-Few) H 01/15/18 22:10 - Head Head exam: Present: normal inspection - Eye Eye exam: Present: normal appearance, conjuntiva pink. Absent: periorbital swelling, periorbital tenderness - ENT ENT exam: Present: mucous membranes dry - Neck Neck exam: Present: full ROM, normal inspection - Respiratory Respiratory exam: Present: CTAB. Absent: accessory muscle use, respiratory distress - Cardiovascular Cardiovascular exam: Present: +S1, +S2 - GI/Abdominal GI/Abdominal exam: Present: normal bowel sounds, soft. Absent: tenderness - Rectal Rectal exam: Present: deferred - Neurological Exam Neurological exam: Present: alert, oriented X3 - Psychiatric Psychiatric exam: Present: normal affect, normal mood Palliative Quality Palliative Quality: Screen for Code Status: Yes, Screen for Goals of Care: Yes, Screen for Pain: Yes, If Pain Regimen Started, Initiate Bowel Regimen: NA, Screen for Nausea/Vomitting: Yes Code Status: 01/18/18 17:58 CODE [Resuscitation Status: Active] [RES] Routine Comment: Resuscitation Status: [id number] - Labs CBC & Chem 7: 01/25/18 03:44 01/25/18 03:44 Labs: Laboratory Results - last 24 hr 01/25/18 01/25/18 01/25/18 03:44 03:44 03:44 WBC 3.8 L RBC 2.56 L Hgb 8.2 L Hct 25.7 L MCV 100.4 H MCH 32.0 MCHC 31.9 RDW 18.1 H Plt Count 22 L* D MPV 12.1 Seg Neutrophils % 72.0 Band Neutrophils % 2.0 Lymphocytes % 16.0 Monocytes % 8.0 Myelocytes % 2.0 H Neutrophils # 2.8 Lymphocytes # 0.6 Monocytes # 0.3 Nucleated RBCs/100 WBC 0.8 H Platelet Estimate Marked Decrease L Immature Plt Fraction 3.5 Anisocytosis 2+ A Macrocytosis Present A Sodium 138 Potassium 4.4 Chloride 106 Carbon Dioxide 27 BUN 40 H Creatinine 0.87 Est GFR ( Amer) > 60 Est GFR (Non-Af Amer) > 60 BUN/Creatinine Ratio 46 H Glucose 115 H Calculated Osmolality 297 Calcium 8.3 L Vancomycin Trough 16.5 - ABG Interpretation ABG results: PT/INR, D-dimer PT 18.5 Seconds (9.4-12.1) H 01/15/18 21:34 Consult Discharge Plan - Plan Referrals: Lynne Kim MD [Primary Care Provider] -
[2018-01-25] MEDS: Nystatin SUSP 5 ML UD.LIQ PO SCH ×4 (09:22→22:33)
--- NOTE | 2018-01-25 11:32 | Physician Discharge Referral ---
ExtendedCare Referral Info Transfer To: [facility] Provider in Charge: Rc Provider in Charge after Transfer: Other Institutional Level of Care: Skilled - Diagnosis (1) COPD (chronic obstructive pulmonary disease) Priority: Primary Status: Acute (2) Acute and chronic respiratory failure Priority: Primary Status: Acute (3) HCAP (healthcare-associated pneumonia) Priority: Primary Status: Resolved (4) Acute myeloid leukemia Priority: Secondary Status: Acute (5) PAF (paroxysmal atrial fibrillation) Priority: Secondary Status: Chronic Prognosis: Poor Aware of Diagnosis: Patient, Family Aware of Prognosis: Patient, Family - Transfer Medications Prescriptions: Benzonatate [Tessalon] 200 mg PO TID PRN 7 Days #21 capsule PRN Reason: Cough Budesonide/Formoterol 160/4.5 [Symbicort 160/4.5] 2 puff IH BIDR 30 Days #1 inhaler Metoprolol [Lopressor] 50 mg PO BID 30 Days #60 tablet predniSONE [PredniSONE] 20 mg PO DAILY 30 Days #30 tablet Tamsulosin [Flomax] 0.4 mg PO DAILY 30 Days #30 capsule Tiotropium [Spiriva] 18 mcg IH DAILYR 30 Days #1 inh Home Medications: Simvastatin [Zocor] 40 mg PO HS 08/25/15 [History] Ipratropium/Albuterol Neb [Duoneb] 3 ml IH Q6HR PRN #120 inhsol 08/09/17 [Rx] Acetaminophen [Tylenol] 500 mg PO BID 09/15/17 [History] Cholecalciferol (Vitamin D3) [Vitamin D3] 1,000 unit PO DAILY 10/11/17 [History] Oxygen 3 each .ROUTE AD 12/11/17 [History] Latanoprost [Xalatan] 1 drop OP HS 01/08/18 [History] Ipratropium [place] 1 spr NS AD 01/16/18 [History] Benzonatate [Tessalon] 200 mg PO TID PRN 7 Days #21 capsule 01/25/18 [Rx] Budesonide/Formoterol 160/4.5 [Symbicort 160/4.5] 2 puff IH BIDR 30 Days #1 inhaler 01/25/18 [Rx] Metoprolol [Lopressor] 50 mg PO BID 30 Days #60 tablet 01/25/18 [Rx] Tamsulosin [Flomax] 0.4 mg PO DAILY 30 Days #30 capsule 01/25/18 [Rx] Tiotropium [Spiriva] 18 mcg IH DAILYR 30 Days #1 inh 01/25/18 [Rx] predniSONE [PredniSONE] 20 mg PO DAILY 30 Days #30 tablet 01/25/18 [Rx] Allergies/Adverse Reactions: 3 Allergy/AdvReac Type Severity Reaction Status Date / Time No Known Allergies Allergy Verified 12/11/17 15:00 - Respiratory Orders Smoking Cessation: Smoking cessation has been advised. For more information, call the [place] Tobacco Quit Line at 2-998-UOBE-NOW. - Mobility Orders Chair - Rehabiliation Orders Rehab Potential: Poor CERTIFICATION: I certify that the transfer of the above named patient to an Extended Care Facility is necessary for the continuing treatment of the diagnosis listed. The above information is true and accurate reflection of patient's current condition. Confidential - Redisclosure prohibited without a patient's written consent.
--- NOTE | 2018-01-25 11:56 | Discharge Summary ---
Orders not resulted at time of discharge: Pending orders 01/25/18 12:00 PLTS [Platelet Count] [HEME] Routine 01/26/18 04:00 BMP [Basic Metabolic Panel] AM 0400 Complete Blood Count [HEME] AM 0400 01/27/18 04:00 BMP [Basic Metabolic Panel] AM 0400 Complete Blood Count [HEME] AM 0400 01/28/18 04:00 BMP [Basic Metabolic Panel] AM 0400 Complete Blood Count [HEME] AM 0400 01/29/18 04:00 BMP [Basic Metabolic Panel] AM 0400 Complete Blood Count [HEME] AM 0400 Date of Encounter: 01/25/18 Time of Encounter: 11:48 - Discharge Diagnosis (1) COPD (chronic obstructive pulmonary disease) Priority: Primary Status: Acute Qualifiers: COPD type: unspecified COPD Qualified Code(s): J44.9 - Chronic obstructive pulmonary disease, unspecified (2) Acute and chronic respiratory failure Priority: Primary Status: Acute Qualifiers: Respiratory failure complication: hypoxia Qualified Code(s): J96.21 - Acute and chronic respiratory failure with hypoxia (3) HCAP (healthcare-associated pneumonia) Priority: Primary Status: Acute (4) Acute myeloid leukemia Priority: Secondary Status: Acute Qualifiers: Leukemia Active/Remission status: without remission Qualified Code(s): C92.00 - Acute myeloblastic leukemia, not having achieved remission (5) PAF (paroxysmal atrial fibrillation) Priority: Secondary Status: Chronic Hospital course: 87 year 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 The patient had initial PET uptake positive in the precarinal/subcarinal lymph nodes as well as in the mediastinum , likely two separate primaries. S/P carbo/taxol q wkly doses, RT to mediastinum through April/2014 with disease in remission was noted to have in lab works from 09/13/17 declined plt, macocytosis. B12, folate, SPEP normal. LDH normal. Reactive lymphs PS. On 12/11/17CBCD steadily declined plt. Pt has bleeding nostrils on and off. He was initially not agreeable to BM bx. A biopsy was obtained during his in patient stay 01/07 showed acute leukemia, with myeloid blasts in BM--24% in aspirate and flow showed 30% blasts. He is hospitalized for fatigue, SOB, Rx of pneumonia.He is cytopenic with plt ~10-20 needing plt and PRBCs. He has decided for possible treatnent of his AML. He discussed bx results, prognosis in detail and plan further care with medical oncology. He has poor venous access and will need continued blood draws/transfusions. He platelet count is too low for PICC line placement, he has the option for PowerGlide, however, this cannot be used for cleaning associate blood draws and line may stay in use as long as it is clinically working well. Patient ultimately decided to wait for PowerGlide placement, this may be placed on outpatient basis if needed. He understands that he has a poor prognosis given his complex karyotype, his blood counts will not improve without treatment for which he is currently too frail to receive. He will need labs draws multiple times per week, every day to every other day, and likely require multiple transfusions of blood products weekly. Following discussion with patient and patients family, they verbalize understanding of this and wish to pursue this goal. Hospice was discussed the with patient, letting him know this option is available and will continue to be available to him should he want it at anytime, he however, continues to want to pursue any type of treatment to "keep him alive as long as possible". He has a close follow up arranged with Dr. Jones. Transfussion goals are as follows; keep Plt>10k (inpatient), goal plt >20k as outpatient, PRBCs to keep Hgb 7-8g. He does not want intubation in case of cardiac arrest/DNI, DNR. Discharge discussed with: patient, family, nurse, case management, data virtualization consultant Time spent discussing smoking cessation with patient: more than 10 minutes - Time Spent with Patient Total time spent providing and/or coordinating discharge services: Greater than 30 minutes - Discharge Medications Prescriptions: Benzonatate [Tessalon] 200 mg PO TID PRN 7 Days #21 capsule PRN Reason: Cough Budesonide/Formoterol 160/4.5 [Symbicort 160/4.5] 2 puff IH BIDR 30 Days #1 inhaler Metoprolol [Lopressor] 50 mg PO BID 30 Days #60 tablet predniSONE [PredniSONE] 20 mg PO DAILY 30 Days #30 tablet Tamsulosin [Flomax] 0.4 mg PO DAILY 30 Days #30 capsule Tiotropium [Spiriva] 18 mcg IH DAILYR 30 Days #1 inh Home Medications: Simvastatin [Zocor] 40 mg PO HS 08/25/15 [History] Ipratropium/Albuterol Neb [Duoneb] 3 ml IH Q6HR PRN #120 inhsol 08/09/17 [Rx] Acetaminophen [Tylenol] 500 mg PO BID 09/15/17 [History] Cholecalciferol (Vitamin D3) [Vitamin D3] 1,000 unit PO DAILY 10/11/17 [History] Oxygen 3 each .ROUTE AD 12/11/17 [History] Latanoprost [Xalatan] 1 drop OP HS 01/08/18 [History] Ipratropium Melvin 1 spr NS AD 01/16/18 [History] Benzonatate [Tessalon] 200 mg PO TID PRN 7 Days #21 capsule 01/25/18 [Rx] Budesonide/Formoterol 160/4.5 [Symbicort 160/4.5] 2 puff IH BIDR 30 Days #1 inhaler 01/25/18 [Rx] Metoprolol [Lopressor] 50 mg PO BID 30 Days #60 tablet 01/25/18 [Rx] Tamsulosin [Flomax] 0.4 mg PO DAILY 30 Days #30 capsule 01/25/18 [Rx] Tiotropium [Spiriva] 18 mcg IH DAILYR 30 Days #1 inh 01/25/18 [Rx] predniSONE [PredniSONE] 20 mg PO DAILY 30 Days #30 tablet 01/25/18 [Rx] Allergies/Adverse Reactions: 3 Allergy/AdvReac Type Severity Reaction Status Date / Time No Known Allergies Allergy Verified 12/11/17 15:00 Date of admission: 01/15/18 23:02 Primary care physician: Lynne Kim, Consults: 01/16/18 16:57 Consult to Oncology [CONS] Routine Consulting Provider: [facility] Reason for Consult: 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 Evaluate, develop and implement POC Consult to Physical Therapy [CONS] Routine Comment: Evaluate, develop and implement POC Reason for Consult: Patient medically stable. Disposition planning. Therapy - weakness in bed. 01/18/18 17:59 Consult to Palliative Care [CONS] Routine Comment: Consulting Provider: Palliative Care [facility] Reason for Consult: Goals of care Call Completed: No - Constitutional Vitals: Temp Pulse Resp BP Pulse Ox 97.7 F 87 18 106/61 91 01/25/18 11:36 01/25/18 11:36 01/25/18 11:36 01/25/18 11:36 01/25/18 11:36 General appearance: Present: cachectic, mild distress, A&O X 3, pleasant - Head Head exam: Present: atraumatic, normocephalic - Eye Eye exam: Present: EOMI, PERRL, conjuntiva pink, sclera anicteric Pupils: Present: PERRL - Neck Neck exam general surgery: Present: supple, trachea midline. Absent: lymphadenopathy - Respiratory Respiratory exam: Present: CTAB. Absent: accessory muscle use, rales, rhonchi, wheezes - Cardiovascular Cardiovascular exam: Present: RRR, +S1, +S2. Absent: diastolic murmur, gallop, rubs, systolic murmur - GI/Abdominal GI/Abdominal exam: Present: normal bowel sounds, soft, no peritoneal signs. Absent: distended, tenderness - Extremities Exam Extremities exam: Present: warm, radial pulses palpable and symmetrical. Absent : calf tenderness, cyanotic, pedal edema - Neurological Exam Neurological exam: Present: CN II-XII intact, oriented X3, no focal deficits. Absent: pronater drift, facial droop, speech deficit - Psychiatric Psychiatric exam: Present: normal affect, normal mood - Skin Skin exam: Present: dry, intact - Patient Status Disposition: Still a Patient Condition: Fair Functional capacity at discharge: uses cane/walker Overall status at discharge: patient is not back to baseline - Discharge Instructions Follow Up With: Lynne Kim MD [Primary Care Provider] - (pcp has been requested) - Diet and Activity Activity: as per physical therapy - VTE Documentation of Mechanical Device: Intermittent pneumatic compression device
--- NOTE | 2018-01-25 13:58 | Oncology Inp Progress Note ---
Date of Encounter: 01/25/18 Time of Encounter: 13:58 (1) Acute myeloid leukemia Current Visit: Yes Status: Acute Assessment and plan: New diagnosis of acute myeloid leukemia, thrombocytopenia and anemia requiring transfusion support, history of COPD, prior history of lung cancer, admitted with shortness of breath status post transfusion, antibiotics for bilateral pneumonia. Per pathology patient has complex karyotype, which would imply poor prognosis. We will obtain molecular studies, and bone marrow/peripheral blood for IDH1, IDH2 and FLT3 mutations. Prior discussions with Dr. Jones regarding hypomethylating agent treatment with him vs hospice. 01/25/18: Patient continues to wish to receive further tranfusional support with blood products along with the hopes that he can regain strength to begin Decitabine treatments in near future. His states she is unable to care for him at home in this state and he is planned to go to SNF/ECF, he is awaiting placement at [facility]. In current state he is too frail to receive Decitabine treatments and will need time to rehab and recover from acute infection. He has been working with therapy in bed and able to sit on side of bed today, he is still too weak to stand, let alone ambulate, at this time. His platelet count is at 16 as of around noon. He has poor venous access and will need continued blood draws/transfusions. He platelet count is too low for PICC line placement, he has the option for PowerGlide, however, this cannot be used for exterminator blood draws and line may stay in use as long as it is clinically working well. Patient ultimately decided to wait for PowerGlide placement, this may be placed on outpatient basis if needed. He understands that he has a poor prognosis given his complex karyotype, his blood counts will not improve without treatment for which he is currently too frail to receive. He will need labs draws multiple times per week, every day to every other day, and likely require multiple transfusions of blood products weekly. Following discussion with patient and patients family, they verbalize understanding of this and wish to pursue this goal. I did discuss the Hospice philosophy with patient, letting him know this option is available and will continue to be available to him should he want it at anytime, he however, continues to want to pursue any type of treatment to "keep him alive as long as possible". He has a close follow up arranged with Dr. Jones. Transfuse to keep Plt>10k (inpatient), goal plt >20k as outpatient, PRBCs to keep Hgb 7-8g. He does not want intubation in case of cardiac arrest/DNI, DNR. Qualifiers: Leukemia Active/Remission status: without remission Qualified Code(s): C92.00 - Acute myeloblastic leukemia, not having achieved remission Oncology: Subj Interval history: Mr. Smart is resting comfortably in bed. He appears fatigued today. Patients family at bedside. Discussed goals of care as detailed in assessment and plan. - Constitutional Vitals: Vital Signs Temp Pulse Resp BP Pulse Ox 01/25/18 11:36 97.7 F 87 18 106/61 91 01/25/18 08:04 20 94 01/25/18 07:51 97.6 F 95 20 133/89 93 01/25/18 05:11 97.6 F 95 19 124/84 95 01/25/18 04:01 20 100 01/25/18 00:00 97.6 F 87 22 104/62 92 01/24/18 22:36 20 100 01/24/18 21:00 97.9 F 110 19 106/53 100 01/24/18 16:15 16 100 01/24/18 15:13 98.1 F 114 18 106/53 100 Intake and Output 01/24/18 01/25/18 01/25/18 23:59 07:59 15:59 Intake Total 470 / 470 400 / 400 480 / 480 Output Total 0 / 0 1300 / 1300 200 / 200 Balance 470 / 470 -900 / -900 280 / 280 Intake: IV Fluids 350 / 350 100 / 100 Zosyn 3.375 GM In 0.9 % Sodium 100 / 100 100 / 100 Chloride (Mini-Bag +) 100 ML @ 25 mls/hr IVPB Q8H [facility] Rx#: [id number] Vancocin 750 MG In 0.9 % Sodium 250 / 250 Chloride 250 ML @ 250 mls/hr IVPB Q12H [facility] Rx#:[id number] Oral 120 / 120 300 / 300 480 / 480 Output: Urine 0 / 0 1300 / 1300 200 / 200 Other: Meal Lunch Percent of Meal Consumed 20% Stool Size Moderate Stool Consistency formed # Voids 1 # Bowel Movements 1 Weight 47.4 kg General appearance: cooperative, no acute distress, thin, no febrile Exam: chronically ill appearing, cachectic - Head Head exam: Present: atraumatic - ENT ENT exam: Present: mucous membranes dry - Respiratory Respiratory exam: Present: decreased breath sounds, CTAB. Absent: respiratory distress - Cardiovascular Cardiovascular exam: Present: RRR, +S1, +S2, tachycardia - GI/Abdominal GI/Abdominal exam: Present: normal bowel sounds, soft, tenderness - Extremities Exam Extremities exam: Present: normal inspection. Absent: calf tenderness - Neurological Exam Neurological exam: Present: alert, oriented X3, no focal deficits, strengths equal and symetr throughout - Psychiatric Psychiatric exam: Present: normal affect, normal mood - Skin Skin exam: Present: pallor, warm Oncology: Obj Data - Labs CBC & Chem 7: 01/25/18 12:14 01/25/18 03:44 - ABG Interpretation ABG results: PT/INR, D-dimer PT 18.5 Seconds (9.4-12.1) H 01/15/18 21:34 Consult Discharge Plan - Plan Referrals: Lynne Kim MD [Primary Care Provider] - (pcp has been requested) Prescriptions: Benzonatate [Tessalon] 200 mg PO TID PRN 7 Days #21 capsule PRN Reason: Cough Budesonide/Formoterol 160/4.5 [Symbicort 160/4.5] 2 puff IH BIDR 30 Days #1 inhaler Metoprolol [Lopressor] 50 mg PO BID 30 Days #60 tablet predniSONE [PredniSONE] 20 mg PO DAILY 30 Days #30 tablet Tamsulosin [Flomax] 0.4 mg PO DAILY 30 Days #30 capsule Tiotropium [Spiriva] 18 mcg IH DAILYR 30 Days #1 inh
[2018-01-25] MEDS: Latanoprost 2.5 ML BOTTLE BOTH EYES SCH (22:35)
[2018-01-26 01:38] LABS: Basophils % 0.3 %; Hemoglobin 7.7 g/dL (12.9-16.9)
[2018-01-26 01:40] LABS: Eosinophils # 0.1 K/mcL (0.0-0.6); Eosinophils % 2.7 %; Hematocrit 23.7 % (37.5-50.1); Immature Platelets 4.2 % (1.1-6.1); Lymphocytes # 0.4 K/mcL (0.6-4.6); Lymphocytes % 11.6 %; Mean Corpuscular HGB Conc 32.5 g/dL (31.6-35.5); Mean Corpuscular Hemoglobin 31.6 pg (28.0-33.3); Mean Corpuscular Volume 97.1 fL (83.0-100.0); Mean Platelet Volume 11.1 fL (9.4-12.4); Monocytes # 0.2 K/mcL (0.0-1.3); Monocytes % 6.5 %; Neutrophils # 2.6 K/mcL (1.6-8.9); Nucleated Red Blood Cells 1.4 /100 WBC (0); Red Blood Count 2.44 M/mcL (4.19-5.50); Red Cell Distribution Width 18.1 % (11.5-14.5); Segmented Neutrophils % 68.9 %
[2018-01-26 01:45] LABS: Platelet Count 11 K/mcL (140-400)
[2018-01-26 01:51] LABS: BUN/Creatinine Ratio 47 (6-26); Blood Urea Nitrogen 40 mg/dL (8-23); Calcium 8.5 mg/dL (8.6-10.3); Carbon Dioxide 28 mEq/L (23-29); Chloride 105 mEq/L (98-107); Glucose 120 mg/dL (70-105); Osmolality,Calculated 299 (280-300); Potassium 4.4 mEq/L (3.5-5.1); Sodium 139 mEq/L (136-145); eGFR For African Americans > 60 (> 60); eGFR For Non-African Americans > 60 (> 60)
[2018-01-26 01:57] LABS: Reactive Lymphocytes Present (Not Present)
[2018-01-26 01:58] LABS: Anisocytosis 1+ (Not Present); Hypochromasia Present (Not Present); Platelet Estimate Marked Decrease (Normal)
[2018-01-26] MEDS: Levalbuterol Neb 1.25 MG/3 ML IH SCH ×4 (04:05→21:43)
[2018-01-26] MEDS: predniSONE 20 MG TABLET PO SCH (10:01)
[2018-01-26] MEDS: Nystatin SUSP 5 ML UD.LIQ PO SCH ×4 (10:01→22:07)
[2018-01-26] MEDS: Cholecalciferol (D-3) 1,000 UNIT TABLET PO SCH (10:01)
[2018-01-26] MEDS: Budesonide/Formoterol 160/4.5 MDI IH SCH ×2 (10:43→21:43)
[2018-01-26] MEDS: Tiotropium 18 MCG inhalation IH SCH (10:43)
--- NOTE | 2018-01-26 14:59 | Internal Med Progress Note ---
Date of Encounter: 01/26/18 Time of Encounter: 14:59 - Assessment and plan (1) COPD (chronic obstructive pulmonary disease) Current Visit: No Status: Acute Qualifiers: COPD type: unspecified COPD Qualified Code(s): J44.9 - Chronic obstructive pulmonary disease, unspecified (2) Acute and chronic respiratory failure Current Visit: Yes Status: Acute Qualifiers: Respiratory failure complication: hypoxia Qualified Code(s): J96.21 - Acute and chronic respiratory failure with hypoxia (3) HCAP (healthcare-associated pneumonia) Current Visit: Yes Status: Acute (4) Acute myeloid leukemia Current Visit: Yes Status: Acute Qualifiers: Leukemia Active/Remission status: without remission Qualified Code(s): C92.00 - Acute myeloblastic leukemia, not having achieved remission (5) PAF (paroxysmal atrial fibrillation) Current Visit: No Status: Chronic - Subjective Interval history: A&O x3 and breathing comfortably Required platelet transfusion this am No signs of bleeding Assessment and plan (1) Acute and chronic respiratory failure Patient with HCAP, COPD exacerbation and fluid overload seen on x-ray. 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 - Bipap as needed - Xopenex Q6H - Off all antibiotics now - Continue PO steroids -Steroid taper after d/c (2) HCAP (healthcare-associated pneumonia) Completed 10 days of ABx treatment (3) COPD exacerbation COPD with home O2 Albuterol Nebs Continue Symbicort Lungs sound clear (4) PAF (paroxysmal atrial fibrillation) Not rate controlled Increase Metoprolol to 50 BID No anticoagulation due to severe thrombocytopenia (5) HTN (hypertension) BP now in lower normal to normal limits. Hold off antihypertensive medications for now. - Constitutional Vitals: Temp Pulse Resp BP Pulse Ox 98.2 F 89 18 108/59 95 01/26/18 07:00 01/26/18 07:00 01/26/18 07:00 01/26/18 07:00 01/26/18 07:00 General appearance: Present: cachectic, A&O X 3, pleasant, underweight - Head Head exam: Present: atraumatic, normocephalic - Eye Eye exam: Present: PERRL, conjuntiva pink, sclera anicteric Pupils: Present: PERRL - ENT ENT exam: Present: mucous membranes dry - Neck Neck exam general surgery: Present: supple, trachea midline. Absent: lymphadenopathy - Respiratory Respiratory exam: Present: CTAB. Absent: accessory muscle use, rales, rhonchi, wheezes - Cardiovascular Cardiovascular exam: Present: RRR, +S1, +S2. Absent: diastolic murmur, gallop, rubs, systolic murmur - GI/Abdominal GI/Abdominal exam: Present: normal bowel sounds, soft, no peritoneal signs. Absent: distended, tenderness - Extremities Exam Extremities exam: Present: warm, radial pulses palpable and symmetrical. Absent : calf tenderness, cyanotic, pedal edema - Neurological Exam Neurological exam: Present: CN II-XII intact, oriented X3, no focal deficits. Absent: pronater drift, facial droop, speech deficit - Skin Skin exam: Present: dry, intact Internal Medicine: Result - Labs CBC & Chem 7: 01/26/18 01:15 01/26/18 01:15 Labs: Short CBC 01/26/18 Range/Units 01:15 WBC 3.7 L (4.3-11.1) K/mcL Hgb 7.7 L (12.9-16.9) g/dL Hct 23.7 L (37.5-50.1) % Plt Count 11 L* (140-400) K/mcL Neutrophils # 2.6 (1.6-8.9) K/mcL BMP 01/26/18 01:15 Sodium 139 Potassium 4.4 Chloride 105 Carbon Dioxide 28 BUN 40 H Creatinine 0.85 Glucose 120 H Calcium 8.5 L - ABG Interpretation ABG results: PT/INR, D-dimer PT 18.5 Seconds (9.4-12.1) H 01/15/18 21:34 - VTE Documentation of Mechanical Device: Intermittent pneumatic compression device Consult Discharge Plan - Plan Referrals: Lynne Kim MD [Primary Care Provider] - (pcp has been requested) Prescriptions: Benzonatate [Tessalon] 200 mg PO TID PRN 7 Days #21 capsule PRN Reason: Cough Budesonide/Formoterol 160/4.5 [Symbicort 160/4.5] 2 puff IH BIDR 30 Days #1 inhaler Metoprolol [Lopressor] 50 mg PO BID 30 Days #60 tablet predniSONE [PredniSONE] 20 mg PO DAILY 30 Days #30 tablet Tamsulosin [Flomax] 0.4 mg PO DAILY 30 Days #30 capsule Tiotropium [Spiriva] 18 mcg IH DAILYR 30 Days #1 inh
[2018-01-26] MEDS ORDERED: 0.9 % Sodium Chloride 250 ML ONE (15:18)
[2018-01-26] MEDS: Melatonin 3 MG TABLET PO PRN (22:06)
[2018-01-26] MEDS: Latanoprost 2.5 ML BOTTLE BOTH EYES SCH (22:06)
[2018-01-27 01:04] LABS: Hematocrit 22.8 % (37.5-50.1)
[2018-01-27 01:06] LABS: Eosinophils # 0.1 K/mcL (0.0-0.6); Hemoglobin 7.4 g/dL (12.9-16.9); Immature Granulocytes % 10.2 % (0-4); Immature Platelets 1.3 % (1.1-6.1); Lymphocytes # 0.3 K/mcL (0.6-4.6); Lymphocytes % 8.3 %; Mean Corpuscular HGB Conc 32.5 g/dL (31.6-35.5); Mean Corpuscular Hemoglobin 31.4 pg (28.0-33.3); Mean Corpuscular Volume 96.6 fL (83.0-100.0); Mean Platelet Volume 8.8 fL (9.4-12.4); Monocytes # 0.2 K/mcL (0.0-1.3); Monocytes % 6.6 %; Neutrophils # 2.6 K/mcL (1.6-8.9); Nucleated Red Blood Cells 1.4 /100 WBC (0); Red Blood Count 2.36 M/mcL (4.19-5.50); Red Cell Distribution Width 18.1 % (11.5-14.5); Segmented Neutrophils % 71.9 %
[2018-01-27 01:07] LABS: Platelet Count 51 K/mcL (140-400)
[2018-01-27 01:22] LABS: BUN/Creatinine Ratio 42 (6-26); Blood Urea Nitrogen 42 mg/dL (8-23); Calcium 8.4 mg/dL (8.6-10.3); Carbon Dioxide 28 mEq/L (23-29); Chloride 104 mEq/L (98-107); Glucose 113 mg/dL (70-105); Osmolality,Calculated 297 (280-300); Potassium 4.2 mEq/L (3.5-5.1); Sodium 138 mEq/L (136-145); eGFR For African Americans > 60 (> 60); eGFR For Non-African Americans > 60 (> 60)
[2018-01-27 01:40] LABS: Platelet Estimate Decreased (Normal); Reactive Lymphocytes Present (Not Present)
[2018-01-27] MEDS ORDERED: Levalbuterol Neb 1.25 MG/3 ML IH PRN (02:26)
--- NOTE | 2018-01-27 02:31 | Event Note ---
Date of Encounter: 01/27/18 Time of Encounter: 02:27 Called by RN for chest pain and tachycardia. By the time I arrived, patient was chest pain free. EKG showed ST-T depression anteriorly and repeat EKG was normal. Patient is asymptomatic now. Will order troponin, BMP, and Magnesium level and monitor closely.
[2018-01-27] MEDS ORDERED: *HR* Adenosine 6 MG/2 ML VIAL IVP ONE (02:45)
[2018-01-27] MEDS ORDERED: *HR* Metoprolol 5 MG/5 ML VIAL IVP ONE ×2 (02:59→03:04)
--- NOTE | 2018-01-27 03:24 | Event Note ---
Date of Encounter: 01/27/18 Time of Encounter: 02:42 Called back to patient bedside for recurrence of tachycardia. He had a narrow complex tachycardia with unstable BP. BP was 70/50's --> 60/40. I called a rapid response, pushed Adenosine 6 mg IVP rapidly, and patient returned to NSR with BP up to 100/60's. We then administered Lopressor 5 mg IV one time. He again had a short return of SVT about 10 minute later but it resolved spontaneously. I ordered a one time Lopressor 25 mg PO dose now. Labs are pending (BPM, Magneisum, and Troponin).
[2018-01-27 03:34] LABS: Troponin I 0.03 ng/mL (< 0.04)
[2018-01-27 03:36] LABS: BUN/Creatinine Ratio 39 (6-26); Blood Urea Nitrogen 39 mg/dL (8-23); Calcium 8.2 mg/dL (8.6-10.3); Carbon Dioxide 28 mEq/L (23-29); Chloride 106 mEq/L (98-107); Glucose 104 mg/dL (70-105); Magnesium 2.1 mg/dL (1.6-2.6); Osmolality,Calculated 296 (280-300); Potassium 4.1 mEq/L (3.5-5.1); Sodium 138 mEq/L (136-145); eGFR For African Americans > 60 (> 60); eGFR For Non-African Americans > 60 (> 60)
[2018-01-27] MEDS: predniSONE 20 MG TABLET PO SCH (09:14)
[2018-01-27] MEDS: Cholecalciferol (D-3) 1,000 UNIT TABLET PO SCH (09:15)
[2018-01-27] MEDS: Nystatin SUSP 5 ML UD.LIQ PO SCH ×4 (09:15→20:50)
[2018-01-27] MEDS: Budesonide/Formoterol 160/4.5 MDI IH SCH ×2 (11:42→21:46)
[2018-01-27] MEDS: Tiotropium 18 MCG inhalation IH SCH (11:43)
[2018-01-27] MEDS ORDERED: 0.9 % Sodium Chloride 250 ML IVC SCH (12:15)
[2018-01-27] MEDS ORDERED: 0.9 % Sodium Chloride 250 ML ONE (12:16)
[2018-01-27] MEDS: ALPRAZolam 0.25 MG TABLET PO PRN (14:02)
[2018-01-27] MEDS: Melatonin 3 MG TABLET PO PRN (20:41)
[2018-01-27] MEDS: Latanoprost 2.5 ML BOTTLE BOTH EYES SCH (20:42)
--- NOTE | 2018-01-27 22:33 | Internal Med Progress Note ---
Date of Encounter: 01/27/18 Time of Encounter: 08:10 - Assessment and plan (1) COPD (chronic obstructive pulmonary disease) Current Visit: Yes Status: Acute Qualifiers: COPD type: unspecified COPD Qualified Code(s): J44.9 - Chronic obstructive pulmonary disease, unspecified (2) Acute and chronic respiratory failure Current Visit: Yes Status: Acute Qualifiers: Respiratory failure complication: hypoxia Qualified Code(s): J96.21 - Acute and chronic respiratory failure with hypoxia (3) HCAP (healthcare-associated pneumonia) Current Visit: Yes Status: Acute (4) Acute myeloid leukemia Current Visit: Yes Status: Acute Qualifiers: Leukemia Active/Remission status: without remission Qualified Code(s): C92.00 - Acute myeloblastic leukemia, not having achieved remission (5) PAF (paroxysmal atrial fibrillation) Current Visit: No Status: Chronic - Subjective Interval history: Interval changes: 01/26/18: A&O x3 and breathing comfortably Required platelet transfusion this am No signs of bleeding 01/27/18: Early this am he went into SVT and was given 25 mg Lopressor This am rate controlld but hypotensive Required 250 ml fluid bolus to improve hypotension Despite changes above he was asx throughout Assessment and plan (1) Acute and chronic respiratory failure Patient with HCAP, COPD exacerbation and fluid overload seen on x-ray. 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 - Bipap as needed - Xopenex Q6H - Off all antibiotics now - Continue PO steroids -Steroid taper after d/c (2) HCAP (healthcare-associated pneumonia) Completed 10 days of ABx treatment (3) COPD exacerbation COPD with home O2 Albuterol Nebs Continue Symbicort Lungs sound clear (4) PAF (paroxysmal atrial fibrillation) Not rate controlled Increase Metoprolol to 50 BID No anticoagulation due to severe thrombocytopenia (5) HTN (hypertension) BP now in lower normal to normal limits. Hold off antihypertensive medications for now. - Constitutional Vitals: Temp Pulse Resp BP Pulse Ox 97.6 F 100 17 97/63 100 01/27/18 20:37 01/27/18 20:37 01/27/18 20:37 01/27/18 20:37 01/27/18 20:37 General appearance: Present: cachectic, A&O X 3, pleasant, underweight - Head Head exam: Present: atraumatic, normocephalic - Eye Eye exam: Present: PERRL, conjuntiva pink, sclera anicteric Pupils: Present: PERRL - Neck Neck exam general surgery: Present: supple, trachea midline. Absent: lymphadenopathy - Respiratory Respiratory exam: Present: CTAB. Absent: accessory muscle use, rales, rhonchi, wheezes - Cardiovascular Cardiovascular exam: Present: +S1, +S2, tachycardia. Absent: diastolic murmur, gallop, rubs, systolic murmur - GI/Abdominal GI/Abdominal exam: Present: normal bowel sounds, soft, no peritoneal signs. Absent: distended, tenderness - Extremities Exam Extremities exam: Present: warm. Absent: calf tenderness, cyanotic, pedal edema - Neurological Exam Neurological exam: Present: CN II-XII intact, oriented X3, no focal deficits. Absent: pronater drift, facial droop, speech deficit - Psychiatric Psychiatric exam: Present: normal affect, normal mood - Skin Skin exam: Present: dry, intact Internal Medicine: Result - Labs CBC & Chem 7: 01/27/18 00:37 01/27/18 02:56 Labs: Short CBC 01/27/18 Range/Units 00:37 WBC 3.6 L (4.3-11.1) K/mcL Hgb 7.4 L (12.9-16.9) g/dL Hct 22.8 L (37.5-50.1) % Plt Count 51 L D (140-400) K/mcL Neutrophils # 2.6 (1.6-8.9) K/mcL BMP 01/27/18 01/27/18 00:37 02:56 Sodium 138 138 Potassium 4.2 4.1 Chloride 104 106 Carbon Dioxide 28 28 BUN 42 H 39 H Creatinine 1.00 0.99 Glucose 113 H 104 Calcium 8.4 L 8.2 L Cardiac Enzymes 01/27/18 Range/Units 02:56 Troponin I 0.03 (< 0.04) ng/mL - ABG Interpretation ABG results: PT/INR, D-dimer PT 18.5 Seconds (9.4-12.1) H 01/15/18 21:34 - VTE Documentation of Mechanical Device: Intermittent pneumatic compression device Consult Discharge Plan - Plan Referrals: Lynne Kim MD [Primary Care Provider] - (pcp has been requested) Prescriptions: Benzonatate [Tessalon] 200 mg PO TID PRN 7 Days #21 capsule PRN Reason: Cough Budesonide/Formoterol 160/4.5 [Symbicort 160/4.5] 2 puff IH BIDR 30 Days #1 inhaler Metoprolol [Lopressor] 50 mg PO BID 30 Days #60 tablet predniSONE [PredniSONE] 20 mg PO DAILY 30 Days #30 tablet Tamsulosin [Flomax] 0.4 mg PO DAILY 30 Days #30 capsule Tiotropium [Spiriva] 18 mcg IH DAILYR 30 Days #1 inh
[2018-01-28] MEDS: Nystatin SUSP 5 ML UD.LIQ PO SCH ×4 (08:24→22:03)
[2018-01-28] MEDS: Cholecalciferol (D-3) 1,000 UNIT TABLET PO SCH (08:24)
[2018-01-28] MEDS: predniSONE 20 MG TABLET PO SCH (08:24)
[2018-01-28] MEDS: Budesonide/Formoterol 160/4.5 MDI IH SCH ×2 (08:38→20:07)
[2018-01-28] MEDS: Tiotropium 18 MCG inhalation IH SCH (08:38)
[2018-01-28 09:09] LABS: BUN/Creatinine Ratio 38 (6-26); Blood Urea Nitrogen 34 mg/dL (8-23); Calcium 8.3 mg/dL (8.6-10.3); Carbon Dioxide 30 mEq/L (23-29); Chloride 106 mEq/L (98-107); Glucose 87 mg/dL (70-105); Osmolality,Calculated 293 (280-300); Potassium 4.4 mEq/L (3.5-5.1); Sodium 138 mEq/L (136-145); eGFR For African Americans > 60 (> 60); eGFR For Non-African Americans > 60 (> 60)
[2018-01-28 09:12] LABS: Basophils % 0.9 %; Eosinophils # 0.1 K/mcL (0.0-0.6); Eosinophils % 3.7 %; Hematocrit 23.3 % (37.5-50.1); Hemoglobin 7.6 g/dL (12.9-16.9); Immature Granulocytes % 10.5 % (0-4); Immature Platelets 1.4 % (1.1-6.1); Lymphocytes # 0.6 K/mcL (0.6-4.6); Lymphocytes % 17.6 %; Mean Corpuscular HGB Conc 32.6 g/dL (31.6-35.5); Mean Corpuscular Hemoglobin 31.8 pg (28.0-33.3); Mean Corpuscular Volume 97.5 fL (83.0-100.0); Mean Platelet Volume 9.9 fL (9.4-12.4); Monocytes # 0.2 K/mcL (0.0-1.3); Monocytes % 4.6 %; Red Blood Count 2.39 M/mcL (4.19-5.50); Segmented Neutrophils % 62.7 %
[2018-01-28 09:18] LABS: Platelet Count 30 K/mcL (140-400)
[2018-01-28 10:13] LABS: Platelet Estimate Decreased (Normal)
--- NOTE | 2018-01-28 10:44 | Event Note ---
Date of Encounter: 01/28/18 Time of Encounter: 10:40 Patient sleeping on my arrival - awakens easily. States having a good day, but tired. No family present. He is hoping for insurance approval tomorrow and continues to want transition to rehab. Discussed again the frequent blood draws and transfusion dependency, he continues to desire for present time. States "we will see how things go". Palliative following at a distance. skid worker will be contacting [facility] tomorrow for insurance approval
--- NOTE | 2018-01-28 16:36 | Internal Med Progress Note ---
Date of Encounter: 01/28/18 Time of Encounter: 16:36 - Assessment and plan (1) COPD (chronic obstructive pulmonary disease) Current Visit: Yes Status: Acute Qualifiers: COPD type: unspecified COPD Qualified Code(s): J44.9 - Chronic obstructive pulmonary disease, unspecified (2) Acute and chronic respiratory failure Current Visit: Yes Status: Acute Qualifiers: Respiratory failure complication: hypoxia Qualified Code(s): J96.21 - Acute and chronic respiratory failure with hypoxia (3) HCAP (healthcare-associated pneumonia) Current Visit: Yes Status: Acute (4) Acute myeloid leukemia Current Visit: Yes Status: Acute Qualifiers: Leukemia Active/Remission status: without remission Qualified Code(s): C92.00 - Acute myeloblastic leukemia, not having achieved remission (5) PAF (paroxysmal atrial fibrillation) Current Visit: No Status: Chronic - Subjective Interval history: Interval changes: 01/26/18: A&O x3 and breathing comfortably Required platelet transfusion this am No signs of bleeding 01/27/18: Early this am he went into SVT and was given 25 mg Lopressor This am rate controlld but hypotensive Required 250 ml fluid bolus to improve hypotension Despite changes above he was asx throughout 01/28/2018: HR better controlled No new complaints Still waiting for insurance approval at [facility] Assessment and plan (1) Acute and chronic respiratory failure Patient with HCAP, COPD exacerbation and fluid overload seen on x-ray. 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 - Bipap as needed - Hasnt been needed and breathing comfortably on NC at baseline - Xopenex Q6H - Off all antibiotics now - Continue PO steroids - Steroid taper after d/c (2) HCAP (healthcare-associated pneumonia) Completed 10 days of ABx treatment Completely resolved (3) COPD exacerbation COPD with home O2 Albuterol Nebs Continue Symbicort Lungs sound clear (4) PAF (paroxysmal atrial fibrillation) Rate controlled again after increasing Metoprolol to 50 BID No anticoagulation due to severe thrombocytopenia (5) HTN (hypertension) BP now in lower normal to normal limits. Hold off antihypertensive medications for now. (6) AML: New diagnosis Maintain Hgb between 7-8 and Ptl > 11K (per Med Onc) However; [facility] Hes had multiple Ptl transfusions and transfusions of PRBC He wants full treatment and will arrange this with Oncology - Constitutional Vitals: Temp Pulse Resp BP Pulse Ox 99.1 F 99 16 95/51 100 01/28/18 16:01 01/28/18 16:01 01/28/18 16:01 01/28/18 16:01 01/28/18 16:01 General appearance: Present: cachectic, A&O X 3, pleasant, underweight - Head Head exam: Present: atraumatic, normocephalic - Eye Eye exam: Present: PERRL, conjuntiva pink, sclera anicteric Pupils: Present: PERRL - Neck Neck exam general surgery: Present: full ROM, supple, trachea midline. Absent: lymphadenopathy, nuchal rigidity, thyromegaly - Respiratory Respiratory exam: Present: CTAB. Absent: accessory muscle use, rales, rhonchi, wheezes - Cardiovascular Cardiovascular exam: Present: RRR, +S1, +S2. Absent: diastolic murmur, gallop, rubs, systolic murmur, tachycardia - GI/Abdominal GI/Abdominal exam: Present: normal bowel sounds, soft, no peritoneal signs. Absent: distended, tenderness - Extremities Exam Extremities exam: Present: warm, radial pulses palpable and symmetrical. Absent : calf tenderness, cyanotic, pedal edema - Neurological Exam Neurological exam: Present: CN II-XII intact, oriented X3, no focal deficits. Absent: pronater drift, facial droop, speech deficit - Skin Skin exam: Present: dry, intact Internal Medicine: Result - Labs CBC & Chem 7: 01/28/18 07:50 01/28/18 07:50 Labs: Short CBC 01/28/18 Range/Units 07:50 WBC 3.2 L (4.3-11.1) K/mcL Hgb 7.6 L (12.9-16.9) g/dL Hct 23.3 L (37.5-50.1) % Plt Count 30 L* (140-400) K/mcL Neutrophils # 2.0 (1.6-8.9) K/mcL BMP 01/28/18 07:50 Sodium 138 Potassium 4.4 Chloride 106 Carbon Dioxide 30 H BUN 34 H Creatinine 0.89 Glucose 87 Calcium 8.3 L - ABG Interpretation ABG results: PT/INR, D-dimer PT 18.5 Seconds (9.4-12.1) H 01/15/18 21:34 - VTE Documentation of Mechanical Device: Intermittent pneumatic compression device Consult Discharge Plan - Plan Referrals: Lynne Kim MD [Primary Care Provider] - (pcp has been requested) Prescriptions: Benzonatate [Tessalon] 200 mg PO TID PRN 7 Days #21 capsule PRN Reason: Cough Budesonide/Formoterol 160/4.5 [Symbicort 160/4.5] 2 puff IH BIDR 30 Days #1 inhaler Metoprolol [Lopressor] 50 mg PO BID 30 Days #60 tablet predniSONE [PredniSONE] 20 mg PO DAILY 30 Days #30 tablet Tamsulosin [Flomax] 0.4 mg PO DAILY 30 Days #30 capsule Tiotropium [Spiriva] 18 mcg IH DAILYR 30 Days #1 inh
[2018-01-28] MEDS: ALPRAZolam 0.25 MG TABLET PO PRN (22:03)
[2018-01-28] MEDS: Melatonin 3 MG TABLET PO PRN (22:03)
[2018-01-28] MEDS: Latanoprost 2.5 ML BOTTLE BOTH EYES SCH (22:06)
[2018-01-29 02:01] LABS: Hemoglobin 6.9 g/dL (12.9-16.9); Mean Corpuscular Volume 96.8 fL (83.0-100.0); Red Cell Distribution Width 17.9 % (11.5-14.5)
[2018-01-29 02:03] LABS: Basophils % 0.3 %; Eosinophils # 0.1 K/mcL (0.0-0.6); Eosinophils % 3.1 %; Hematocrit 21.4 % (37.5-50.1); Immature Granulocytes % 12.9 % (0-4); Immature Platelets 1.9 % (1.1-6.1); Lymphocytes # 0.5 K/mcL (0.6-4.6); Lymphocytes % 16.4 %; Mean Corpuscular HGB Conc 32.2 g/dL (31.6-35.5); Mean Corpuscular Hemoglobin 31.2 pg (28.0-33.3); Mean Platelet Volume 9.3 fL (9.4-12.4); Monocytes # 0.1 K/mcL (0.0-1.3); Monocytes % 4.1 %; Nucleated Red Blood Cells 1.6 /100 WBC (0); Red Blood Count 2.21 M/mcL (4.19-5.50); Segmented Neutrophils % 63.2 %
[2018-01-29 02:14] LABS: BUN/Creatinine Ratio 47 (6-26); Blood Urea Nitrogen 37 mg/dL (8-23); Calcium 8.6 mg/dL (8.6-10.3); Carbon Dioxide 28 mEq/L (23-29); Chloride 104 mEq/L (98-107); Glucose 127 mg/dL (70-105); Osmolality,Calculated 292 (280-300); Potassium 4.5 mEq/L (3.5-5.1); Sodium 136 mEq/L (136-145); eGFR For African Americans > 60 (> 60); eGFR For Non-African Americans > 60 (> 60)
[2018-01-29 02:37] LABS: Platelet Count 21 K/mcL (140-400)
[2018-01-29] MEDS: Budesonide/Formoterol 160/4.5 MDI IH SCH ×2 (07:57→22:00)
[2018-01-29] MEDS: Tiotropium 18 MCG inhalation IH SCH (07:58)
[2018-01-29] MEDS: Cholecalciferol (D-3) 1,000 UNIT TABLET PO SCH (09:07)
[2018-01-29] MEDS: predniSONE 20 MG TABLET PO SCH (09:07)
[2018-01-29] MEDS: Nystatin SUSP 5 ML UD.LIQ PO SCH ×4 (09:07→21:10)
[2018-01-29] MEDS ORDERED: 0.9 % Sodium Chloride 250 ML ONE (11:17)
[2018-01-29] MEDS: ALPRAZolam 0.25 MG TABLET PO PRN (13:28)
--- NOTE | 2018-01-29 13:35 | Discharge Summary ---
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 He had Afib, fever, dyspnea and mild hypotension. He was given Levaquin for LLL PNA noted CXR and exam. He was gentle hydrated because of sepsis criteria and hypotension. 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 His Platelet count is 21K but no signs of bleeding. His Lactic acid is elevated at 2.7. Interval changes: He was accepted at [facility] today His Hbg dropped over night requiring transfusion of 1 unit of PRBCs His Platelet count has been stable in the 20K range He began having a nose bleed this afternoon. His NC dried out his nasal mucosa and with his low platelet count he began bleeding Gauze was placed in his nostrils to control the bleeding Hgb to be rechecked again tonight. His HR and BP are stable again. The back and chest pain experienced earler have resolved Hospital course: He was admitted with PNA and sepsis and completed a full antibiotic course. He went into AFib with RVR and was seen by cardiology and started on Metoprolol. During his hospital stay he was diagnosis of acute myeloid leukemia with severe thrombocytopenia and anemia requiring transfusion support throughout his stay. He was evaluated by medical oncology and wants to pursue treatment as an outpatient. The PNA was completely resolved during his hospital stay but it triggered an exacerbation of his COPD and he requred steroids, breathing treatments and supplemental oxygen. He required multiple platelet and PRBC transfusions to maintain his Hgb between 7-8 and his platellets >11K as determined by Med. Oncology. He worked with PT?OT who recomended rehab. He was accepted by [facility] and will be transferred when he becomes stable again following his nose bleed and brief episode of tachycardia with hypotension today. He was in sinus tachycardia and responded well to a 250 ml fluid bolus. The transfusion earlier today was stopped due to chest and back pain but he did not show signs of TRALI or TACO and did not develop respiratory distress or a rash. he was given benadryl and and Ativan to relax. Followup after discharge: He will need frequent cbc to evaluate his platelet and Hgb count. He may need transfusions as well. He will need to f/u with Medical oncology for initiation of therapy when stable enough to tolerate it. Discharge discussed with: patient, family, nurse, social work, case management, financial management consultant Time spent discussing smoking cessation with patient: more than 10 minutes - Time Spent with Patient Total time spent providing and/or coordinating discharge services: Greater than 30 minutes - Discharge Medications Prescriptions: Benzonatate [Tessalon] 200 mg PO TID PRN 7 Days #21 capsule PRN Reason: Cough Budesonide/Formoterol 160/4.5 [Symbicort 160/4.5] 2 puff IH BIDR 30 Days #1 inhaler Metoprolol [Lopressor] 50 mg PO BID 30 Days #60 tablet predniSONE [PredniSONE] 20 mg PO DAILY 30 Days #30 tablet Tamsulosin [Flomax] 0.4 mg PO DAILY 30 Days #30 capsule Tiotropium [Spiriva] 18 mcg IH DAILYR 30 Days #1 inh Home Medications: Simvastatin [Zocor] 40 mg PO HS 08/25/15 [History] Ipratropium/Albuterol Neb [Duoneb] 3 ml IH Q6HR PRN #120 inhsol 08/09/17 [Rx] Acetaminophen [Tylenol] 500 mg PO BID 09/15/17 [History] Cholecalciferol (Vitamin D3) [Vitamin D3] 1,000 unit PO DAILY 10/11/17 [History] Oxygen 3 each .ROUTE AD 12/11/17 [History] Latanoprost [Xalatan] 1 drop OP HS 01/08/18 [History] Ipratropium [place] 1 spr NS AD 01/16/18 [History] Benzonatate [Tessalon] 200 mg PO TID PRN 7 Days #21 capsule 01/25/18 [Rx] Budesonide/Formoterol 160/4.5 [Symbicort 160/4.5] 2 puff IH BIDR 30 Days #1 inhaler 01/25/18 [Rx] Metoprolol [Lopressor] 50 mg PO BID 30 Days #60 tablet 01/25/18 [Rx] Tamsulosin [Flomax] 0.4 mg PO DAILY 30 Days #30 capsule 01/25/18 [Rx] Tiotropium [Spiriva] 18 mcg IH DAILYR 30 Days #1 inh 01/25/18 [Rx] predniSONE [PredniSONE] 20 mg PO DAILY 30 Days #30 tablet 01/25/18 [Rx] Allergies/Adverse Reactions: 3 Allergy/AdvReac Type Severity Reaction Status Date / Time No Known Allergies Allergy Verified 12/11/17 15:00 Date of admission: 01/15/18 23:02 Primary care physician: Lynne Kim, Consults: 01/16/18 16:57 Consult to Oncology [CONS] Routine Consulting Provider: [facility] Reason for Consult: 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 Evaluate, develop and implement POC Consult to Physical Therapy [CONS] Routine Comment: Evaluate, develop and implement POC Reason for Consult: Patient medically stable. Disposition planning. Therapy - weakness in bed. 01/18/18 17:59 Consult to Palliative Care [CONS] Routine Comment: Consulting Provider: [facility] Reason for Consult: Goals of care Call Completed: No - Constitutional Vitals: Temp Pulse Resp BP Pulse Ox 98.6 F 98 16 108/54 97 01/29/18 12:31 01/29/18 12:31 01/29/18 12:31 01/29/18 12:31 01/29/18 12:31 General appearance: Present: cachectic, A&O X 3, pleasant, underweight, answers questions appropriately - Head Head exam: Present: atraumatic, normocephalic - Eye Eye exam: Present: PERRL, conjuntiva pink, sclera anicteric Pupils: Present: PERRL - Neck Neck exam general surgery: Present: supple, trachea midline. Absent: lymphadenopathy, tenderness, nuchal rigidity, thyromegaly - Respiratory Respiratory exam: Present: CTAB. Absent: accessory muscle use, rales, rhonchi, wheezes - Cardiovascular Cardiovascular exam: Present: RRR, +S1, +S2, tachycardia. Absent: diastolic murmur, gallop, rubs, systolic murmur - GI/Abdominal GI/Abdominal exam: Present: normal bowel sounds, soft, no peritoneal signs. Absent: distended, tenderness - Extremities Exam Extremities exam: Present: warm. Absent: calf tenderness, cyanotic, pedal edema - Neurological Exam Neurological exam: Present: CN II-XII intact, oriented X3, no focal deficits. Absent: pronater drift, facial droop, speech deficit - Psychiatric Psychiatric exam: Present: normal affect, normal mood - Skin Skin exam: Present: dry, intact - Patient Status Disposition: Still a Patient Condition: Fair - Discharge Instructions Follow Up With: Lynne Kim MD [Primary Care Provider] - (pcp has been requested) - VTE Documentation of Mechanical Device: Intermittent pneumatic compression device
[2018-01-29] MEDS ORDERED: 0.9 % Sodium Chloride 1,000 ML ONE (14:06)
[2018-01-29] MEDS ORDERED: 0.9 % Sodium Chloride 500 ML IVC ONE (14:21)
[2018-01-29 14:41] LABS: ABG Base Excess 5 mEq/L (-2 to 3); ABG HCO3 28 mEq/L (21-27); ABG Oxygen Saturation 94 % (95-98); ABG PCO2 33 mmHg (35-45); ABG PH 7.53 pH Units (7.32-7.45); ABG PO2 62 mmHg (85-104); ABG TCO2 29 mEq/L (20-26)
[2018-01-29 16:04] LABS: Bilirubin,Urine Negative (Negative); Blood,Urine Negative (Negative); Clarity,Urine Cloudy (Clear); Color,Urine Yellow (Yellow); Glucose,Urine (UA) Normal (Normal); Ketones,Urine 15 mg/dL (Negative); Leukocyte Esterase,Urine Negative (Negative); Nitrite,Urine Negative (Negative); PH,Urine 7.5 pH Units (5.0-8.0); Protein,Urine Negative (Neg-Trace); Specific Gravity,Urine 1.026 (1.010-1.025); Urobilinogen,Urine Normal (Normal)
[2018-01-29 18:14] LABS: Hematocrit 26.2 % (37.5-50.1); Mean Corpuscular HGB Conc 33.2 g/dL (31.6-35.5)
[2018-01-29 18:16] LABS: Eosinophils # 0.1 K/mcL (0.0-0.6); Hemoglobin 8.7 g/dL (12.9-16.9); Immature Platelets 2.8 % (1.1-6.1); Mean Corpuscular Hemoglobin 31.3 pg (28.0-33.3); Mean Corpuscular Volume 94.2 fL (83.0-100.0); Mean Platelet Volume 11.6 fL (9.4-12.4); Nucleated Red Blood Cells 1.4 /100 WBC (0); Red Blood Count 2.78 M/mcL (4.19-5.50); Red Cell Distribution Width 18.4 % (11.5-14.5)
[2018-01-29 18:50] LABS: Platelet Count 18 K/mcL (140-400)
[2018-01-29 19:13] LABS: Basophils # 0.1 K/mcL (0.0-0.2); Lymphocytes # 0.7 K/mcL (0.6-4.6); Monocytes # 0.1 K/mcL (0.0-1.3); Neutrophils # 3.4 K/mcL (1.6-8.9)
[2018-01-29 19:14] LABS: Platelet Estimate Marked Decrease (Normal); Spherocytes 1+ (Not Present)
--- NOTE | 2018-01-29 19:18 | Electrocardiograph Report ---
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
--- NOTE | 2018-01-29 20:21 | Electrocardiograph Report ---
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
[2018-01-29] MEDS: Latanoprost 2.5 ML BOTTLE BOTH EYES SCH (21:10)
[2018-01-29] MEDS: Melatonin 3 MG TABLET PO PRN (21:10)
[2018-01-30 00:37] LABS: WBC,Urine 0-3 per hpf (0-3)
[2018-01-30 00:38] LABS: Amorphous Sediment,Urine Many (Few); RBC,Urine 0-3 per hpf (0-3)
[2018-01-30 03:04] LABS: Basophils % 0.3 %; Hemoglobin 7.4 g/dL (12.9-16.9); Mean Corpuscular Hemoglobin 31.1 pg (28.0-33.3); Red Blood Count 2.38 M/mcL (4.19-5.50)
[2018-01-30 03:05] LABS: Eosinophils # 0.1 K/mcL (0.0-0.6); Eosinophils % 2.9 %; Hematocrit 22.3 % (37.5-50.1); Immature Platelets 4.6 % (1.1-6.1); Lymphocytes # 0.4 K/mcL (0.6-4.6); Lymphocytes % 12.2 %; Mean Corpuscular HGB Conc 33.2 g/dL (31.6-35.5); Mean Corpuscular Volume 93.7 fL (83.0-100.0); Monocytes # 0.3 K/mcL (0.0-1.3); Monocytes % 8.7 %; Neutrophils # 2.2 K/mcL (1.6-8.9); Nucleated Red Blood Cells 0.9 /100 WBC (0); Red Cell Distribution Width 18.3 % (11.5-14.5); Segmented Neutrophils % 62.9 %
[2018-01-30 03:11] LABS: Platelet Count 14 K/mcL (140-400)
[2018-01-30 03:36] LABS: Anisocytosis 1+ (Not Present); Platelet Estimate Marked Decrease (Normal)
--- NOTE | 2018-01-30 06:54 | Electrocardiograph Report ---
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
[2018-01-30] MEDS: Cholecalciferol (D-3) 1,000 UNIT TABLET PO SCH (08:34)
[2018-01-30] MEDS: Nystatin SUSP 5 ML UD.LIQ PO SCH (08:35)
--- NOTE | 2018-01-30 09:43 | Event Note ---
Date of Encounter: 01/30/18 Time of Encounter: 09:20 Patient asleep on arrival, awakens easily. Reports still tired today, but feeling pretty good. Discussed approval for insurance; patient reports not really sure he needs rehab but will go to make everyone happy. Platelets 14 today. Palliative care following at a distance.
[2018-01-30] MEDS: Budesonide/Formoterol 160/4.5 MDI IH SCH (10:38)
[2018-01-30] MEDS: Tiotropium 18 MCG inhalation IH SCH (10:39)
[2018-01-30] MEDS ORDERED: 0.9 % Sodium Chloride 500 ML ONE (11:59)
[2018-01-30 15:59] VITALS: BP 102/60
[2018-01-30 16:44] LABS: Hemoglobin 7.4 g/dL (12.9-16.9); Red Cell Distribution Width 18.2 % (11.5-14.5)
[2018-01-30 16:46] LABS: Hematocrit 22.4 % (37.5-50.1); Immature Platelets 3.8 % (1.1-6.1); Mean Corpuscular Volume 93.7 fL (83.0-100.0); Mean Platelet Volume 10.5 fL (9.4-12.4); Red Blood Count 2.39 M/mcL (4.19-5.50)
[2018-01-30 18:02] LABS: Hematocrit 23.6 % (37.5-50.1); Mean Corpuscular Volume 92.5 fL (83.0-100.0); Red Blood Count 2.55 M/mcL (4.19-5.50); Red Cell Distribution Width 18.6 % (11.5-14.5)
[2018-01-30 18:03] LABS: Hemoglobin 7.9 g/dL (12.9-16.9); Immature Platelets 3.9 % (1.1-6.1); Mean Corpuscular HGB Conc 33.5 g/dL (31.6-35.5); Mean Platelet Volume 10.7 fL (9.4-12.4)
--- NOTE | 2018-01-30 18:46 | Discharge Summary ---
- NOTES TO OUTPATIENT PROVIDER Notes to Outpatient Provider: Regular CBCs to evaluate Hgb and Plt counts. May need transfusions. Follow up with medical oncology when stable. Orders not resulted at time of discharge: Pending orders 01/29/18 14:31 Transfusion Reaction [BBK] Stat 01/31/18 04:00 CBC [Complete Blood Count] [HEME] AM 0400 Date of Encounter: 01/30/18 Time of Encounter: 18:44 - Discharge Diagnosis (1) Acute and chronic respiratory failure Priority: Primary Status: Acute Qualifiers: Respiratory failure complication: hypoxia Qualified Code(s): J96.21 - Acute and chronic respiratory failure with hypoxia (2) COPD (chronic obstructive pulmonary disease) Priority: Secondary Status: Resolved Qualifiers: COPD type: unspecified COPD Qualified Code(s): J44.9 - Chronic obstructive pulmonary disease, unspecified (3) Acute myeloid leukemia Priority: Secondary Status: Acute Qualifiers: Leukemia Active/Remission status: without remission Qualified Code(s): C92.00 - Acute myeloblastic leukemia, not having achieved remission (4) HCAP (healthcare-associated pneumonia) Priority: Secondary Status: Resolved (5) PAF (paroxysmal atrial fibrillation) Priority: Secondary Status: Chronic (6) Thrombocytopenia Priority: Secondary Status: Chronic (7) Anemia Priority: Secondary Status: Chronic Qualifiers: Anemia type: unspecified type Qualified Code(s): D64.9 - Anemia, unspecified Hospital course: Mr. Smart is a 87 year old male admitted with PNA and sepsis and completed a full antibiotic course. He went into AFib with RVR and was seen by cardiology and started on Metoprolol. During his hospital stay he was diagnosis of acute myeloid leukemia with severe thrombocytopenia and anemia requiring transfusion support throughout his stay. He was evaluated by medical oncology and wants to pursue treatment as an outpatient. The PNA was completely resolved during his hospital stay but it triggered an exacerbation of his COPD and he requred steroids, breathing treatments and supplemental oxygen. He required multiple platelet and PRBC transfusions to maintain his Hgb between 7-8 and his platellets >11K as determined by Med. Oncology. He worked with PT/OT who recommended rehab. [facility] and will be transferred when he becomes stable again following his nose bleed and brief episode of tachycardia with hypotension today. He was in sinus tachycardia and responded well to a 250 ml fluid bolus. The transfusion earlier today was stopped due to chest and back pain but he did not show signs of TRALI or TACO and did not develop respiratory distress or a rash. He was given benadryl and and Ativan to relax. Respiratory status was stable on day of discharge. He denies any further episodes of bleeding. He states that he is ready to go for rehab. He received platelets on day of discharge and platelet count improved to 50. He will be discharged to [facility] for rehab. Patient has met maximum benefit of this hospitalization and will be discharged to [facility] for rehab in stable condition. Discharge discussed with: patient, nurse, case management, other (Pharmacist) - Time Spent with Patient Total time spent providing and/or coordinating discharge services: Greater than 30 minutes - Discharge Medications Prescriptions: RX: Benzonatate [Tessalon] 200 mg PO TID PRN 7 Days #21 capsule PRN Reason: Cough RX: Budesonide/Formoterol 160/4.5 [Symbicort 160/4.5] 2 puff IH BIDR 30 Days #1 inhaler RX: Metoprolol [Lopressor] 50 mg PO BID 30 Days #60 tablet RX: predniSONE [PredniSONE] 20 mg PO DAILY 30 Days #30 tablet RX: Tamsulosin [Flomax] 0.4 mg PO DAILY 30 Days #30 capsule RX: Tiotropium [Spiriva] 18 mcg IH DAILYR 30 Days #1 inh Home Medications: RX: Simvastatin [Zocor] 40 mg PO HS 08/25/15 [History] RX: Ipratropium/Albuterol Neb [Duoneb] 3 ml IH Q6HR PRN #120 inhsol 08/09/17 [Rx ] RX: Acetaminophen [Tylenol] 500 mg PO BID 09/15/17 [History] RX: Cholecalciferol (Vitamin D3) [Vitamin D3] 1,000 unit PO DAILY 10/11/17 [ History] RX: Oxygen 3 each .ROUTE AD 12/11/17 [History] RX: Latanoprost [Xalatan] 1 drop OP HS 01/08/18 [History] RX: Ipratropium [place] 1 spr NS AD 01/16/18 [History] RX: Benzonatate [Tessalon] 200 mg PO TID PRN 7 Days #21 capsule 01/25/18 [Rx] RX: Budesonide/Formoterol 160/4.5 [Symbicort 160/4.5] 2 puff IH BIDR 30 Days #1 inhaler 01/25/18 [Rx] RX: Metoprolol [Lopressor] 50 mg PO BID 30 Days #60 tablet 01/25/18 [Rx] RX: Tamsulosin [Flomax] 0.4 mg PO DAILY 30 Days #30 capsule 01/25/18 [Rx] RX: Tiotropium [Spiriva] 18 mcg IH DAILYR 30 Days #1 inh 01/25/18 [Rx] RX: predniSONE [PredniSONE] 20 mg PO DAILY 30 Days #30 tablet 01/25/18 [Rx] Allergies/Adverse Reactions: 3 Allergy/AdvReac Type Severity Reaction Status Date / Time No Known Allergies Allergy Verified 12/11/17 15:00 Date of admission: 01/15/18 23:02 Primary care physician: Lynne Kim, Consults: 01/16/18 16:57 Consult to Oncology [CONS] Routine Consulting Provider: [facility] Reason for Consult: 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 Evaluate, develop and implement POC Consult to Physical Therapy [CONS] Routine Comment: Evaluate, develop and implement POC Reason for Consult: Patient medically stable. Disposition planning. Therapy - weakness in bed. 01/18/18 17:59 Consult to Palliative Care [CONS] Routine Comment: Consulting Provider: [facility] Reason for Consult: Goals of care Call Completed: No Discharging clinician: Mg Ashraf Anticipated date of discharge: 01/30/18 - Constitutional Vitals: Temp Pulse Resp BP Pulse Ox 98.8 F 107 16 102/60 100 01/30/18 15:57 01/30/18 15:57 01/30/18 15:57 01/30/18 15:57 01/30/18 15:57 General appearance: Present: cachectic, A&O X 3, pleasant, underweight, answers questions appropriately - Respiratory Respiratory exam: Present: CTAB. Absent: accessory muscle use, rales, rhonchi, wheezes Additional comments: Normal WOB - Cardiovascular Cardiovascular exam: Present: RRR, +S1, +S2. Absent: diastolic murmur, gallop, rubs, systolic murmur Additional comments: No BLE edema - GI/Abdominal GI/Abdominal exam: Present: normal bowel sounds, soft. Absent: distended, hepatomegaly, mass, splenomegaly, tenderness - Psychiatric Psychiatric exam: Present: normal affect, normal mood. Absent: anxious, depressed - Skin Skin exam: Present: dry, intact, warm. Absent: cyanosis, rash - Patient Status Disposition: Transfer Inpatient Rehab Fac Condition: Fair Overall status at discharge: patient is progressing back to baseline - Discharge Instructions Follow Up With: Lynne Kim MD [Primary Care Provider] - (pcp has been requested) - Diet and Activity Activity: as per physical therapy, wear oxygen at all times - VTE Documentation of Mechanical Device: Intermittent pneumatic compression device
--- NOTE | 2018-01-30 19:00 | Physician Discharge Referral ---
ExtendedCare Referral Info [facility] Level of Care: Skilled - Diagnosis (1) Acute and chronic respiratory failure Priority: Primary Status: Acute (2) COPD (chronic obstructive pulmonary disease) Priority: Secondary Status: Resolved (3) Acute myeloid leukemia Priority: Secondary Status: Acute (4) HCAP (healthcare-associated pneumonia) Priority: Secondary Status: Resolved (5) PAF (paroxysmal atrial fibrillation) Priority: Secondary Status: Chronic (6) Thrombocytopenia Priority: Secondary Status: Chronic (7) Anemia Priority: Secondary Status: Chronic Expected Duration of Placement: 6-8 weeks Prognosis: Fair Aware of Diagnosis: Patient, Family Aware of Prognosis: Patient, Family - Transfer Medications Prescriptions: Benzonatate [Tessalon] 200 mg PO TID PRN 7 Days #21 capsule PRN Reason: Cough Budesonide/Formoterol 160/4.5 [Symbicort 160/4.5] 2 puff IH BIDR 30 Days #1 inhaler Metoprolol [Lopressor] 50 mg PO BID 30 Days #60 tablet predniSONE [PredniSONE] 20 mg PO DAILY 30 Days #30 tablet Tamsulosin [Flomax] 0.4 mg PO DAILY 30 Days #30 capsule Tiotropium [Spiriva] 18 mcg IH DAILYR 30 Days #1 inh Home Medications: Simvastatin [Zocor] 40 mg PO HS 08/25/15 [History] Ipratropium/Albuterol Neb [Duoneb] 3 ml IH Q6HR PRN #120 inhsol 08/09/17 [Rx] Acetaminophen [Tylenol] 500 mg PO BID 09/15/17 [History] Cholecalciferol (Vitamin D3) [Vitamin D3] 1,000 unit PO DAILY 10/11/17 [History] Oxygen 3 each .ROUTE AD 12/11/17 [History] Latanoprost [Xalatan] 1 drop OP HS 01/08/18 [History] Ipratropium [place] 1 spr NS AD 01/16/18 [History] Benzonatate [Tessalon] 200 mg PO TID PRN 7 Days #21 capsule 01/25/18 [Rx] Budesonide/Formoterol 160/4.5 [Symbicort 160/4.5] 2 puff IH BIDR 30 Days #1 inhaler 01/25/18 [Rx] Metoprolol [Lopressor] 50 mg PO BID 30 Days #60 tablet 01/25/18 [Rx] Tamsulosin [Flomax] 0.4 mg PO DAILY 30 Days #30 capsule 01/25/18 [Rx] Tiotropium [Spiriva] 18 mcg IH DAILYR 30 Days #1 inh 01/25/18 [Rx] predniSONE [PredniSONE] 20 mg PO DAILY 30 Days #30 tablet 01/25/18 [Rx] Allergies/Adverse Reactions: 3 Allergy/AdvReac Type Severity Reaction Status Date / Time No Known Allergies Allergy Verified 12/11/17 15:00 - Respiratory Orders Oxygen / L per min (4L NC) Smoking Cessation: Smoking cessation has been advised. For more information, call the [place] Tobacco Quit Line at 7-008-ELWB-NOW. - Mobility Orders Other (Per physical therapy) - Rehabiliation Orders Rehab Potential: Fair Rehab Orders: Evaluation for Physical Therapy, Evaluation for Occupational Therapy - Diet Orders Cardiac CERTIFICATION: I certify that the transfer of the above named patient to an Extended Care Facility is necessary for the continuing treatment of the diagnosis listed. The above information is true and accurate reflection of patient's current condition. Confidential - Redisclosure prohibited without a patient's written consent.
== END 2018-01-30 21:25 | DRG 871 ==
LOC: 2NENU → SUATTDRO 23:02
PROVIDERS: ADMIT Family Medicine; ATTEND Student in an Organized Health Care Education/Training Program